=== PATIENT | female | born 1970 | race Caucasian/White ===

== ENCOUNTER 2017-09-10 19:21 | Inpatient (IN) ==
--- NOTE | 2017-09-10 19:41 | Emergency Department Note ---
Disposition Clinical Impression: Pneumonia Qualifiers: Pneumonia type: due to unspecified organism Laterality: bilateral Lung location : unspecified part of lung Qualified Code(s): J18.9 - Pneumonia, unspecified organism Chest pain Qualifiers: Chest pain type: unspecified Qualified Code(s): R07.9 - Chest pain, unspecified Disposition: Admitted As Inpatient Condition: Fair Referrals: Joey Rg DO [Primary Care Provider] - Forms: ED Satisfaction Letter Time of Disposition: 21:54 SOB HPI - General Chief Complaint: ED Shortness of Breath/Dyspnea Stated Complaint: Dyspnea Time Seen by Provider: 09/10/17 19:37 Source: patient, family Limitations: no limitations Nursing Notes Reviewed: Yes Vital Signs Reviewed: Yes - History of Present Illness 46-year-old female who presents much permanent complaining of off congestion. Patient was diagnosed 5 days ago with pneumonia although chest x-ray wasn't done and was placed on Levaquin. Patient has a history of couple months back of the bilateral pneumonia going into arts requiring intubation for 9 days. Pt Subjective Complaint: shortness of breath, cough Onset (ago): Just [employer] Context: recent illness Severity: moderate Consistency/Duration: constant Improves with: nothing Worsens with: exertion Known history of: recurrent pneumonia Associated symptoms: Reports: fever, cough, wheezing Treatment prior to arrival: other (To biotics) Cough present: Yes Cough Frequency: Continuous - Related Data Home Medications Medication Instructions Recorded Confirmed amLODIPine [Norvasc] 5 mg PO DAILY 07/05/17 07/05/17 Previous Rx's Medication Instructions Recorded Albuterol Sulfate [Ventolin Hfa] 2 puff IH Q4-6H PRN #1 hfa.aer.ad 09/06/17 Levofloxacin [Levaquin] 500 mg PO DAILY #10 tablet 09/06/17 Promethazine/Dextromethorphan 5 ml PO Q4-6H PRN #120 ml 09/06/17 [Promethazine-Dm Syrup] predniSONE [PredniSONE] 40 mg PO DAILY #10 tablet 09/06/17 Allergies Allergy/AdvReac Type Severity Reaction Status Date / Time morphine Allergy Itching Verified 09/10/17 19:24 Past Medical History - Past Medical History Medical history: Reports: COPD, hypertension, other Surgical history: Reports: hysterectomy (2005), other (tonsillectomy) Psychiatric history: Reports: PTSD - Social History Smoking Status: Current every day smoker Smokeless Tobacco Status: No Alcohol use: Reports: none Drug use: Reports: none Physical Exam - General Limitations: no limitations General appearance: alert, in no apparent distress - Head Head exam: atraumatic, normocephalic, normal inspection - Eye Eye exam: Present: normal appearance, PERRL, EOMI - ENT ENT exam: normal exam, normal oropharynx, mucous membranes moist - Neck Neck exam: Present: normal inspection, full ROM, trachea midline - Chest Chest inspection: Present: normal inspection, symmetric chest wall rise - Respiratory Respiratory exam: Present: normal lung sounds bilaterally - Cardiovascular Cardiovascular exam: Present: regular rate, normal rhythm, normal heart sounds - Abdominal Exam Abdominal exam: Present: soft, Non-Tender. Absent: tenderness, distention, guarding, rebound, rigidity - Extremities Exam Extremities exam: Present: normal inspection, full ROM. Absent: tenderness, pedal edema - Expanded Lower Extremity Exam Neurovascular/Tendon exam: Absent: motor deficit, sensory deficit, tendon deficit Gait: observed and normal - Back Exam Back exam: Present: normal inspection, full ROM. Absent: tenderness - Neurological Exam Neurological exam: Present: alert, oriented X3 - Psychiatric Psychiatric exam: Present: normal affect, normal mood - Skin Skin exam: Present: warm, dry, intact, normal color Course - Reevaluation(s) Reevaluation #1: 46-year-old has a history of previous pneumonia causing ARDS causing a prolonged intubation. Comes in with cough and congestion. Patient was started on antibiotics but has gotten progressively worse. Workup here a CT scan does show bilateral infiltrates. Patient will be admitted for further evaluation and treatment. Time: 21:55 - Consultations Consultation #1: Discussed with , admit-he requests Zosyn, vancomycin, Zithromax Time: 21:55 Vital Signs Temperature 98.2 F 09/10/17 19:24 Pulse Rate 103 09/10/17 19:24 Respiratory Rate 24 09/10/17 19:24 Blood Pressure 150/100 09/10/17 19:24 O2 Sat by Pulse Oximetry 100 09/10/17 19:24 Temperature 98.2 F 09/10/17 19:24 Pulse Rate 103 09/10/17 19:24 Respiratory Rate 24 09/10/17 19:24 Blood Pressure 150/100 09/10/17 19:24 O2 Sat by Pulse Oximetry 100 09/10/17 19:24 Oxygen Delivery Oxygen Delivery Room Air Shortness of Breath/Dyspnea - Lab Data Lab results reviewed: Yes I reviewed the patient's lab results. Result diagrams: 09/10/17 20:09 09/10/17 20:09 Lab Results 09/10/17 09/10/17 09/10/17 Range/Units 20:09 20:09 20:09 WBC 11.0 (4.3-11.1) K/mcL RBC 4.08 (3.82-4.97) M/mcL Hgb 13.1 (11.5-15.4) g/dL Hct 37.6 (35.3-44.9) % MCV 92.2 (83.0-100.0) fL MCH 32.1 (28.0-33.3) pg MCHC 34.8 (31.6-35.5) g/dL RDW 14.6 H (11.5-14.5) % Plt Count 251 (140-400) K/mcL MPV 10.0 (9.4-12.4) fL Immature Gran % 0.5 (0-4) % Seg Neutrophils % 76.0 % Lymphocytes % 18.6 % Monocytes % 4.2 % Eosinophils % 0.5 % Basophils % 0.2 % Neutrophils # 8.3 (1.6-8.9) K/mcL Lymphocytes # 2.0 (0.6-4.6) K/mcL Monocytes # 0.5 (0.0-1.3) K/mcL Eosinophils # 0.1 (0.0-0.6) K/mcL Basophils # 0.0 (0.0-0.2) K/mcL D-Dimer (0-500) ng/mLFEU Sodium 138 (136-145) mEq/L Potassium 2.9 L (3.5-4.5) mEq/L Chloride 108 (98-109) mEq/L Carbon Dioxide 17 L (19-29) mEq/L BUN 12 (7-20) mg/dL Creatinine 0.78 (0.57-1.11) mg/dL Est GFR ( Amer) > 60 (> 60) Est GFR (Non-Af Amer) > 60 (> 60) BUN/Creatinine Ratio 15 (6-26) Glucose 95 (70-99) mg/dL Calculated Osmolality 286 (280-300) Lactic Acid 2.3 H (0.5-2.2) mmol/L Calcium 9.7 (8.6-10.8) mg/dL Troponin I (0-0.03) ng/mL B-Natriuretic Peptide (0-100) pg/mL 09/10/17 09/10/17 09/10/17 Range/Units 20:09 20:09 20:09 WBC (4.3-11.1) K/mcL RBC (3.82-4.97) M/mcL Hgb (11.5-15.4) g/dL Hct (35.3-44.9) % MCV (83.0-100.0) fL MCH (28.0-33.3) pg MCHC (31.6-35.5) g/dL RDW (11.5-14.5) % Plt Count (140-400) K/mcL MPV (9.4-12.4) fL Immature Gran % (0-4) % Seg Neutrophils % % Lymphocytes % % Monocytes % % Eosinophils % % Basophils % % Neutrophils # (1.6-8.9) K/mcL Lymphocytes # (0.6-4.6) K/mcL Monocytes # (0.0-1.3) K/mcL Eosinophils # (0.0-0.6) K/mcL Basophils # (0.0-0.2) K/mcL D-Dimer 520 H (0-500) ng/mLFEU Sodium (136-145) mEq/L Potassium (3.5-4.5) mEq/L Chloride (98-109) mEq/L Carbon Dioxide (19-29) mEq/L BUN (7-20) mg/dL Creatinine (0.57-1.11) mg/dL Est GFR ( Amer) (> 60) Est GFR (Non-Af Amer) (> 60) BUN/Creatinine Ratio (6-26) Glucose (70-99) mg/dL Calculated Osmolality (280-300) Lactic Acid (0.5-2.2) mmol/L Calcium (8.6-10.8) mg/dL Troponin I 0.01 (0-0.03) ng/mL B-Natriuretic Peptide 14 (0-100) pg/mL - Radiology Data Radiology results reviewed: Yes I reviewed the patient's radiology results. Chest X-Ray 09/10/17 19:38 IMPRESSION: No acute cardiopulmonary disease. D/ / Tj Arambula MD / Tj Arambula MD Interpreting Provider: Tj Arambula MD Chest CTA 09/10/17 20:48 IMPRESSION: No evidence of pulmonary embolism or acute aortic disease. Changes of severe emphysema as well as interstitial pneumonitis with alveolar infiltrates in the upper and lower lobes. No evidence of pleural disease or adenopathy. D/ / 09/10/2017 21:48:58 Skyla Miguel MD / joann Interpreting Provider: Skyla Miguel MD - EKG Data EKG attestation: Yes I reviewed and interpreted this EKG. EKG shows normal: Reports: sinus rhythm Rate: Reports: normal Rhythm: Reports: NSR, PVC's Interpretation: Reports: no acute changes
[2017-09-10 20:20] LABS: Basophils % 0.2 %; Eosinophils # 0.1 K/mcL (0.0-0.6); Eosinophils % 0.5 %; Hematocrit 37.6 % (35.3-44.9); Hemoglobin 13.1 g/dL (11.5-15.4); Immature Granulocytes % 0.5 % (0-4); Lymphocytes % 18.6 %; Mean Corpuscular HGB Conc 34.8 g/dL (31.6-35.5); Mean Corpuscular Hemoglobin 32.1 pg (28.0-33.3); Mean Corpuscular Volume 92.2 fL (83.0-100.0); Monocytes # 0.5 K/mcL (0.0-1.3); Monocytes % 4.2 %; Neutrophils # 8.3 K/mcL (1.6-8.9); Platelet Count 251 K/mcL (140-400); Red Blood Count 4.08 M/mcL (3.82-4.97); Red Cell Distribution Width 14.6 % (11.5-14.5)
[2017-09-10 20:31] LABS: BUN/Creatinine Ratio 15 (6-26); Blood Urea Nitrogen 12 mg/dL (7-20); Calcium 9.7 mg/dL (8.6-10.8); Carbon Dioxide 17 mEq/L (19-29); Chloride 108 mEq/L (98-109); Glucose 95 mg/dL (70-99); Osmolality,Calculated 286 (280-300); Potassium 2.9 mEq/L (3.5-4.5); Sodium 138 mEq/L (136-145); eGFR For African Americans > 60 (> 60); eGFR For Non-African Americans > 60 (> 60)
[2017-09-10] MEDS ORDERED: *HR* HYDROmorphone (PF) 1 MG/ML SYRINGE IVP ONE (21:42)
[2017-09-10] MEDS ORDERED: Ondansetron 4 MG/2 ML VIAL IVP ONE (21:42)
[2017-09-10] MEDS ORDERED: Piperacillin/Tazobactam 3.375 GM in D5% in Water (Mini-Bag+) 100 ML IVPB ONE (21:52)
[2017-09-10] MEDS ORDERED: Azithromycin 500 MG in D5% in Water 250 ML IVPB ONE (21:52)
[2017-09-10] MEDS ORDERED: Vancomycin 1,000 MG in D5% in Water 250 ML IVPB ONE (21:52)
[2017-09-10] MEDS ORDERED: Ondansetron 4 MG/2 ML VIAL IVP PRN (22:00)
[2017-09-10] MEDS ORDERED: Naloxone 0.4 MG/ML INJ IVP PRN (22:00)
[2017-09-10] MEDS ORDERED: Acetaminophen 325 MG TABLET PO PRN (22:00)
[2017-09-10] MEDS ORDERED: Piperacillin/Tazobactam 3.375 GM in Water for inj. (sterile) 20 ML IVPB ONE (22:15)
--- NOTE | 2017-09-10 22:57 | Internal Med History&Physical ---
Date of Encounter: 09/10/17 Time of Encounter: 22:15 Assessment and Plan (1) Acute respiratory distress Current visit: Yes Status: Acute Will admit the pt into Tele Reviewed CTA of chest : No evidence of pulmonary embolism . acute interstitial pneumonitis with alveolar infiltrates in the upper and lower lobes Reviewed CXR by myself - showed acute infiltrates in both lower lobes, [place] bronchial cuffing and thickening noticed Started her on high dose IV steroids Also placed her on frequent Duoneb + O2 With recent VDRF, she is high risk for resp failure and ARDS again, need high level care and close monitoring will start her on empirical abx Cefepime, Levaquin and Vancomycin Lactic acid trended down Will f/u on blood cx sent for sputum cx, Strep PNA, Legionella and Resp viral panel (2) COPD with acute exacerbation Current visit: Yes Status: Acute started her on high dose IV steroids cont Duoneb (3) Pneumonia Current visit: Yes Status: Acute Mostly bacterial on empirical abx Qualifiers: Pneumonia type: due to unspecified organism Laterality: bilateral Lung location: unspecified part of lung Qualified Code(s): J18.9 - Pneumonia, unspecified organism (4) Tobacco dependence Current visit: Yes Status: Acute Counseled to quit placed her on nicotine patch Internal Medicine - H&P: HPI Chief complaint: Shortness of breath Admitted From: Emergency Dept Plans for Post Hospital Care: Home History of present illness: Ms. Bonilla is a 46 year old female with possible COPD, Chronic tobacco dependence who was admitted here in June with respiratory failure due to pneumonia, got intubated too, now she presented to ER with 7 - 10 days h/o progressively worsening SOB and Cough and expectoration. Pt was seen at urgent care center few days ago started her on PO Steroids and Abx Levaquin. However her symptoms has not improved. She denied any CP. She is alert, awake and O x 3 , able to finish full sentence wit out any pause. Her CT of Chest showed interstitial pnuemonitis Past Med Surg Social Fam HX - Past Medical History Medical history: COPD, hypertension, other Psychiatric history: PTSD - Past Surgical History Surgical History: hysterectomy (2006), other (tonsillectomy) - Social History Smoking Status: Current every day smoker Smokeless Tobacco Status: No Alcohol use: none Drug use: none - Additional Family History Additional family history: Family hsitory reviewed and non contribuitory to current problem. Internal Medicine - H&P: Meds amLODIPine [Norvasc] 5 mg PO DAILY 07/05/17 [History] Albuterol Sulfate [Ventolin Hfa] 2 puff IH Q4-6H PRN #1 hfa.aer.ad 09/06/17 [Rx] Levofloxacin [Levaquin] 500 mg PO DAILY #10 tablet 09/06/17 [Rx] Promethazine/Dextromethorphan [Promethazine-Dm Syrup] 5 ml PO Q4-6H PRN #120 ml 09/06/17 [Rx] predniSONE [PredniSONE] 40 mg PO DAILY #10 tablet 09/06/17 [Rx] 3 Allergy/AdvReac Type Severity Reaction Status Date / Time morphine Allergy Itching Verified 09/10/17 19:24 All Systems PM: A 10-system review of systems was performed and is negative for pertinent findings except as documented above in the HPI. Review of systems: All the systems are reviewed everything is benign except the systems and symptoms I mentioned in the history of present illness - Constitutional Vitals: Temp Pulse Resp BP Pulse Ox 98.2 F 83 18 129/89 98 09/10/17 19:24 09/10/17 22:26 09/10/17 22:36 09/10/17 22:36 09/10/17 22:26 General appearance: Present: A&O X 3, no acute distress, answers questions appropriately - Head Head exam: Present: atraumatic, normal inspection - Neck Neck exam general surgery: Present: supple - Respiratory Respiratory exam: Present: decreased breath sounds, respiratory distress (mild) , rhonchi (mild), wheezes (diffuse wheezing). Absent: rales - Cardiovascular Cardiovascular exam: Present: RRR, +S1, +S2. Absent: diastolic murmur, gallop, rubs, systolic murmur - GI/Abdominal GI/Abdominal exam: Present: normal bowel sounds, soft, no peritoneal signs. Absent: distended, tenderness - Extremities Exam Extremities exam: Absent: calf tenderness, pedal edema, tenderness - Back Exam Back exam: Absent: CVA tenderness (L), CVA tenderness (R) - Neurological Exam Neurological exam: Present: alert, oriented X3 - Psychiatric Psychiatric exam: Present: anxious - Skin Skin exam: Absent: rash Internal Med - H&P Results - Labs CBC & Chem 7: 12/17/17 20:09 09/10/17 20:09
[2017-09-10] MEDS ORDERED: Vancomycin 1,250 MG in D5% in Water 250 ML IVPB SCH (23:00)
[2017-09-10] MEDS: Ipratropium/Albuterol Neb 3 ML IH SCH ×2 (23:50→23:51)
[2017-09-11] MEDS: Nicotine 21 MG PATCH.TD24 TD SCH ×2 (00:03→07:37)
[2017-09-11] MEDS: Cefepime HCl 1,000 MG in Water for inj. (sterile) 10 ML IVPB SCH ×3 (00:03→15:12)
[2017-09-11] MEDS: MethylPREDNISolone 40 MG/ML VIAL IVP SCH ×4 (00:04→16:41)
[2017-09-11] MEDS: *HR* HYDROcodone/Acet 5/325 mg TABLET PO PRN ×4 (00:09→20:12)
[2017-09-11] MEDS: *HR* HYDROmorphone (PF) 1 MG/ML SYRINGE IVP PRN ×3 (04:08→16:41)
[2017-09-11] MEDS: Ipratropium/Albuterol Neb 3 ML IH SCH ×6 (04:21→23:03)
[2017-09-11 04:32] LABS: Basophils % 0.1 %; Eosinophils % 0.1 %; Hematocrit 33.4 % (35.3-44.9); Immature Granulocytes % 0.4 % (0-4); Lymphocytes # 0.8 K/mcL (0.6-4.6); Lymphocytes % 10.6 %; Mean Corpuscular HGB Conc 33.5 g/dL (31.6-35.5); Mean Corpuscular Hemoglobin 32.2 pg (28.0-33.3); Mean Platelet Volume 10.3 fL (9.4-12.4); Monocytes # 0.2 K/mcL (0.0-1.3); Neutrophils # 6.4 K/mcL (1.6-8.9); Platelet Count 190 K/mcL (140-400); Red Blood Count 3.48 M/mcL (3.82-4.97); Red Cell Distribution Width 14.8 % (11.5-14.5); Segmented Neutrophils % 86.8 %
[2017-09-11 04:35] LABS: Hemoglobin 11.2 g/dL (11.5-15.4)
[2017-09-11 04:46] LABS: BUN/Creatinine Ratio 14 (6-26); Blood Urea Nitrogen 11 mg/dL (7-20); Calcium 8.7 mg/dL (8.6-10.8); Carbon Dioxide 20 mEq/L (19-29); Chloride 110 mEq/L (98-109); Glucose 116 mg/dL (70-99); Magnesium 1.4 mg/dL (1.6-2.6); Osmolality,Calculated 286 (280-300); Sodium 138 mEq/L (136-145); eGFR For African Americans > 60 (> 60); eGFR For Non-African Americans > 60 (> 60)
[2017-09-11] MEDS: *HR* Enoxaparin 40 MG/0.4 ML SYRINGE SQ SCH (06:22)
[2017-09-11] MEDS: Levofloxacin 500 MG/100 ML 500 MG/100 ML BAG IVPB SCH (07:38)
[2017-09-11] MEDS: Vancomycin 1,250 MG in D5% in Water 250 ML IVPB SCH ×2 (10:54→22:18)
[2017-09-11] MEDS ORDERED: Methocarbamol 750 MG TABLET PO PRN (12:00)
[2017-09-11] MEDS ORDERED: hydrOXYzine pamoate 25 MG CAPSULE PO PRN (12:00)
[2017-09-11] MEDS: amLODIPine 5 MG TABLET PO SCH (12:52)
--- NOTE | 2017-09-11 14:30 | Internal Med Progress Note ---
Date of Encounter: 09/11/17 Time of Encounter: 14:28 - Assessment and plan (1) Pneumonia Current Visit: Yes Status: Acute Assessment and plan: HCAP Organism unknowm Hx of Pneumonia in 06/2017 with ARDS Continue vanco, levaquin, cefepime Check influenza Ag Urine legionella and Strep Ag negative, Sputum prelim no growth Patient has no O2 requirements at this time Continue to monitor Qualifiers: Pneumonia type: due to unspecified organism Laterality: bilateral Lung location: unspecified part of lung Qualified Code(s): J18.9 - Pneumonia, unspecified organism (2) COPD with acute exacerbation Current Visit: Yes Status: Acute Assessment and plan: Continue duonesb, steroids, antibipotics , as above (3) Tobacco dependence Current Visit: Yes Status: Chronic Assessment and plan: NRT - Subjective Interval history: Seen and evaluated with family at bedside 46 F admitted and being managed for COPDE and HCAP She reports she feels miinimal improvement, no new complains - Constitutional Vitals: Temp Pulse Resp BP Pulse Ox 98.5 F 82 22 135/84 99 09/11/17 11:32 09/11/17 11:32 09/11/17 11:32 09/11/17 11:32 09/11/17 11:32 General appearance: Present: A&O X 3, no acute distress, answers questions appropriately - Head Head exam: Present: atraumatic, normocephalic - Eye Eye exam: Present: PERRL, conjuntiva pink, sclera anicteric Pupils: Present: PERRL - Neck Neck exam general surgery: Present: supple, trachea midline. Absent: lymphadenopathy - Respiratory Respiratory exam: Present: decreased breath sounds - Cardiovascular Cardiovascular exam: Present: RRR, +S1, +S2. Absent: diastolic murmur, gallop, rubs, systolic murmur - GI/Abdominal GI/Abdominal exam: Present: normal bowel sounds, soft, no peritoneal signs. Absent: distended, tenderness - Extremities Exam Extremities exam: Present: warm, radial pulses palpable and symmetrical. Absent : calf tenderness, cyanotic, pedal edema - Neurological Exam Neurological exam: Present: alert, CN II-XII intact, oriented X3, no focal deficits. Absent: pronater drift, facial droop, speech deficit - Skin Skin exam: Present: dry, intact Internal Medicine: Result - Labs CBC & Chem 7: 12/18/17 04:08 09/11/17 04:08 Labs: Short CBC 09/11/17 Range/Units 04:08 WBC 7.4 (4.3-11.1) K/mcL Hgb 11.2 L D (11.5-15.4) g/dL Hct 33.4 L (35.3-44.9) % Plt Count 190 (140-400) K/mcL Neutrophils # 6.4 (1.6-8.9) K/mcL BMP 09/11/17 04:08 Sodium 138 Potassium 4.0 D Chloride 110 H Carbon Dioxide 20 BUN 11 Creatinine 0.78 Glucose 116 H Calcium 8.7 Cardiac Enzymes 09/11/17 09/11/17 Range/Units 04:08 09:20 Troponin I 0.01 0.00 (0-0.03) ng/mL - ABG Interpretation ABG results: PT/INR, D-dimer D-Dimer 520 ng/mLFEU (0-500) H 09/10/17 20:09 Consult Discharge Plan - Plan Referrals: Joey Rg DO [Primary Care Provider] - 09/12/17 2:00 pm
[2017-09-11] MEDS: Gabapentin 400 MG CAPSULE PO SCH ×2 (15:11→22:17)
[2017-09-11] MEDS ORDERED: traZODone 50 MG TABLET PO SCH (21:00)
[2017-09-12] MEDS: Cefepime HCl 1,000 MG in Water for inj. (sterile) 10 ML IVPB SCH ×2 (00:09→08:38)
[2017-09-12] MEDS: *HR* HYDROmorphone (PF) 1 MG/ML SYRINGE IVP PRN ×3 (00:10→11:51)
[2017-09-12] MEDS: MethylPREDNISolone 40 MG/ML VIAL IVP SCH ×3 (00:10→12:28)
[2017-09-12] MEDS: Ipratropium/Albuterol Neb 3 ML IH SCH ×3 (03:26→11:45)
[2017-09-12] MEDS: *HR* HYDROcodone/Acet 5/325 mg TABLET PO PRN ×2 (04:06→10:17)
[2017-09-12 04:38] LABS: Hematocrit 32.6 % (35.3-44.9); Immature Granulocytes % 0.8 % (0-4); Lymphocytes # 0.8 K/mcL (0.6-4.6); Lymphocytes % 7.6 %; Mean Corpuscular HGB Conc 33.7 g/dL (31.6-35.5); Mean Corpuscular Hemoglobin 31.7 pg (28.0-33.3); Mean Corpuscular Volume 93.9 fL (83.0-100.0); Mean Platelet Volume 10.3 fL (9.4-12.4); Monocytes # 0.2 K/mcL (0.0-1.3); Monocytes % 2.2 %; Neutrophils # 9.6 K/mcL (1.6-8.9); Platelet Count 224 K/mcL (140-400); Red Blood Count 3.47 M/mcL (3.82-4.97); Red Cell Distribution Width 14.9 % (11.5-14.5); Segmented Neutrophils % 89.4 %
[2017-09-12 04:51] LABS: Blood Urea Nitrogen 13 mg/dL (7-20); Calcium 9.5 mg/dL (8.6-10.8); Carbon Dioxide 18 mEq/L (19-29); Chloride 111 mEq/L (98-109); Glucose 155 mg/dL (70-99); Osmolality,Calculated 289 (280-300); Potassium 3.9 mEq/L (3.5-4.5); Sodium 138 mEq/L (136-145)
[2017-09-12 05:15] LABS: BUN/Creatinine Ratio 20 (6-26); eGFR For African Americans > 60 (> 60); eGFR For Non-African Americans > 60 (> 60)
[2017-09-12] MEDS: *HR* Enoxaparin 40 MG/0.4 ML SYRINGE SQ SCH (06:00)
[2017-09-12] MEDS: Nicotine 21 MG PATCH.TD24 TD SCH (08:35)
[2017-09-12] MEDS: amLODIPine 5 MG TABLET PO SCH (08:37)
[2017-09-12] MEDS: Gabapentin 400 MG CAPSULE PO SCH (08:37)
[2017-09-12] MEDS: Levofloxacin 500 MG/100 ML 500 MG/100 ML BAG IVPB SCH (10:22)
[2017-09-12 10:53] LABS: Adenovirus Not Detected (Not Detect); Bordetella Pertussis Not Detected (Not Detect); Chlamydophila pneumoniae Not Detected (Not Detect); Coronavirus 229E Not Detected (Not Detect); Coronavirus HKU1 Not Detected (Not Detect); Coronavirus NL63 Not Detected (Not Detect); Coronavirus OC43 Not Detected (Not Detect); Human Metapneumovirus Not Detected (Not Detect); Human Rhinovirus/Enterovirus Not Detected (Not Detect); Influenza A Subtype 2009 H1 Not Detected (Not Detect); Influenza A Untypeable Not Detected (Not Detect); Influenza B Not Detected (Not Detect); Mycoplasma pneumoniae Not Detected (Not Detect); Parainfluenza Virus 1 Not Detected (Not Detect); Parainfluenza Virus 2 Not Detected (Not Detect); Parainfluenza Virus 3 Not Detected (Not Detect); Parainfluenza Virus 4 Not Detected (Not Detect); Respiratory Syncytial Virus Not Detected (Not Detect)
[2017-09-12] MEDS ORDERED: Vancomycin 1,750 MG in D5% in Water 500 ML IVPB SCH (11:00)
[2017-09-12 11:01] VITALS: BP 133/78
--- NOTE | 2017-09-12 11:12 | Electrocardiograph Report ---
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
[2017-09-12] MEDS: Vancomycin 1,250 MG in D5% in Water 250 ML IVPB SCH (12:31)
--- NOTE | 2017-09-12 13:43 | Discharge Summary ---
Date of Encounter: 09/12/17 Time of Encounter: 09:40 - Discharge Diagnosis (1) Community acquired pneumonia Priority: Primary Status: Acute Comments: Patient being treated for healthcare acquired pneumonia. Prior history of pneumonia in June,. Patient was intubated and was sent to another facility in [place] for care. Patient has long-standing history of COPD with ARDS. Patient was treated with Levaquin outpatient, she did not improve and was admitted. Flu swab was negative, sputum culture was negative, strep pneumo and legionella negative, blood cultures negative 2. Patient's labs are stable, as are her vital signs. She has been treated with vancomycin, Levaquin, and cefepime for this admission. She is not requiring supplemental oxygen. She states that she has returned to her baseline and feels much better. She denies productive cough, states that she has an infrequent dry cough that is normal for her. She has been seen by pulmonology today, is suggested that perhaps she is viral in etiology. He has suggested doxycycline 100 mg by mouth twice a day for 10 days, as well as a lengthy steroid taper and office follow-up. Chest X-Ray 09/10/17 19:38 IMPRESSION: No acute cardiopulmonary disease. D/ / Tj Arambula MD / jT Arambula MD Interpreting Provider: Tj Arambula MD Chest CTA 09/10/17 20:48 IMPRESSION: No evidence of pulmonary embolism or acute aortic disease. Changes of severe emphysema as well as interstitial pneumonitis with alveolar infiltrates in the upper and lower lobes. No evidence of pleural disease or adenopathy. D/ / 09/10/2017 21:48:58 Skyla Miguel MD / joann Interpreting Provider: Skyla Miguel MD Qualifiers: Laterality: unspecified laterality Qualified Code(s): J18.9 - Pneumonia, unspecified organism (2) COPD with acute exacerbation Priority: Secondary Status: Acute Comments: Acute exacerbation. Plan as above. (3) Tobacco dependence Priority: Secondary Status: Chronic Comments: Patient states that she continues to smoke. She is currently using a nicotine patch here. Will send patient with prescription for patches after discharge. Both pulmonology and I have counseled patient on smoking cessation and increased risks due to her history. Patient is agreeable. - Discharge Medications Prescriptions: Doxycycline 100 mg PO BID #20 capsule GuaiFENesin ER [Mucinex] 600 mg PO BID PRN #30 tbbp.12hr PRN Reason: Cough Nicotine Patch [Nicoderm] 21 mg TD DAILY #30 patch.td24 predniSONE [PredniSONE] 10 mg PO DAILY #35 tablet Home Medications: amLODIPine [Norvasc] 5 mg PO DAILY 07/05/17 [History] Albuterol Sulfate [Ventolin Hfa] 2 puff IH Q4-6H PRN #1 hfa.aer.ad 09/06/17 [Rx] Levofloxacin [Levaquin] 500 mg PO DAILY #10 tablet 09/06/17 [Rx] Buspirone HCl [Buspar] 10 mg PO TID PRN 09/11/17 [History] Gabapentin [Neurontin] 800 mg PO TID 09/11/17 [History] Methocarbamol [Robaxin-750] 750 mg PO Q8H PRN 09/11/17 [History] Paroxetine [Paxil] 20 mg PO DAILY 09/11/17 [History] Trazodone HCl 100 mg PO HS 09/11/17 [History] hydrOXYzine HCl [Hydroxyzine HCl] 25 mg PO BID PRN 09/11/17 [History] Doxycycline 100 mg PO BID #20 capsule 09/12/17 [Rx] GuaiFENesin ER [Mucinex] 600 mg PO BID PRN #30 tbbp.12hr 09/12/17 [Rx] Nicotine Patch [Nicoderm] 21 mg TD DAILY #30 patch.td24 09/12/17 [Rx] predniSONE [PredniSONE] 10 mg PO DAILY #35 tablet 09/12/17 [Rx] Allergies/Adverse Reactions: 3 Allergy/AdvReac Type Severity Reaction Status Date / Time morphine Allergy Itching Verified 09/10/17 19:24 Date of admission: 09/10/17 23:40 Primary care physician: Joey Rg DO Consults: 09/12/17 13:07 Consult to Pulmonology [CONS] Routine Consulting Provider: [facility] Stephanie Reason for Consult: Recurrent pna, failed outpt treatment with fluoroquinolone. Time Notified: 13:07 Call Completed: Yes Discharging clinician: Tona Matthew Anticipated date of discharge: 09/12/17 - Patient Status Disposition: Home, Self-Care Condition: Good Functional capacity at discharge: independent ambulation Overall status at discharge: patient is back to baseline - Discharge Instructions Follow Up With: Joey Rg DO [Primary Care Provider] - 09/12/17 2:00 pm Additional Instructions: Please follow up with your primary care provider in the next 7-10 days. Please follow up with pulmonology as scheduled. Return to normal activities as tolerated. You may return to work when you are cleared by your primary care provider. Please get your prescriptions filled and take them as directed. Make sure that you take all of your antibiotics until they are gone. It is important that you stay on schedule and take them as instructed. Return to normal diet as tolerated. Continue your other home medications as tolerated. Stop smoking!!! - Diet and Activity Activity: increase activity as tolerated Diet: advance to your usual diet Hospital course: Ms. Bonilla is a 46 year old female with past medical history of ARDS, COPD, tobacco dependence. She is currently being treated for HCAP. Patient failed outpatient Levaquin and was admitted for continuing treatment. She has been seen by pulmonology and will follow-up with him in the office. She is going home with prescriptions for nicotine patches, with the prednisone taper, doxycycline 100 mg by mouth twice a day, and Mucinex as needed. She will follow up with pulmonology office. She did not require supplemental oxygen. She had no leukocytosis or tachycardia. Mildly elevated d-dimer on admission. CTA negative for PE. Her vital signs as been stable and within normal limits. Patient was discharged in stable condition. - Time Spent with Patient Total time spent providing and/or coordinating discharge services: Less than 30 minutes - Constitutional Vitals: Temp Pulse Resp BP Pulse Ox 98 F 80 16 133/78 98 09/12/17 10:58 09/12/17 10:58 09/12/17 11:47 09/12/17 10:58 09/12/17 11:47 General appearance: Present: A&O X 3, no acute distress, answers questions appropriately - Head Head exam: Present: atraumatic, normal inspection, normocephalic - Eye Eye exam: Present: normal appearance, conjuntiva pink, sclera anicteric - Neck Neck exam general surgery: Present: supple, trachea midline. Absent: lymphadenopathy, tenderness - Respiratory Respiratory exam: Present: CTAB. Absent: accessory muscle use, rales, rhonchi, wheezes - Cardiovascular Cardiovascular exam: Present: RRR, +S1, +S2. Absent: diastolic murmur, gallop, rubs, systolic murmur - GI/Abdominal GI/Abdominal exam: Present: normal bowel sounds, soft, no peritoneal signs. Absent: distended, hepatomegaly, tenderness - Extremities Exam Extremities exam: Present: normal capillary refill, normal inspection, warm, radial pulses palpable and symmetrical. Absent: calf tenderness, cyanotic, pedal edema, tenderness - Neurological Exam Neurological exam: Present: alert, oriented X3, no focal deficits. Absent: facial droop, speech deficit - Skin Skin exam: Present: dry, intact, rash, warm
--- NOTE | 2017-09-12 14:21 | Pulmonology Consult Note ---
Date of Encounter: 09/12/17 Time of Encounter: 14:30 Assessment and Plan (1) COPD exacerbation Current Visit: Yes Status: Acute Patient presentation looks like unresolved COPD exacerbation , reviewing the CT scan showed centrilobular emphysematous changes has some bilateral ground - glass opacities looks like these can be chronic interstitial changes after ARDS as takes 3-4 months to get better or it can be due to atypical pneumonia/viral pneumonia , can be inflammatory pneumonia like RB ILD / Desquamative interstitial pneumonitis due to her chronic smoking. I doubt with as she is back to baseline highly doubt this is Acute Interstitial pneumonitis, will send her home om prolong steroid taper 40 mg x 3 day , 30 mg x4 days , 20 mg x 4days , 10 mg x 4days the stop . To send her home on symbicort and albuterol prn . Home antibiotics Doxycycline 100 mg BID. (2) Atypical pneumonia Current Visit: Yes Status: Acute Patient ground glass opacities can due to recovering chronic interstitial changes post ARDS changes vs Atypical pneumonia or Viral pneumonia the latter is more likely as last week has flu like symptoms all her flu work up and atypical work up was negative , there is possibility this can be inflammatory pneumonia like RB-ILD , Desquamative interstitial pneumonitis will do follow up as imaging in 6-8 weeks counseled to stop smoking that will reverse her ground glass opacities will see her in 6-8 weeks as an outpatient. History of Present Illness Consult date: 09/12/17 Requesting physician: Tona Matthew Reason for consult: COPD, abnormal CXR/CT Chief complaint: Shortness of breadth History of present illness: 46 year old female with past medical history significant for ,Chronic smoker, COPD had a severe episode of pneumonia ARDS picture needed lot of ventilatory support was in [facility] ICU for few days then she was transferred to [facility] ICU she did well recovered from then went home , 5 days ago she got flu like symptoms had outpatient therapy of levaquin and 5 days course of prednisone didnt get better came to [facility] ED got admitted treated as pneumonia failed outpatient therapy . CTA showed emphysematous changes and ground glass opacities , no PE , pulmonary was consulted for ? interstitial pneumonitis. Patient denies any chest pain , has cough not much sputum production , denies any constitutional symptoms , denies any GI or Neuro symptoms says her symptoms lot better and she is back to baseline. Past Med Surg Social Fam HX - Past Medical History Medical history: COPD, hypertension, other Psychiatric history: PTSD - Past Surgical History Surgical History: cholecystectomy, hysterectomy, other - Social History Smoking Status: Current every day smoker Packs per day: 0.5 Smokeless Tobacco Status: No Alcohol use: none Drug use: none - Family History Mother Living Status: Still Living Hx Family Cardiac Disorders: Yes (cabg, chf, htn) Hx Family Respiratory Disorders: Yes (emphysema) Hx Family Endocrine Disorder: Yes (dm) Father Living Status: Still Living Hx Family Cardiac Disorders: Yes (heart disease) Medications and Allergies amLODIPine [Norvasc] 5 mg PO DAILY 07/05/17 [History] Albuterol Sulfate [Ventolin Hfa] 2 puff IH Q4-6H PRN #1 hfa.aer.ad 09/06/17 [Rx] Levofloxacin [Levaquin] 500 mg PO DAILY #10 tablet 09/06/17 [Rx] Buspirone HCl [Buspar] 10 mg PO TID PRN 09/11/17 [History] Gabapentin [Neurontin] 800 mg PO TID 09/11/17 [History] Methocarbamol [Robaxin-750] 750 mg PO Q8H PRN 09/11/17 [History] Paroxetine [Paxil] 20 mg PO DAILY 09/11/17 [History] Trazodone HCl 100 mg PO HS 09/11/17 [History] hydrOXYzine HCl [Hydroxyzine HCl] 25 mg PO BID PRN 09/11/17 [History] Doxycycline 100 mg PO BID #20 capsule 09/12/17 [Rx] GuaiFENesin ER [Mucinex] 600 mg PO BID PRN #30 tbbp.12hr 09/12/17 [Rx] Nicotine Patch [Nicoderm] 21 mg TD DAILY #30 patch.td24 09/12/17 [Rx] predniSONE [PredniSONE] 10 mg PO DAILY #35 tablet 09/12/17 [Rx] 3 Allergy/AdvReac Type Severity Reaction Status Date / Time morphine Allergy Itching Verified 09/10/17 19:24 All Systems: A 10-system review of systems was performed and is negative for pertinent findings except as documented above in the HPI. Physical Examination Vital Signs: Vital Signs, Last 4 Hours Temp Pulse Resp BP Pulse Ox 09/12/17 11:47 16 98 09/12/17 10:58 98 F 80 16 133/78 99 Auscultation: bilateral: clear Results - Laboratory Findings CBC and BMP: 09/12/17 04:09 09/12/17 04:09 PT/INR, D-dimer D-Dimer 520 ng/mLFEU (0-500) H 09/10/17 20:09 Abnormal lab findings: Abnormal lab results RBC 3.47 M/mcL (3.82-4.97) L 09/12/17 04:09 Hgb 11.0 g/dL (11.5-15.4) L 09/12/17 04:09 Hct 32.6 % (35.3-44.9) L 09/12/17 04:09 RDW 14.9 % (11.5-14.5) H 09/12/17 04:09 Neutrophils # 9.6 K/mcL (1.6-8.9) H 09/12/17 04:09 D-Dimer 520 ng/mLFEU (0-500) H 09/10/17 20:09 Chloride 111 mEq/L (98-109) H 09/12/17 04:09 Carbon Dioxide 18 mEq/L (19-29) L 09/12/17 04:09 Glucose 155 mg/dL (70-99) H 09/12/17 04:09 Magnesium 1.4 mg/dL (1.6-2.6) L 09/11/17 04:08 - Microbiology Findings Microbiology Findings: Microbiology, Last 48 Hours 09/11/17 15:17 Influenza Types A,B Antigen ([facility]) - Final Nasopharyngeal 09/11/17 08:55 Sputum Culture - Final Sputum 09/11/17 07:33 Legionella Antigen - Final Urine,Clean Catch Streptococcus pneumoniae Antigen (M - Final - Clinical Findings Intake & Output: Intake & Output 09/11/17 09/12/17 09/12/17 23:59 07:59 15:59 Intake Total 550 / 550 260 / 260 240 / 240 Output Total 900 / 900 200 / 200 500 / 500 Balance -350 / -350 60 / 60 -260 / -260 Weight 81.238 kg Consult Discharge Plan - Plan Additional Instructions: Please follow up with your primary care provider in the next 7-10 days. Please follow up with pulmonology as scheduled. Return to normal activities as tolerated. You may return to work when you are cleared by your primary care provider. Please get your prescriptions filled and take them as directed. Make sure that you take all of your antibiotics until they are gone. It is important that you stay on schedule and take them as instructed. Return to normal diet as tolerated. Continue your other home medications as tolerated. Stop smoking!!! Referrals: Joey Rg DO [Primary Care Provider] - 09/12/17 2:00 pm Prescriptions: Doxycycline 100 mg PO BID #20 capsule GuaiFENesin ER [Mucinex] 600 mg PO BID PRN #30 tbbp.12hr PRN Reason: Cough Nicotine Patch [Nicoderm] 21 mg TD DAILY #30 patch.td24 predniSONE [PredniSONE] 10 mg PO DAILY #35 tablet
[2017-09-12] MEDS ORDERED: Aminoglycoside Consult 1 EACH MC ONE (15:25)
== END 2017-09-12 15:26 | disposition home or self-care (01) | DRG 140 ==
LOC: 3BNU 19:21 → EMEROO 19:21 → 3BNU 22:40 → SUATTDRO 23:40
PROVIDERS: ADMIT Internal Medicine Hematology & Oncology; ATTEND Internal Medicine

== ENCOUNTER 2017-10-14 19:58 | Inpatient (IN) ==
[2017-10-14] MEDS ORDERED: 0.9 % Sodium Chloride 1,000 ML IVC ONE ×2 (20:02→23:08)
[2017-10-14] MEDS ORDERED: methylPREDNISolone 125 MG/2 ML VIAL IVP ONE (20:02)
[2017-10-14] MEDS ORDERED: Ipratropium/Albuterol Neb 3 ML IH ONE (20:02)
[2017-10-14] MEDS ORDERED: *HR* FentaNYL (PF) 100 MCG/2 ML VIAL IVP ONE (20:24)
[2017-10-14] MEDS: Nitroglycerin 0.4 MG TAB.SUBL SL PRN ×2 (20:34→20:42)
[2017-10-14 20:44] LABS: Basophils % 0.1 %; Hematocrit 35.3 % (35.3-44.9); Hemoglobin 11.7 g/dL (11.5-15.4); Immature Granulocytes % 1.3 % (0-4); Immature Platelets 1.9 % (1.1-6.1); Lymphocytes # 1.3 K/mcL (0.6-4.6); Lymphocytes % 6.1 %; Mean Corpuscular HGB Conc 33.1 g/dL (31.6-35.5); Mean Corpuscular Hemoglobin 32.4 pg (28.0-33.3); Mean Corpuscular Volume 97.8 fL (83.0-100.0); Mean Platelet Volume 9.3 fL (9.4-12.4); Monocytes # 0.9 K/mcL (0.0-1.3); Monocytes % 4.1 %; Neutrophils # 19.1 K/mcL (1.6-8.9); Platelet Count 399 K/mcL (140-400); Red Blood Count 3.61 M/mcL (3.82-4.97); Red Cell Distribution Width 16.2 % (11.5-14.5); Segmented Neutrophils % 88.4 %
[2017-10-14 20:55] LABS: BUN/Creatinine Ratio 13 (6-26); Blood Urea Nitrogen 11 mg/dL (6-20); Calcium 9.2 mg/dL (8.6-10.3); Carbon Dioxide 15 mEq/L (23-29); Chloride 116 mEq/L (98-107); Glucose 123 mg/dL (70-105); Osmolality,Calculated 295 (280-300); Sodium 142 mEq/L (136-145); eGFR For African Americans > 60 (> 60); eGFR For Non-African Americans > 60 (> 60)
[2017-10-14] MEDS ORDERED: Aspirin 81 MG TAB.CHEW PO STA (21:04)
[2017-10-14 21:39] LABS: ABG Base Excess -9 mEq/L (-2 to 3); ABG HCO3 15 mEq/L (21-27); ABG Oxygen Saturation 97 % (95-98); ABG PCO2 28 mmHg (35-45); ABG PH 7.34 pH Units (7.32-7.45); ABG PO2 96 mmHg (85-104); ABG TCO2 16 mEq/L (20-26)
[2017-10-14] MEDS ORDERED: *HR* Heparin 5,000 UNIT/ML VIAL IVP PRN (21:39)
[2017-10-14] MEDS ORDERED: *HR* Heparin 5,000 UNIT/ML VIAL IVP ONE (21:39)
[2017-10-14] MEDS ORDERED: Piperacillin/Tazobactam 3.375 GM in D5% in Water (Mini-Bag+) 100 ML IVPB ONE (21:40)
[2017-10-14] MEDS ORDERED: Levofloxacin 750 MG/150 ML 750 MG/150 ML BAG IVPB ONE (21:40)
[2017-10-14] MEDS ORDERED: Vancomycin 1,000 MG in D5% in Water 250 ML IVPB ONE (21:40)
[2017-10-14 21:50] LABS: INR 1.1; Prothrombin Time 11.6 Seconds (9.4-12.1)
[2017-10-14 21:53] LABS: Activated Partial Thrombo Time 26.2 Seconds (26.0-36.0)
[2017-10-14] MEDS: Heparin 25,000 UNIT/500 ML D5W 25,000 UNIT/500 ML BAG IVC SCH (22:01)
[2017-10-14] MEDS: Nitroglycerin 25 MG/250 ML INFUS..BTL IVC SCH (22:03)
[2017-10-14] MEDS ORDERED: *HR* LORazepam 2 MG/ML VIAL IVP ONE (22:26)
--- NOTE | 2017-10-14 23:01 | Emergency Department Note ---
Disposition Clinical Impression: NSTEMI (non-ST elevated myocardial infarction), Hypokalemia, Elevated brain natriuretic peptide (BNP) level, Elevated lactic acid level Pneumonia Qualifiers: Pneumonia type: due to unspecified organism Laterality: unspecified laterality Lung location: unspecified part of lung Qualified Code(s): J18.9 - Pneumonia, unspecified organism Disposition: Admitted As Inpatient Condition: Fair General Adult HPI - General Chief complaint: ED Shortness of Breath/Dyspnea Stated complaint: SOB Time Seen by Provider: 10/14/17 20:02 Source: patient, EMS Limitations: no limitations Nursing Notes Reviewed: Yes Vital Signs Reviewed: Yes - History of Present Illness HPI Narrative: Patient presents for evaluation of shortness of breath and chest pain. Patient states that she has a history of COPD. Patient was placed on a ventilator secondary to arts in June. Patient states that she is had a cough that began on Monday. Treated by primary care physician with azithromycin and steroids. Patient did not have any significant improvement. Patient was told to come to the ER for admission. Patient did not initially come. Patient then developed chest pain today. Patient chest pain described is in the center of her chest. Patient's chest pain resolved partially with nitroglycerin. Patient shortness of breath has improved somewhat with DuoNeb's. Patient is requiring 2 L of oxygen to keep her at 97%. No previous oxygen requirement. The patient's does not describe previous fevers or other typical infectious symptoms. Will investigate further with EKG and blood work. Pain Scale: 9 - Related Data Home Medications Medication Instructions Recorded Confirmed amLODIPine [Norvasc] 5 mg PO DAILY 07/05/17 10/15/17 Trazodone HCl 100 mg PO HS 09/11/17 10/15/17 hydrOXYzine HCl [Hydroxyzine HCl] 25 mg PO BID PRN 09/11/17 10/15/17 Buspirone HCl [Buspar] 10 mg PO TID 10/15/17 10/15/17 Duloxetine HCl [Cymbalta] 60 mg PO DAILY 10/15/17 10/15/17 Gabapentin [Neurontin] 600 mg PO TID 10/15/17 10/15/17 Melatonin/Pyridoxine HCl (B6) 3 mg PO HS 10/15/17 10/15/17 [Melatonin 3 mg Tablet] Omeprazole [PriLOSEC] 40 mg PO DAILY 10/15/17 10/15/17 Oxycodone HCl/Acetaminophen 1 tab PO TID PRN 10/15/17 10/15/17 [Percocet 10-325 mg Tablet] Tizanidine HCl [Zanaflex] 4 mg PO TID 10/15/17 10/15/17 Previous Rx's Medication Instructions Recorded Albuterol Sulfate [Ventolin Hfa] 2 puff IH Q4-6H PRN #1 hfa.aer.ad 09/06/17 Allergies Allergy/AdvReac Type Severity Reaction Status Date / Time morphine Allergy Itching Verified 10/14/17 20:00 Review of Systems: CONSTITUTIONAL: Fatigue No weight loss, fever, chills, weakness HEENT: Eyes: No visual changes. Ears, Nose, Throat: No hearing loss, difficulty talking or unable to swallow. SKIN: No rash or itching. CARDIOVASCULAR: Chest pain RESPIRATORY: No shortness of breath GASTROINTESTINAL: No anorexia, nausea, vomiting or diarrhea. No abdominal pain or blood. GENITOURINARY: No burning on urination or hematuria. NEUROLOGICAL: No headache, dizziness, syncope, paralysis, ataxia, numbness or tingling in the extremities. No change in bowel or bladder control. MUSCULOSKELETAL: No muscle pain, back pain, joint pain or stiffness. Past Medical History - Past Medical History Attestation: Yes The following information was validated with the patient. Medical history: Reports: COPD, hypertension, other Surgical history: Reports: cholecystectomy, hysterectomy, other Psychiatric history: Reports: anxiety, depression, PTSD - Social History Smoking Status: Current some day smoker Smokeless Tobacco Status: No Alcohol use: Reports: none Drug use: Reports: none Physical Exam General appearance: Respiratory distress Eyes: anicteric sclerae, moist conjunctivae; PERRL HENT: Atraumatic; oropharynx clear with moist mucous membranes and no mucosal ulcerations Neck: Normal inspection; Trachea midline; FROM, supple Lungs: Wheezing and rhonchi CV: Regular rhythm Abdomen: Soft, non-tender; no rebound or gaurding Extremities: No peripheral edema or extremity lymphadenopathy Skin: Normal temperature; no rash, ulcers or lesions Psych: Appropriate mood and affect Neuro: alert and oriented to person, place and time - General Limitations: no limitations General appearance: alert Course Course Narrative: Patient does not have any significant factors for DVT. D-dimer performed and negative. Patient has elevated troponin as well as BNP. Patient's chest x-ray has concern for pneumonia. Cultures are been obtained. Broad-spectrum antibiotics given. The patient has been placed on nitro drip to control her pain as well as heparin for concern for ACS. Case will be discussed with the hospitalist as well as cardiology. - Consultations Consultation #1: Discussed with director vaccine, Drs. Clements. Patient should be placed on heparin and continued to be managed chest pain-free. They will evaluate as a consult. Consultation #2: Discussed with hospitalist, Dr. Vo. Patient accepted for admission. Vital Signs Temperature 97.3 F L 10/14/17 20:01 Pulse Rate 104 10/14/17 20:01 Respiratory Rate 30 10/14/17 20:01 Blood Pressure 133/109 10/14/17 20:01 O2 Sat by Pulse Oximetry 100 10/14/17 20:01 Temperature 98.7 F 10/15/17 08:15 Pulse Rate 101 10/15/17 10:54 Respiratory Rate 19 10/15/17 10:30 Blood Pressure 114/73 10/15/17 10:30 O2 Sat by Pulse Oximetry 100 10/15/17 10:30 Oxygen Delivery Oxygen Delivery Nasal Cannula Medical Decision Making - Lab Data Result diagrams: 10/15/17 02:26 10/15/17 02:26 Lab Results 10/14/17 10/14/17 10/14/17 Range/Units 20:31 20:31 20:31 WBC 21.6 H (4.3-11.1) K/mcL RBC 3.61 L (3.82-4.97) M/mcL Hgb 11.7 (11.5-15.4) g/dL Hct 35.3 (35.3-44.9) % MCV 97.8 (83.0-100.0) fL MCH 32.4 (28.0-33.3) pg MCHC 33.1 (31.6-35.5) g/dL RDW 16.2 H (11.5-14.5) % Plt Count 399 (140-400) K/mcL MPV 9.3 L (9.4-12.4) fL Immature Gran % 1.3 (0-4) % Seg Neutrophils % 88.4 % Lymphocytes % 6.1 % Monocytes % 4.1 % Eosinophils % 0.0 % Basophils % 0.1 % Neutrophils # 19.1 H (1.6-8.9) K/mcL Lymphocytes # 1.3 (0.6-4.6) K/mcL Monocytes # 0.9 (0.0-1.3) K/mcL Eosinophils # 0.0 (0.0-0.6) K/mcL Basophils # 0.0 (0.0-0.2) K/mcL Immature Plt Fraction 1.9 (1.1-6.1) % PT 11.6 (9.4-12.1) Seconds INR 1.1 APTT 26.2 (26.0-36.0) Seconds D-Dimer 270 (0-500) ng/mLFEU Sample Site ABG pH (7.32-7.45) pH Units ABG pCO2 (35-45) mmHg ABG pO2 (85-104) mmHg ABG HCO3 (21-27) mEq/L ABG Total CO2 (20-26) mEq/L ABG O2 Saturation (95-98) % ABG Base Excess (-2 to 3) mEq/L Gerber Test O2 Delivery Device Inspired O2 (1-15=lpm [id number]=%) Sodium 142 (136-145) mEq/L Potassium 3.0 L (3.5-5.1) mEq/L Chloride 116 H (98-107) mEq/L Carbon Dioxide 15 L (23-29) mEq/L BUN 11 (6-20) mg/dL Creatinine 0.84 (0.60-1.20) mg/dL Est GFR ( Amer) > 60 (> 60) Est GFR (Non-Af Amer) > 60 (> 60) BUN/Creatinine Ratio 13 (6-26) Glucose 123 H (70-105) mg/dL Calculated Osmolality 295 (280-300) Lactic Acid (0.5-2.2) mmol/L Calcium 9.2 (8.6-10.3) mg/dL Troponin I (< 0.04) ng/mL B-Natriuretic Peptide (Less than 100) pg/mL 10/14/17 10/14/17 10/14/17 Range/Units 20:31 20:31 20:31 WBC (4.3-11.1) K/mcL RBC (3.82-4.97) M/mcL Hgb (11.5-15.4) g/dL Hct (35.3-44.9) % MCV (83.0-100.0) fL MCH (28.0-33.3) pg MCHC (31.6-35.5) g/dL RDW (11.5-14.5) % Plt Count (140-400) K/mcL MPV (9.4-12.4) fL Immature Gran % (0-4) % Seg Neutrophils % % Lymphocytes % % Monocytes % % Eosinophils % % Basophils % % Neutrophils # (1.6-8.9) K/mcL Lymphocytes # (0.6-4.6) K/mcL Monocytes # (0.0-1.3) K/mcL Eosinophils # (0.0-0.6) K/mcL Basophils # (0.0-0.2) K/mcL Immature Plt Fraction (1.1-6.1) % PT (9.4-12.1) Seconds INR APTT (26.0-36.0) Seconds D-Dimer (0-500) ng/mLFEU Sample Site ABG pH (7.32-7.45) pH Units ABG pCO2 (35-45) mmHg ABG pO2 (85-104) mmHg ABG HCO3 (21-27) mEq/L ABG Total CO2 (20-26) mEq/L ABG O2 Saturation (95-98) % ABG Base Excess (-2 to 3) mEq/L Gerber Test O2 Delivery Device Inspired O2 (1-15=lpm [id number]=%) Sodium (136-145) mEq/L Potassium (3.5-5.1) mEq/L Chloride (98-107) mEq/L Carbon Dioxide (23-29) mEq/L BUN (6-20) mg/dL Creatinine (0.60-1.20) mg/dL Est GFR ( Amer) (> 60) Est GFR (Non-Af Amer) (> 60) BUN/Creatinine Ratio (6-26) Glucose (70-105) mg/dL Calculated Osmolality (280-300) Lactic Acid 3.2 H (0.5-2.2) mmol/L Calcium (8.6-10.3) mg/dL Troponin I 0.93 H* (< 0.04) ng/mL B-Natriuretic Peptide 1125 H (Less than 100) pg/mL 10/14/17 10/14/17 Range/Units 21:34 22:38 WBC (4.3-11.1) K/mcL RBC (3.82-4.97) M/mcL Hgb (11.5-15.4) g/dL Hct (35.3-44.9) % MCV (83.0-100.0) fL MCH (28.0-33.3) pg MCHC (31.6-35.5) g/dL RDW (11.5-14.5) % Plt Count (140-400) K/mcL MPV (9.4-12.4) fL Immature Gran % (0-4) % Seg Neutrophils % % Lymphocytes % % Monocytes % % Eosinophils % % Basophils % % Neutrophils # (1.6-8.9) K/mcL Lymphocytes # (0.6-4.6) K/mcL Monocytes # (0.0-1.3) K/mcL Eosinophils # (0.0-0.6) K/mcL Basophils # (0.0-0.2) K/mcL Immature Plt Fraction (1.1-6.1) % PT (9.4-12.1) Seconds INR APTT (26.0-36.0) Seconds D-Dimer (0-500) ng/mLFEU Sample Site L Radial ABG pH 7.34 (7.32-7.45) pH Units ABG pCO2 28 L (35-45) mmHg ABG pO2 96 (85-104) mmHg ABG HCO3 15 L (21-27) mEq/L ABG Total CO2 16 L (20-26) mEq/L ABG O2 Saturation 97 (95-98) % ABG Base Excess -9 L (-2 to 3) mEq/L Gerber Test Positive O2 Delivery Device Cannula Inspired O2 28.0 (1-15=lpm [id number]=%) Sodium (136-145) mEq/L Potassium (3.5-5.1) mEq/L Chloride (98-107) mEq/L Carbon Dioxide (23-29) mEq/L BUN (6-20) mg/dL Creatinine (0.60-1.20) mg/dL Est GFR ( Amer) (> 60) Est GFR (Non-Af Amer) (> 60) BUN/Creatinine Ratio (6-26) Glucose (70-105) mg/dL Calculated Osmolality (280-300) Lactic Acid 3.7 H (0.5-2.2) mmol/L Calcium (8.6-10.3) mg/dL Troponin I (< 0.04) ng/mL B-Natriuretic Peptide (Less than 100) pg/mL - EKG Data EKG #1 EKG attestation: Yes I reviewed and interpreted this EKG. EKG shows normal: sinus rhythm, axis Rate: normal T wave inversions noted in: v4, v5, v6 Interpretation: subendocardial ischemia EKG #2 EKG attestation: Yes I reviewed and interpreted this EKG. EKG shows normal: sinus rhythm Rate: normal Rhythm: NSR [place]/QRS: normal T wave inversions noted in: v3, v4, v5, v6 When compared to previous EKG there are: changes noted Interpretation: subendocardial ischemia - Core Measures AMI Core Measures Followed: Yes Attestation Statement - Attestation Attestation: I examined this patient and my medical decision-making was reviewed with the Resident Physician. I agree with the documented findings, disposition and treatment plan as described except to the extent set forth below. 47-year-old female presents to the ED by EMS because of chest pain. She has had chest pain today but became much more severe in the past 2 hours. Pain is radiating to her left arm. She also complains of dyspnea and frequent cough. No measured fevers. She was admitted to the hospital several months ago because of ARDS. She was also diagnosed with pneumonia 2 weeks ago and is currently on a course of Omnicef and Zithromax. She continues smoking her last heroin was 2 hours prior to arrival. Patient is very anxious and tachypneic. Oropharynx is clear mucous membranes are dry. Neck is supple. Chest is clear diminished bilaterally with no focal consolidation appreciated by auscultation. Scattered expiratory wheezes. Cardiac exam regular. Chest wall is tender on the left side. Abdomen soft, nondistended and nontender. Extremities warm and dry without asymmetric edema. EKG suggest new T-wave inversions on the lateral leads concerning for ischemia. Chest x-ray shows infiltrate in the left lower lung. She has significant leukocytosis with white count 21,000 but only recently on steroids as well. She was found have elevated lactate as well She was started on aggressive fluid resuscitation but was also noted to have an elevated BNP of greater than 1100 Troponin was elevated at 0.9. She had received aspirin per EMS. Given her EKG changes, elevated troponin and her symptoms she was started on IV heparin and IV Condition with some improvement. She was started on broad-spectrum antibiotics and treated for sepsis but with caution regarding the fluid resuscitation because of her overall clinical scenario. She will be admitted for further treatment and intervention. The high probability of a clinically significant, sudden or life threatening deterioration of the [cardiopulmonary] system(s) required my full and direct attention, intervention and personal management. The aggregate critical care time was [40] minutes. This time is in addition to time spent performing reported procedures but includes the following: [x] Data Review and interpretation [x] Patient assessment and monitoring of vital signs [x] Documentation [x] Medication orders and management
[2017-10-14] MEDS ORDERED: Ondansetron 4 MG/2 ML VIAL IVP ONE (23:37)
[2017-10-14] MEDS ORDERED: *HR* HYDROmorphone (PF) 1 MG/ML SYRINGE IVP ONE (23:37)
[2017-10-14] MEDS ORDERED: PIPERACILLIN IVPB ONE (23:45)
[2017-10-14] MEDS ORDERED: WATER FOR INJ IVPB ONE (23:45)
[2017-10-14] MEDS ORDERED: TAZOBACTAM IVPB ONE (23:45)
[2017-10-15] MEDS: Nicotine 14 MG PATCH.TD24 TD SCH ×2 (01:13→10:24)
[2017-10-15] MEDS ORDERED: Piperacillin/Tazobactam 3.375 GM/200 ML BAG IVPB ONE (01:30)
[2017-10-15] MEDS ORDERED: *HR* LORazepam 1 MG TABLET PO ONE (01:51)
--- NOTE | 2017-10-15 01:59 | Internal Med History&Physical ---
<Alex Massey - Last Filed: 10/15/17 01:55> Date of Encounter: 10/15/17 Time of Encounter: 01:56 Assessment and Plan (1) NSTEMI (non-ST elevated myocardial infarction) Current visit: Yes Status: Acute Patient was noted to have an elevated troponin. The patient was been experiencing chest pain. She did have some relief with nitroglycerin the emergency department. She was started on nitroglycerin drip currently at 70 g. The patient is still very anxious but states that her chest pain is beginning to improve. The patient does have some noted nonspecific ST changes as well as flipped T waves that are new from EKG performed on 09/10/2017. Cardiology was consulted and physician from the emergency Department spoke to cardiology yeast fermentation attendant who recommended heparin drip as well as admission. The patient will have an echocardiogram scheduled. Cardiology has been consulted. The patient remains on a nitroglycerin drip. The patient was administered aspirin. The patient's d-dimer is negative. EKG was repeated upon arrival to inpatient floor. No acute changes noted from EKG performed at 2200. (2) Sepsis Current visit: Yes Status: Acute Patient's chest x-ray demonstrates bilateral infrahilar opacities consistent with possible pneumonia. Given the patient's tachycardia and elevated lactic acid, the patient was started on broad-spectrum antibiotics which we will continue. The patient is currently on vancomycin and Zosyn. Lactic acid will be repeated at 4 hours after last draw. Influenza is negative. Qualifiers: Sepsis type: sepsis due to unspecified organism Qualified Code(s): A41.9 - Sepsis, unspecified organism (3) Acute respiratory distress Current visit: No Status: Acute Patient arrives in acute respiratory distress. She was placed on nasal cannula , 2 L, which has improved her symptoms. The patient still remains anxious and expressing chest discomfort but she states that her breathing has improved ever since she has been on oxygen. (4) Pneumonia Current visit: Yes Status: Acute Qualifiers: Pneumonia type: due to unspecified organism Laterality: unspecified laterality Lung location: unspecified part of lung Qualified Code(s): J18.9 - Pneumonia, unspecified organism (5) Chest pain Current visit: No Status: Acute Qualifiers: Chest pain type: unspecified Qualified Code(s): R07.9 - Chest pain, unspecified (6) COPD with acute exacerbation Current visit: No Status: Acute Given the patient's past history of COPD combined with the new infrahilar opacities, the patient is experiencing some associated COPD exacerbation. There is no obvious wheezing on auscultation in the room. We will hold steroids at this time. This appears to be more associated with opacities and infectious etiology combined with what appears to be a concern for suspected acute heart failure. (7) Elevated brain natriuretic peptide (BNP) level Current visit: Yes Status: Acute Patient has no previous history of HI. The patient has an elevated BMP here at [facility] emergency department. An echocardiogram scheduled for further evaluation. (8) Elevated lactic acid level Current visit: Yes Status: Acute (9) Elevated troponin Current visit: Yes Status: Acute (10) HTN (hypertension) Current visit: No Status: Chronic Qualifiers: Hypertension type: essential hypertension Qualified Code(s): I10 - Essential (primary) hypertension Internal Medicine - H&P: HPI Chief complaint: Dyspnea, chest pain Admitted From: Emergency Dept Plans for Post Hospital Care: Home History of present illness: Ms. Bonilla is a 47 year old female with history of COPD and previous pneumonias with admission for previous ARDS with associated pneumonia roughly 3 months ago , arrives to the emergency department complaining of a cough that began 4 days ago. The patient was seen by PCP and treated with azithromycin and steroids. Patient continued to take her medication but did not have any improvement. The patient was instructed to come to the emergency department by her PCP after the patient did not see improvement. In addition the patient states that she began experiencing left-sided chest pain that radiated into the left side of her back that began earlier today. The patient states the pain began in the retrosternal region. The patient did have relief with nitroglycerin. The patient arrived to the emergency department and was noted to be hypoxic and placed on 2 L of oxygen nasal cannula which kept her O2 saturation 97%. The patient has no previous history of O2 use but states that over the course the past few days she has been utilizing her fiance's oxygen at home. The patient denies any fevers, chills but does admit to dyspnea and cough. Within the emergency Department the patient was noted to have some nonspecific ST changes and flipped T waves from previous EKG of 09/10/2017. The patient was started on a nitroglycerin drip after receiving sublingual nitroglycerin without relief of pain completely. Cardiology was also consulted and noted that the patient should be started on heparin as well as managed to make the patient chest pain- free. Upon arrival to inpatient unit the patient's chest pain is 7 out of 10 down from a 10 out of 10 after being started on nitroglycerin. The patient is currently at 50 mics. The patient's chest x-ray does demonstrate bilateral perihilar concern for pneumonia. Blood cultures were obtained in the emergency department in the patient was started on broad-spectrum antibiotic to include Zosyn and vancomycin. The patient also had a d-dimer that was obtained which was negative. Past Med Surg Social Fam HX - Past Medical History Attestation: Yes The following information was validated with the patient. Source: patient, old records reviewed Medical history: COPD, hypertension, other Psychiatric history: anxiety, depression, PTSD - Past Surgical History Surgical History: cholecystectomy, hysterectomy, other - Social History Smoking Status: Current some day smoker Smokeless Tobacco Status: No Alcohol use: none Drug use: none Current living situation: Home, With Family Activity Level: Independent ambulation - Family History Mother Living Status: Still Living Hx Family Cardiac Disorders: Yes (cabg, chf, htn) Hx Family Respiratory Disorders: Yes (emphysema) Hx Family Endocrine Disorder: Yes (dm) Father Living Status: Still Living Hx Family Cardiac Disorders: Yes (heart disease) Internal Medicine - H&P: Meds amLODIPine [Norvasc] 5 mg PO DAILY 07/05/17 [History] Albuterol Sulfate [Ventolin Hfa] 2 puff IH Q4-6H PRN #1 hfa.aer.[id number] 09/06/17 [Rx] Gabapentin [Neurontin] 800 mg PO TID 09/11/17 [History] Trazodone HCl 100 mg PO HS 09/11/17 [History] hydrOXYzine HCl [Hydroxyzine HCl] 25 mg PO BID PRN 09/11/17 [History] GuaiFENesin ER [Mucinex] 600 mg PO BID PRN #30 tbbp.12hr 09/12/17 [Rx] Nicotine Patch [Nicoderm] 21 mg TD DAILY #30 patch.td24 09/12/17 [Rx] predniSONE [PredniSONE] 10 mg PO DAILY #35 tablet 09/12/17 [Rx] Tizanidine HCl [Zanaflex] 4 mg PO TID 10/15/17 [History] 3 Allergy/AdvReac Type Severity Reaction Status Date / Time morphine Allergy Itching Verified 10/14/17 20:00 All Systems PM: A 10-system review of systems was performed and is negative for pertinent findings except as documented above in the HPI. - Constitutional Constitutional: fatigue, malaise, weakness, no chills, no fever(s) - EENT Eyes: no change in vision, no discharge, no pain, no photophobia - Cardiovascular Cardiovascular ROS IM: chest pain, dyspnea, no edema, no irregular heart rhythm , no palpitations, no syncope - Respiratory Respiratory: cough, dyspnea - Gastrointestinal Gastrointestinal: no abdominal pain, no diarrhea, no hematemesis, no hematochezia, no melena, no nausea, no vomiting - Genitourinary Genitourinary: no change in urinary stream, no dysuria, no flank pain, no hematuria - Musculoskeletal Musculoskeletal ROS IM: no numbness, no tingling - Integumentary Integumentary IM: no rash, no unusual bruising - Neurological Neurological ROS: no confusion, no convulsions, no focal weakness, no numbness, no tingling, no tremor(s) - Psychiatric Psychiatric: anxiety - Constitutional Vitals: Temp Pulse Resp BP Pulse Ox 97.3 F L 106 22 141/100 99 10/14/17 20:01 10/15/17 00:37 10/15/17 00:11 10/15/17 00:37 10/15/17 00:37 General appearance: Present: mild distress, A&O X 3, pleasant, obese - Head Head exam: Present: atraumatic, normocephalic - Eye Eye exam: Present: PERRL, conjuntiva pink, sclera anicteric Pupils: Present: PERRL - Neck Neck exam general surgery: Present: supple, trachea midline. Absent: lymphadenopathy - Respiratory Respiratory exam: Present: rales (Mild lower lobe), tachypnea. Absent: accessory muscle use, rhonchi, wheezes - Cardiovascular Cardiovascular exam: Present: +S1, +S2, tachycardia. Absent: diastolic murmur, gallop, rubs, systolic murmur - GI/Abdominal GI/Abdominal exam: Present: normal bowel sounds, soft, no peritoneal signs. Absent: distended, tenderness - Extremities Exam Extremities exam: Present: warm, radial pulses palpable and symmetrical. Absent : calf tenderness, cyanotic, pedal edema - Neurological Exam Neurological exam: Present: CN II-XII intact, oriented X3, no focal deficits. Absent: pronater drift, facial droop, speech deficit - Psychiatric Psychiatric exam: Present: anxious - Skin Skin exam: Present: dry, intact Internal Med - H&P Results - Labs CBC & Chem 7: 10/14/17 20:31 10/14/17 20:31 - Attending Attestation I examined this patient and my medical decision-making was reviewed with the Resident Physician. I agree with the documented findings, disposition and treatment plan as described except to the extent set forth below. <Maciel Batres - Last Filed: 10/15/17 05:50> Date of Encounter: 10/15/17 Time of Encounter: 05:39 - Constitutional Constitutional: fatigue - EENT Eyes: no blurry vision, no change in vision Nose, mouth and throat: no nasal congestion, no sinus pressure, no sore throat - Cardiovascular Cardiovascular ROS IM: chest pain, dyspnea - Respiratory Respiratory: cough, dyspnea, chest congestion, excessive phlegm production - Gastrointestinal Gastrointestinal: no diarrhea, no vomiting - Genitourinary Genitourinary: no dysuria, no flank pain - Musculoskeletal Musculoskeletal ROS IM: no arthralgias, no myalgias - Integumentary Integumentary IM: no rash - Neurological Neurological ROS: no focal weakness, no headache(s) - Psychiatric Psychiatric: anxiety, no depression - Endocrine Endocrine IM: no polydipsia, no polyuria - Allergic/Immunologic Allergic/Immunologic: wheezing - Constitutional Vitals: Temp Pulse Resp BP Pulse Ox 98.1 F 110 21 110/68 98 10/15/17 04:15 10/15/17 04:15 10/15/17 04:26 10/15/17 04:15 10/15/17 04:26 General appearance: Present: mild distress, A&O X 3, pleasant Exam: patient slightly anxious but chest pain free now - Head Head exam: Present: normal inspection - Eye Eye exam: Present: PERRL. Absent: scleral icterus - ENT ENT exam: Present: mucous membranes dry, normal exam - Neck Neck exam general surgery: Present: full ROM, supple. Absent: tenderness, nuchal rigidity - Respiratory Respiratory exam: Present: rales, rhonchi. Absent: accessory muscle use, chest wall tenderness, wheezes - Cardiovascular Cardiovascular exam: Present: +S1, +S2, tachycardia. Absent: diastolic murmur, systolic murmur - GI/Abdominal GI/Abdominal exam: Present: soft. Absent: tenderness - Extremities Exam Extremities exam: Present: warm, radial pulses palpable and symmetrical. Absent : calf tenderness, tenderness - Back Exam Back exam: Absent: CVA tenderness (L), CVA tenderness (R) - Neurological Exam Neurological exam: Present: alert, CN II-XII intact, oriented X3, no focal deficits - Psychiatric Psychiatric exam: Present: anxious - Skin Skin exam: Present: dry, warm. Absent: rash Internal Med - H&P Results - Labs CBC & Chem 7: 10/15/17 02:26 10/15/17 02:26 Labs: Short CBC 10/15/17 Range/Units 02:26 WBC 20.5 H (4.3-11.1) K/mcL Hgb 10.5 L (11.5-15.4) g/dL Hct 30.8 L (35.3-44.9) % Plt Count 318 (140-400) K/mcL Neutrophils # 18.8 H (1.6-8.9) K/mcL BMP 10/15/17 02:26 Sodium 141 Potassium 3.8 D Chloride 114 H Carbon Dioxide 16 L BUN 10 Creatinine 0.72 Glucose 149 H Calcium 8.6 Cardiac Enzymes 10/15/17 Range/Units 02:26 Troponin I 0.78 H* (< 0.04) ng/mL - EKG Data -: EKG Interpreted by Myself - EKG Data EKG comments: 10/15/17 05:[address]-T changes concerning for ischemia - Diagnostic Studies Chest x-ray Status: image reviewed by me (suspect early RML process) - Attending Attestation I discussed the patient [place], PMH, ROS, lab data, and exam findings with Dr. Massey. I then saw and examined patient independently as well. Patient is now chest pain free compared to her earlier presentation. She admits to cough, congestion, and shortness of breath for about 4 -5 days prior to admission. She has had questionable subjective fevers. She denies any ill contacts. She is still smoking and trying to quit. I agree with treatment for pneumonia as well as NSTEMI. Although her symptoms are not typical, I will still order Flu test on her. Other than my comments above and noted exam findings, I agree with Dr. Massey's assessment and plan.
[2017-10-15] MEDS ORDERED: *HR* HYDROmorphone (PF) 1 MG/ML SYRINGE IVP ONE ×3 (02:05→11:33)
[2017-10-15] MEDS ORDERED: Albuterol 2.5 MG/3 ML NEBULIZER IH PRN (02:18)
[2017-10-15] MEDS: traZODone 50 MG TABLET PO SCH ×2 (02:30→20:55)
[2017-10-15 02:34] LABS: Hematocrit 30.8 % (35.3-44.9); Hemoglobin 10.5 g/dL (11.5-15.4); Immature Granulocytes % 1.4 % (0-4); Lymphocytes % 4.7 %; Mean Corpuscular HGB Conc 34.1 g/dL (31.6-35.5); Mean Corpuscular Hemoglobin 33.4 pg (28.0-33.3); Mean Corpuscular Volume 98.1 fL (83.0-100.0); Mean Platelet Volume 9.3 fL (9.4-12.4); Monocytes # 0.4 K/mcL (0.0-1.3); Monocytes % 1.9 %; Neutrophils # 18.8 K/mcL (1.6-8.9); Platelet Count 318 K/mcL (140-400); Red Blood Count 3.14 M/mcL (3.82-4.97); Red Cell Distribution Width 16.5 % (11.5-14.5)
[2017-10-15 02:53] LABS: BUN/Creatinine Ratio 14 (6-26); Blood Urea Nitrogen 10 mg/dL (6-20); Calcium 8.6 mg/dL (8.6-10.3); Carbon Dioxide 16 mEq/L (23-29); Chloride 114 mEq/L (98-107); Glucose 149 mg/dL (70-105); Osmolality,Calculated 294 (280-300); Potassium 3.8 mEq/L (3.5-5.1); Sodium 141 mEq/L (136-145); eGFR For African Americans > 60 (> 60); eGFR For Non-African Americans > 60 (> 60)
[2017-10-15] MEDS: Ipratropium/Albuterol Neb 3 ML IH SCH ×6 (04:25→23:58)
[2017-10-15] MEDS: Nitroglycerin 25 MG/250 ML INFUS..BTL IVC SCH ×3 (04:41→18:16)
[2017-10-15] MEDS ORDERED: Vancomycin (wt based) 1,000 MG VIAL IV SCH (09:00)
[2017-10-15] MEDS: Gabapentin 400 MG CAPSULE PO SCH ×3 (10:28→20:55)
[2017-10-15] MEDS: Piperacillin/Tazobactam 3.375 GM/200 ML BAG IVPB SCH ×2 (10:28→18:17)
[2017-10-15] MEDS: Vancomycin 1,500 MG in D5% in Water 250 ML IVPB SCH ×2 (10:31→22:25)
[2017-10-15 10:53] LABS: ABG Base Excess -5 mEq/L (-2 to 3); ABG HCO3 19 mEq/L (21-27); ABG Oxygen Saturation 95 % (95-98); ABG PCO2 29 mmHg (35-45); ABG PH 7.41 pH Units (7.32-7.45); ABG PO2 73 mmHg (85-104); ABG TCO2 20 mEq/L (20-26)
--- NOTE | 2017-10-15 10:56 | Pulmonology Consult Note ---
<Roosevelt Renee - Last Filed: 10/15/17 12:45> Date of Encounter: 10/15/17 Time of Encounter: 10:45 Assessment and Plan (1) Acute respiratory failure with hypoxia Current Visit: Yes Status: Acute Paitnet presented with cough and SOB X4d; Required 4L O2 via NC on arrival; subsequently improved. CXR demonstrates findings suggestive of PNA Physical exam reveals moderate respiratory distress; shortened inspiratory phase. Plan: -ABG has been ordered -Continue respiratory support and O2 via NC (2L); wean O2 and keep O2 sat at 94% -Influenzae PCR has been ordered -Duonebs scheduled Q4h -Urine tox screen and CTA of chest ordered (2) NSTEMI (non-ST elevated myocardial infarction) Current Visit: Yes Status: Acute Presented with CP; relieved by nitro Troponins have been as follows: 0.93, 0.78 EKG: nonspecific ST changes as well as flipped T waves that are new from EKG performed on 09/10/2017. Repeat EKG demonstrates similar findings Was administered aspirin, 324 mg PO Plan: -ECHO pending -Cardiology has been consulted. -Currently on heparin drip -Nitro drip 5/min -Cardiac Diet (3) Pneumonia Current Visit: Yes Status: Acute CXR demonstrated b/l infrahilar opacities consistent with PNA Blood CX and influenza PCR are pending. Plan: -Zosyn 3.375 gm IV Q8 -Vancomycin 1500 IV Q12 Qualifiers: Pneumonia type: due to unspecified organism Laterality: unspecified laterality Lung location: unspecified part of lung Qualified Code(s): J18.9 - Pneumonia, unspecified organism (4) Sepsis Current Visit: Yes Status: Acute CXR demonstrated b/l infrahilar opacities consistent with PNA Given the patient's tachycardia and elevated lactic acid, the patient was started on BSA Lactic acid 3.7 2.2 Plan: -Zosyn 3.375 gm IV Q8 -Vancomycin 1500 IV Q12 Qualifiers: Sepsis type: sepsis due to unspecified organism Qualified Code(s): A41.9 - Sepsis, unspecified organism (5) Elevated brain natriuretic peptide (BNP) level Current Visit: Yes Status: Acute BNP was elevated at 1125. Possibly a result of ischemia. No prior hx of NE Plan: -ECHO pending. (6) COPD (chronic obstructive pulmonary disease) Current Visit: Yes Status: Acute Known hx of COPD. Initially presented SOB; sx improved with 2L O2 via NC Steroids have been held. Influenza PCR pending. Plan: -Proventil 2.5 mg IH Q2 -Duoneb 3mL IH Q4 Qualifiers: Qualified Code(s): J44.9 - Chronic obstructive pulmonary disease, unspecified History of Present Illness Consult date: 10/15/17 Reason for consult: abnormal CXR/CT Chief complaint: Chest pain History of present illness: Ms. Bonilla is a 47 year old female with PMH of COPD and previous pneumonias w/ admission for previous ARDS with associated PNA 3 months ago, presented to ED with the chief complaint of cough x 4 days. Was seen by PCP and treated with azithromycin and steroids. Patient took medication w/o improvement. The patient was instructed to come to the emergency department by her PCP after the patient did not see improvement. In addition the patient states that she began experiencing L-sided chest pain that radiated into the L side of her back that began earlier today. The patient states the pain began in the retrosternal region. The patient did have relief with nitroglycerin. The patient arrived to the ED and was noted to be hypoxic; was placed on 2 L O2 via NC which kept her O2 saturation 97%. No previous hx of O2 use, but states that over the course the past few days she has been utilizing her fiance's oxygen at home. The patient denies any fevers, chills but does admit to dyspnea and cough. Patient was tachycardic on admission at 104 bpm, RR 30. All other vital signs were within normal limits. EKG demonstrated nonspecific ST changes and flipped T waves from previous EKG of 09/10/2017. The patient was started on a nitroglycerin drip after receiving sublingual nitroglycerin without relief of pain completely. Cardiology was also consulted and noted that the patient should be started on heparin as well as managed to make the patient chest pain- free. Upon arrival to inpatient unit the patient's chest pain is 7/10 down from a 10/10 after being started on nitroglycerin. CXR demonstrated bilateral perihilar concern for pneumonia. Blood CX were obtained in the ED in the patient was started on broad-spectrum antibiotic to include Zosyn and vancomycin. Patient seen and examined at bedside this morning. Patient is in considerable distress. She complains of substernal chest pain, and is visibly tachypneic and short of breath. Past Med Surg Social Fam HX - Past Medical History Medical history: COPD, hypertension, other Psychiatric history: anxiety, depression, PTSD - Past Surgical History Surgical History: cholecystectomy, hysterectomy, other - Social History Smoking Status: Current some day smoker Smokeless Tobacco Status: No Alcohol use: none Drug use: none - Family History Mother Living Status: Still Living Hx Family Cardiac Disorders: Yes (cabg, chf, htn) Hx Family Respiratory Disorders: Yes (emphysema) Hx Family Endocrine Disorder: Yes (dm) Father Living Status: Still Living Hx Family Cardiac Disorders: Yes (heart disease) Medications and Allergies amLODIPine [Norvasc] 5 mg PO DAILY 07/05/17 [History] Albuterol Sulfate [Ventolin Hfa] 2 puff IH Q4-6H PRN #1 [email or web address] 09/06/17 [Rx] Trazodone HCl 100 mg PO HS 09/11/17 [History] hydrOXYzine HCl [Hydroxyzine HCl] 25 mg PO BID PRN 09/11/17 [History] Buspirone HCl [Buspar] 10 mg PO TID 10/15/17 [History] Duloxetine HCl [Cymbalta] 60 mg PO DAILY 10/15/17 [History] Gabapentin [Neurontin] 600 mg PO TID 10/15/17 [History] Melatonin/Pyridoxine HCl (B6) [Melatonin 3 mg Tablet] 3 mg PO HS 10/15/17 [ History] Omeprazole [PriLOSEC] 40 mg PO DAILY 10/15/17 [History] Oxycodone HCl/Acetaminophen [Percocet 10-325 mg Tablet] 1 tab PO TID PRN [History] Tizanidine HCl [Zanaflex] 4 mg PO TID 10/15/17 [History] 3 Allergy/AdvReac Type Severity Reaction Status Date / Time morphine Allergy Itching Verified 10/14/17 20:00 All Systems: A 10-system review of systems was performed and is negative for pertinent findings except as documented above in the HPI. - Cardiovascular Cardiovascular: chest pain, chest pain at rest, chest pain with activity, dyspnea, no diaphoresis, no syncope - Respiratory Respiratory: cough, dyspnea - Gastrointestinal Gastrointestinal: no heartburn Physical Examination Vital Signs: Vital Signs, Last 4 Hours Temp Pulse Resp BP Pulse Ox 10/15/17 10:30 101 19 114/73 100 10/15/17 09:55 134 120/53 10/15/17 08:30 112 110/74 98 10/15/17 08:15 98.7 F General appearance: appears uncomfortable Eyes: nonicteric ENT: oropharynx moist Neck: supple, no lymphadenopathy Effort: mildly labored Auscultation: bilateral: diminished breath sounds, other (shortened inspiratory phase) Cardiovascular: other (tachycardic) Integumentary: normal Extremities: no cyanosis Musculoskeletal: no deformities Results - Laboratory Findings CBC and BMP: 10/15/17 02:26 10/15/17 02:26 ABG ABG pH 7.34 pH Units (7.32-7.45) 10/14/17 21:34 ABG pCO2 28 mmHg (35-45) L 10/14/17 21:34 ABG pO2 96 mmHg (85-104) 10/14/17 21:34 ABG O2 Saturation 97 % (95-98) 10/14/17 21:34 PT/INR, D-dimer PT 11.6 Seconds (9.4-12.1) 10/14/17 20:31 D-Dimer 270 ng/mLFEU (0-500) 10/14/17 20:31 Abnormal lab findings: Abnormal lab results WBC 20.5 K/mcL (4.3-11.1) H 10/15/17 02:26 RBC 3.14 M/mcL (3.82-4.97) L 10/15/17 02:26 Hgb 10.5 g/dL (11.5-15.4) L 10/15/17 02:26 Hct 30.8 % (35.3-44.9) L 10/15/17 02:26 MCH 33.4 pg (28.0-33.3) H 10/15/17 02:26 RDW 16.5 % (11.5-14.5) H 10/15/17 02:26 MPV 9.3 fL (9.4-12.4) L 10/15/17 02:26 Neutrophils # 18.8 K/mcL (1.6-8.9) H 10/15/17 02:26 APTT 39.4 Seconds (26.0-36.0) H D 10/15/17 04:05 ABG pCO2 28 mmHg (35-45) L 10/14/17 21:34 ABG HCO3 15 mEq/L (21-27) L 10/14/17 21:34 ABG Total CO2 16 mEq/L (20-26) L 10/14/17 21:34 ABG Base Excess -9 mEq/L (-2 to 3) L 10/14/17 21:34 Chloride 114 mEq/L (98-107) H 10/15/17 02:26 Carbon Dioxide 16 mEq/L (23-29) L 10/15/17 02:26 Glucose 149 mg/dL (70-105) H 10/15/17 02:26 POC Glucose 150 (58-89) H 10/15/17 01:10 Troponin I 0.78 ng/mL (< 0.04) H* 10/15/17 02:26 B-Natriuretic Peptide 1125 pg/mL (Less than 100) H 10/14/17 20:31 - Clinical Findings Intake & Output: Intake & Output 10/14/17 10/15/17 10/15/17 23:59 07:59 15:59 Intake Total 750 / 1750 Output Total 2200 / 2200 Balance -1450 / -450 Weight 84 kg Consult Discharge Plan - Plan Referrals: Joey Rg DO [Primary Care Provider] - <Mike Martin - Last Filed: 10/15/17 16:49> Date of Encounter: 10/15/17 All Systems: A 10-system review of systems was performed and is negative for pertinent findings except as documented above in the HPI. Physical Examination Vital Signs: Vital Signs, Last 4 Hours Temp Pulse BP Pulse Ox 10/15/17 16:13 99.8 F H 10/15/17 15:37 106 123/93 96 10/15/17 14:30 105 107/70 10/15/17 13:28 110 121/76 10/15/17 12:40 97.9 F 10/15/17 12:15 104 114/92 96 Results - Laboratory Findings CBC and BMP: 10/15/17 02:26 10/15/17 02:26 ABG ABG pH 7.41 pH Units (7.32-7.45) 10/15/17 10:48 ABG pCO2 29 mmHg (35-45) L 10/15/17 10:48 ABG pO2 73 mmHg (85-104) L 10/15/17 10:48 ABG O2 Saturation 95 % (95-98) 10/15/17 10:48 PT/INR, D-dimer PT 11.6 Seconds (9.4-12.1) 10/14/17 20:31 D-Dimer 270 ng/mLFEU (0-500) 10/14/17 20:31 Abnormal lab findings: Abnormal lab results WBC 20.5 K/mcL (4.3-11.1) H 10/15/17 02:26 RBC 3.14 M/mcL (3.82-4.97) L 10/15/17 02:26 Hgb 10.5 g/dL (11.5-15.4) L 10/15/17 02:26 Hct 30.8 % (35.3-44.9) L 10/15/17 02:26 MCH 33.4 pg (28.0-33.3) H 10/15/17 02:26 RDW 16.5 % (11.5-14.5) H 10/15/17 02:26 MPV 9.3 fL (9.4-12.4) L 10/15/17 02:26 Neutrophils # 18.8 K/mcL (1.6-8.9) H 10/15/17 02:26 APTT 63.7 Seconds (26.0-36.0) H D 10/15/17 10:52 ABG pCO2 29 mmHg (35-45) L 10/15/17 10:48 ABG pO2 73 mmHg (85-104) L 10/15/17 10:48 ABG HCO3 19 mEq/L (21-27) L 10/15/17 10:48 ABG Base Excess -5 mEq/L (-2 to 3) L 10/15/17 10:48 Chloride 114 mEq/L (98-107) H 10/15/17 02:26 Carbon Dioxide 16 mEq/L (23-29) L 10/15/17 02:26 Glucose 149 mg/dL (70-105) H 10/15/17 02:26 POC Glucose 150 (58-89) H 10/15/17 01:10 Troponin I 0.78 ng/mL (< 0.04) H* 10/15/17 02:26 B-Natriuretic Peptide 1125 pg/mL (Less than 100) H 10/14/17 20:31 - Clinical Findings Intake & Output: Intake & Output 10/15/17 10/15/17 10/15/17 07:59 15:59 23:59 Intake Total 750 / 1750 1050 / 1050 Output Total 2200 / 2200 2800 / 2800 Balance -1450 / -450 -1750 / -1750 Weight 84 kg - Attending Attestation I saw the Patient with Resident agree with the History and Physical and his Assessment and Plan with few additional commands . Patient recovered from Severe ARDS 3 months ago from that time onwards she had increased shortness of breadth , patient has COPD with Emphysema now coming with shortness of breadth and chest pain . DATA MODELER : Patient is conscious oriented x 4 no current acute issues Neck : No JVD appreciated . CVS : NSTEMI to continue Heparin IV infusion for possible LHC will wean off Nitroglycerin drip as tolerated , patient BNP is elevated suspected diastolic / systolic dysfunction pending ECHO with CTA shows worsening ground glass opacities more pointing towards pulmonary edema , CTA negative for Pulmonary embolism RS : Acute hypoxic respiratory failure Pulmonary edema vs Viral vs atypical pneumonia vs Interstitial pneumonitis .PE negative will cowith ntinue Broad spectrum antibiotics waiting Flu viral PCR . To wean FIO2 to SPO2 around 92% will hold off diuresis as patient is on nitroglycerin . The worsening ground glass opacities in the setting of increased BNP , with myocardial ischemia more point towards heart failure , Atypical and Viral pneumonia can cause these findings as also interstitial pneumonitis will wait for ECHO results GI : Cardiac diet as tolerated NPO after midnight Renal : Labs reviewed ID : [id number] . Lactate trended down secondary to pneumonia will cover with broad spectrum antibiotics pending viral PCR . Code status : DNR DNI need to be Full code for procedures Family: Did not meet today .
--- NOTE | 2017-10-15 13:18 | Cardiology Consult Note ---
<Jb Smith - Last Filed: 10/15/17 14:06> Date of Encounter: 10/15/17 Time of Encounter: 13:15 Assessment and Plan (1) Acute respiratory failure with hypoxia Current Visit: Yes Status: Acute Per Cardiology: History of nicotine abuse and treated recently for pneumonia and ARDS. Pulmonology following. CT to rule out PE pending-- continues to experience significant respiratory distress and is tachycardic. Management per primary service. She denies any history of DVT or PE. (2) Elevated brain natriuretic peptide (BNP) level Current Visit: Yes Status: Acute Per Cardiology: BNP noted to be 1125. Echo pending. CXR: Chest X-Ray 10/14/17 20:02 IMPRESSION: Bilateral infrahilar opacity suspicious for pneumonia, improved compared the prior study. Euvolemic on exam. (3) Elevated troponin Current Visit: Yes Status: Acute Per Cardiology: Atypical chest pain. Occurring at rest and with palpation and deep inspiration. Trops noted to be 0.78 and 0.93. History of nicotine abuse and hypertension. She is DNR/DNI/Comfort Care arrest. Will add aspirin, statin, beta lopez. Echo pending. CT to rule out PE pending. Further ischemic evaluation based on pending test results. No cardiac rehabilitation consult for now, we'll reevaluate during hospital course. Suspect demand ischemia in the setting of acute on chronic respiratory failure versus non-STEMI-- no urgent LHC warranted. On heparin drip. Currently on IV nitro drip, however chest pain currently atypical. Will attempt to wean. I had lengthy discussion with patient and family regarding potential catheterization, agreeable to proceed if warranted. Again, will await CT results, echo results, and evaluate for any clinical changes and if able tolerate possibel LHC tomorrow if deemed clinically appropriate. Would need DNR status placed on hold for 24 hrs. Discussion w patient/family: The assessment and plan as outlined above was discussed with the patient and/or family members who expressed understanding and agreement. All questions were answered. Thank you for involving us in the care of your patient. Please call with any questions. History of Present Illness Consult date: 10/15/17 Requesting physician: Alex Massey Consult reason: Elevated Trop Chief complaint: CP, SOB History of present illness: Previous records reviewed: "Ms. Bonilla is a 47 year old female with PMH of COPD and previous pneumonias w/ admission for previous ARDS with associated PNA 3 months ago, presented to ED with the chief complaint of cough x 4 days. Was seen by PCP and treated with azithromycin and steroids. Patient took medication w/o improvement. The patient was instructed to come to the emergency department by her PCP after the patient did not see improvement. In addition the patient states that she began experiencing L-sided chest pain that radiated into the L side of her back that began earlier today. The patient states the pain began in the retrosternal region. The patient did have relief with nitroglycerin. The patient arrived to the ED and was noted to be hypoxic; was placed on 2 L O2 via NC which kept her O2 saturation 97%. No previous hx of O2 use, but states that over the course the past few days she has been utilizing her fiance's oxygen at home. The patient denies any fevers, chills but does admit to dyspnea and cough". Cardiology C/s for CP, SOB, troponins. Patient is DNR/DNI/CCA. Has history of hypertension, COPD, nicotine abuse. Patient seen with family at bedside. She reports has experienced chronic shortness of breath at home since above-mentioned hospital stay in June 2017. She reports she was on the ventilator for 11 days during that time. Now utilizes oxygen at home as needed. She reports over the past few days recent nausea, vomiting and diarrhea and increased shortness of breath at rest and with exertion. Unfortunately, she continues to smoke about a half a pack per day , has smoked about a half a pack to one pack for about 20 years. She reports yesterday evening at rest developed midsternal to left-sided chest pain with arm numbness to her left arm. Complaint of chest pain today reproducible with palpation and deep inspiration. Patient reports her sugars of breath has slightly improved during hospital stay. She denies any known history of CAD. She reports family history of mother with CABG 3 in her 60s and father with MIs and stents in his 50s. He denies any history of hyperlipidemia or diabetes mellitus. Past Med Surg Social Fam HX - Past Medical History Attestation: Yes The following information was validated with the patient. Source: patient, old records reviewed, obtained from family Medical history: COPD, hypertension, other Psychiatric history: anxiety, depression, PTSD - Past Surgical History Surgical History: cholecystectomy, hysterectomy, other - Social History Smoking Status: Current some day smoker Smokeless Tobacco Status: No Alcohol use: none Drug use: none - Family History Mother Living Status: Still Living Hx Family Cardiac Disorders: Yes (cabg, chf, htn) Hx Family Respiratory Disorders: Yes (emphysema) Hx Family Endocrine Disorder: Yes (dm) Father Living Status: Still Living Hx Family Cardiac Disorders: Yes (heart disease) Medications and Allergies amLODIPine [Norvasc] 5 mg PO DAILY 07/05/17 [History] Albuterol Sulfate [Ventolin Hfa] 2 puff IH Q4-6H PRN #1 [email or web address] 09/06/17 [Rx] Trazodone HCl 100 mg PO HS 09/11/17 [History] hydrOXYzine HCl [Hydroxyzine HCl] 25 mg PO BID PRN 09/11/17 [History] Buspirone HCl [Buspar] 10 mg PO TID 10/15/17 [History] Duloxetine HCl [Cymbalta] 60 mg PO DAILY 10/15/17 [History] Gabapentin [Neurontin] 600 mg PO TID 10/15/17 [History] Melatonin/Pyridoxine HCl (B6) [Melatonin 3 mg Tablet] 3 mg PO HS 10/15/17 [ History] Omeprazole [PriLOSEC] 40 mg PO DAILY 10/15/17 [History] Oxycodone HCl/Acetaminophen [Percocet 10-325 mg Tablet] 1 tab PO TID PRN [History] Tizanidine HCl [Zanaflex] 4 mg PO TID 10/15/17 [History] 3 Allergy/AdvReac Type Severity Reaction Status Date / Time morphine Allergy Itching Verified 10/14/17 20:00 All Systems Review: A 10-system review of systems was performed and is negative for pertinent findings except as documented above in the HPI. - Constitutional Constitutional: fatigue, weakness - Cardiovascular Cardiovascular: as per HPI, chest pain at rest, dyspnea at rest, dyspnea on exertion, orthopnea Physical Examination Vital Signs, Last 4 Hours Temp Pulse Resp BP Pulse Ox 10/15/17 12:40 97.9 F 10/15/17 10:54 101 10/15/17 10:30 101 19 114/73 100 10/15/17 09:55 134 120/53 General: Conversant HEENT: Atraumatic, Normocephaly, Mucus Membranes Moist Neck: No JVD, Normal carotid pulses Cardiac: Reg Rate and Rhythm, Normal S1 and S2, No Murmur Lungs: Other (Respirations moderately labored at rest on nasal oxygen, diminished breath sounds throughout, conversational dyspnea noted, again patient reports slight improvement in respiratory status) Neuro: Alert and responsive, No focal deficits noted Abdomen: Soft, Non-Tender Skin: No rashes noted on visualized skin Musculoskeletal: No Chest Wall Tenderness, Other (Midsternal chest pain produced today with palpation and deep inspiration) Extremities: No Clubbing, No Cyanosis, No Edema, Normal Pulses Results 10/15/17 02:26 10/15/17 02:26 Lab Results Laboratory Tests 10/14/17 10/14/17 10/14/17 20:31 20:31 20:31 WBC 21.6 H Hgb Hct INR 1.1 D-Dimer 270 Troponin I 0.93 H* B-Natriuretic Peptide 10/14/17 10/15/17 10/15/17 20:31 02:26 02:26 WBC 20.5 H Hgb 10.5 L Hct 30.8 L INR D-Dimer Troponin I 0.78 H* B-Natriuretic Peptide 1125 H ITS Impressions Chest X-Ray 10/14/17 20:02 IMPRESSION: Bilateral infrahilar opacity suspicious for pneumonia, improved compared the prior study. D/ / Jie Noe MD / Jie Noe MD Interpreting Provider: Jie Noe MD Chest X-Ray 10/15/17 07:00 IMPRESSION: Unchanged right infrahilar and left perihilar opacities most likely representing pneumonia. Some underlying scarring or atelectasis could be present on the left. D/ / Cain Edge MD / Cain Edge MD Interpreting Provider: Cain Edge MD Active Medications Albuterol Sulfate (Proventil Neb) 2.5 mg IH Q2H PRN; Protocol PRN Reason: Shortness Of Breath/Wheezing Stop: 04/16/18 02:19 Albuterol/Ipratropium (Duoneb) 3 ml IH [id number] PEDRO Stop: 04/16/18 04:01 Last Admin: 10/15/17 11:05 Dose: 3 ml Gabapentin (Neurontin) 800 mg PO TID PEDRO Stop: 04/16/18 09:01 Last Admin: 10/15/17 10:28 Dose: 800 mg Heparin Sodium (Porcine) (Heparin) 4,000 unit IVP Q6HR PRN PRN Reason: SEE COMMENTS Stop: 04/15/18 21:40 Last Admin: 10/15/17 04:42 Dose: 4,000 unit Heparin Sodium (Porcine) (Heparin) 2,000 unit IVP Q6H PRN PRN Reason: SEE COMMENTS Stop: 04/15/18 21:40 Heparin Sodium/Dextrose (Heparin 25,000 Unit/500 Ml D5w) 25,000 unit in 500 mls @ 19.051 mls/hr IVC .Q24H PEDRO; 12 UNIT/KG/HR PRN Reason: Protocol Stop: 04/15/18 21:46 Last Titration: 10/15/17 11:56 Dose: 16.37 unit/kg/hr, 26 mls/hr Nitroglycerin (Nitroglycerin Premix 25 Mg/250 Ml) 25 mg in 250 mls @ 3 mls/hr IVC .Q24H PEDRO; 5 MCG/MIN PRN Reason: Protocol Stop: 04/15/18 21:46 Last Admin: 10/15/17 12:48 Dose: 100 mcg/min, 60 mls/hr Piperacillin Sod/Tazobactam Sod (Zosyn Premix 3.375 Gm/200 Ml) 3.375 gm in 200 mls @ 50 mls/hr IVPB Q8H PEDRO Stop: 04/16/18 10:01 Last Admin: 10/15/17 10:28 Dose: 50 mls/hr Vancomycin HCl 1,500 mg/ (Dextrose) 250 mls @ 166.67 mls/hr IVPB Q12H PEDRO Stop: 04/16/18 11:01 Last Admin: 10/15/17 10:31 Dose: 166.67 mls/hr Levofloxacin/Dextrose (Levaquin Premix 750mg/150 Ml) 750 mg in 150 mls @ 100 mls/hr IVPB Q24H PEDRO PRN Reason: Protocol Stop: 04/16/18 21:01 Nicotine (Nicoderm) 14 mg TD DAILY PEDRO PRN Reason: Protocol Stop: 04/15/18 20:46 Last Admin: 10/15/17 10:24 Dose: 14 mg Nitroglycerin (Nitroglycerin) 0.4 mg SL Q5MIN PRN PRN Reason: Chest Pain Stop: 04/15/18 20:25 Last Admin: 10/14/17 20:42 Dose: 0.4 mg Trazodone HCl (Trazodone) 100 mg PO HS PEDRO Stop: 04/16/18 02:16 Last Admin: 10/15/17 02:30 Dose: 100 mg - Imaging and Cardiology Echo: pending - EKG Interpretation EKG results cardiology: personally reviewed (Comparable to baseline), other ( Currently sinus tachycardia in the 120s) Consult Discharge Plan - Plan Referrals: Joey Rg DO [Primary Care Provider] - <Rama Kirkland - Last Filed: 10/15/17 17:19> Date of Encounter: 10/15/17 - Attending Attestation I examined this patient and my medical decision-making was reviewed with the GRADES 7 8 TUTOR. I agree with the documented findings, disposition and treatment plan as described. Impression: Worsening cough and SOB. History of ARDS, possible pneumonia recently. Treated as an outpatient with no improvement. Objective Data: VS reviewed - low grade temperature, tachycardic, on 2L NC Labs reviewed - elevated troponin 0.93, normal renal function, anemic, leukocytosis CT negative for PE - concern for pneumonitis, ARDS. Echo images personally reviewed Plan: 1. Elevated troponin - reviewed echo images demonstrating overall normal function but with regional variations. Recommend keeping patient nothing by mouth after midnight for potential heart catheterization. She is anticoagulated with heparin. Not sure if patient will be able to lay flat for procedure. We will reevaluate tomorrow. 2. SOB - appears to be multifactorial and largely related to her overall pulmonary status. Assessment and Plan Discussion w patient/family: The assessment and plan as outlined above was discussed with the patient and/or family members who expressed understanding and agreement. All questions were answered. Thank you for involving us in the care of your patient. Please call with any questions. History of Present Illness History of present illness: Ms. Bonilla is a 47 year old female All Systems Review: A 10-system review of systems was performed and is negative for pertinent findings except as documented above in the HPI. Physical Examination Vital Signs, Last 4 Hours Temp Pulse BP Pulse Ox 10/15/17 16:47 89 116/88 100 10/15/17 16:13 99.8 F H 10/15/17 15:37 106 123/93 96 10/15/17 14:30 105 107/70 10/15/17 13:28 110 121/76 Results 10/15/17 02:26 10/15/17 02:26 Lab Results 10/15/17 10/15/17 10/15/17 02:26 02:26 02:26 WBC 20.5 H Hgb 10.5 L Hct 30.8 L Plt Count 318 APTT Sodium 141 Potassium 3.8 D Chloride 114 H Carbon Dioxide 16 L BUN 10 Creatinine 0.72 Glucose 149 H Calcium 8.6 Troponin I 0.78 H* 10/15/17 10/15/17 04:05 10:52 WBC Hgb Hct Plt Count APTT 39.4 H D 63.7 H D Sodium Potassium Chloride Carbon Dioxide BUN Creatinine Glucose Calcium Troponin I
[2017-10-15 15:26] LABS: Amphetamine Screen,Urine Negative ng/mL (Cutoff=1000); Barbiturate Screen,Urine Negative ng/mL (Cutoff=200); Benzodiazepines Screen,Urine Negative ng/mL (Cutoff=200); Cannabinoid Screen,Urine Negative ng/mL (Cutoff = 50); Cocaine Screen,Urine Negative ng/mL (Cutoff= 300); Opiate Screen,Urine Negative ng/mL (Cutoff=300); Phencyclidine Screen,Urine Negative ng/mL (Cutoff=25)
[2017-10-15] MEDS: *HR* OxyCODONE/APAP 10/325 TABLET PO PRN (16:42)
--- NOTE | 2017-10-15 17:39 | Event Note ---
Date of Encounter: 10/15/17 Time of Encounter: 11:00 47-year-old female with hypoxic respiratory failure and sepsis secondary to bilateral infrahilar opacities consistent with pneumonia on chest x-ray; pulmonology following with recommendations for IV Zosyn/vancomycin Cardiology consulted for elevated troponins and suspects demand ischemia in the setting of acute on chronic respiratory failure versus non-STEMI; continue heparin drip
[2017-10-15 18:00] LABS: Bilirubin,Urine Negative (Negative); Blood,Urine Negative (Negative); Clarity,Urine Clear (Clear); Color,Urine Yellow (Yellow); Glucose,Urine (UA) Normal (Normal); Ketones,Urine Negative (Negative); Leukocyte Esterase,Urine Negative (Negative); Nitrite,Urine Negative (Negative); PH,Urine 6.5 pH Units (5.0-8.0); Protein,Urine Negative (Neg-Trace); Specific Gravity,Urine 1.013 (1.010-1.025); Urobilinogen,Urine Normal (Normal)
[2017-10-15] MEDS: Heparin 25,000 UNIT/500 ML D5W 25,000 UNIT/500 ML BAG IVC SCH (18:00)
[2017-10-15] MEDS: *HR* Heparin 5,000 UNIT/ML VIAL IVP PRN (18:26)
[2017-10-15 19:39] LABS: Adenovirus Not Detected (Not Detect); Bordetella Pertussis Not Detected (Not Detect); Chlamydophila pneumoniae Not Detected (Not Detect); Coronavirus 229E Not Detected (Not Detect); Coronavirus HKU1 Not Detected (Not Detect); Coronavirus NL63 Not Detected (Not Detect); Coronavirus OC43 Not Detected (Not Detect); Human Metapneumovirus Not Detected (Not Detect); Human Rhinovirus/Enterovirus Not Detected (Not Detect); Influenza A Subtype 2009 H1 Not Detected (Not Detect); Influenza A Untypeable Not Detected (Not Detect); Influenza B Not Detected (Not Detect); Mycoplasma pneumoniae Not Detected (Not Detect); Parainfluenza Virus 1 Not Detected (Not Detect); Parainfluenza Virus 2 Not Detected (Not Detect); Parainfluenza Virus 3 Not Detected (Not Detect); Parainfluenza Virus 4 Not Detected (Not Detect); Respiratory Syncytial Virus Not Detected (Not Detect)
[2017-10-15] MEDS ORDERED: Levofloxacin 750 MG/150 ML 750 MG/150 ML BAG IVPB SCH (21:00)
[2017-10-16] MEDS: *HR* OxyCODONE/APAP 10/325 TABLET PO PRN ×3 (00:18→17:55)
[2017-10-16] MEDS: Piperacillin/Tazobactam 3.375 GM/200 ML BAG IVPB SCH ×3 (02:27→17:56)
[2017-10-16] MEDS: Ipratropium/Albuterol Neb 3 ML IH SCH ×5 (04:07→20:09)
--- NOTE | 2017-10-16 07:07 | Pulmonology Progress Note ---
<CamiloFuad W - Last Filed: 10/16/17 10:30> Date of Encounter: 10/16/17 Objective PUL Vital signs: Last Vital Signs Temp 99.1 F 10/16/17 09:22 Pulse 84 10/16/17 07:45 Resp 16 10/16/17 08:09 BP 107/69 10/16/17 07:45 Pulse Ox 98 10/16/17 08:09 Results - Laboratory Findings CBC and BMP: 10/16/17 07:32 10/16/17 07:32 ABG ABG pH 7.41 pH Units (7.32-7.45) 10/15/17 10:48 ABG pCO2 29 mmHg (35-45) L 10/15/17 10:48 ABG pO2 73 mmHg (85-104) L 10/15/17 10:48 ABG O2 Saturation 95 % (95-98) 10/15/17 10:48 PT/INR, D-dimer PT 11.6 Seconds (9.4-12.1) 10/14/17 20:31 D-Dimer 270 ng/mLFEU (0-500) 10/14/17 20:31 Abnormal lab findings: Abnormal lab results RBC 2.94 M/mcL (3.82-4.97) L 10/16/17 07:32 Hgb 9.4 g/dL (11.5-15.4) L 10/16/17 07:32 Hct 29.3 % (35.3-44.9) L 10/16/17 07:32 RDW 17.1 % (11.5-14.5) H 10/16/17 07:32 Nucleated RBCs/100 WBC 0.2 /100 WBC (0) H 10/16/17 07:32 APTT 57.1 Seconds (26.0-36.0) H 10/16/17 06:32 ABG pCO2 29 mmHg (35-45) L 10/15/17 10:48 ABG pO2 73 mmHg (85-104) L 10/15/17 10:48 ABG HCO3 19 mEq/L (21-27) L 10/15/17 10:48 ABG Base Excess -5 mEq/L (-2 to 3) L 10/15/17 10:48 Potassium 3.4 mEq/L (3.5-5.1) L 10/16/17 07:32 Chloride 110 mEq/L (98-107) H 10/16/17 07:32 Carbon Dioxide 22 mEq/L (23-29) L 10/16/17 07:32 POC Glucose 150 (58-89) H 10/15/17 01:10 Troponin I 0.78 ng/mL (< 0.04) H* 10/15/17 02:26 B-Natriuretic Peptide 1125 pg/mL (Less than 100) H 10/14/17 20:31 Triglycerides 234 mg/dL (< 150) H 10/16/17 07:32 VLDL Cholesterol, Calc 47 mg/dL (< 31) H 10/16/17 07:32 HDL Cholesterol 31 mg/dL (40-59) L 10/16/17 07:32 - Microbiology Findings Microbiology Findings: Microbiology, Last 48 Hours 10/15/17 15:10 Legionella Antigen - Final Urine,Clean Catch - Clinical Findings Intake & Output: Intake & Output 10/15/17 10/16/17 10/16/17 23:59 07:59 15:59 Intake Total 1385 / 1385 734 / 734 Output Total 1800 / 1800 700 / 700 700 / 700 Balance -415 / -415 34 / 34 -700 / -700 Weight 88.3 kg Consult Discharge Plan - Plan Referrals: Joey Rg DO [Primary Care Provider] - - Attending Attestation I examined this patient and my medical decision-making was reviewed with the Resident Physician. I agree with the documented findings, disposition and treatment plan as described except to the extent set forth below. We independently had [id number] contact with the patient Patient seen and examined at bedside Labs, radiology, chart personally reviewed. Management was reviewed during multidisciplinary critical care rounds. SENIOR MARKETING MANAGER:Cont Narcotic for Chest pain. No focal deficits. Pulm: Acute hypoxic respiratory failure s/t likely cardiogenic pulmonary edema. Stable Oxygenation on Room now now. No aecopd stop steroids Cards: NSTEMI with Decomepsnated CHF. Cardiology following. Cont ACS protocol cont Nitro per Cardiology FEN-GI: NPO for now pending possibility of procedure Renal:NO Vazquez cont to monitor UOP ID: Possible PNA on ABx plan to stop tomorrow. Heme/Onc: H/H stable. cont to monitor while on heparin infusion. Endo: Glucose Monitored Integ/MSK: Skin Care per routine ICU Nursing Protocol to prevent ulcers. Lines: All lines examined without evidence of infection : Dispo: Stable for Step down unless nitro can be weaned off then to Med/Tele. CODE: Full. <Checo Dao - Last Filed: 10/16/17 11:50> Date of Encounter: 10/16/17 Time of Encounter: 07:07 Assessment and Plan (1) Acute respiratory failure with hypoxia Current Visit: No Status: Acute Patient was admitted for acute respiratory failure with hypoxia secondary to pneumonia with sepsis CTA ruled out pulmonary embolism but did show diffuse groundglass attenuation of the lung sparing the upper lung zones Patient was recently admitted 3 months ago for pneumonia and ARDS Patient is in no respiratory distress is tolerating nasal cannula 2 L this morning ABG yesterday demonstrates: PH 7.41, PCO2 29, PO2 73, HCO3 19 Plan: Continue respiratory support and O2 via NC (2L); wean O2 Duonebs scheduled Q4h Proventil every 2h when necessary We will continue IV antibiotics with vancomycin, Zosyn for one more day and then d/c pending clinical improvement Plan for step down pending cardiology disposition and discontinuation of nitro drip (2) NSTEMI (non-ST elevated myocardial infarction) Current Visit: Yes Status: Acute Presented with CP that was relieved by nitro and ASA given Troponins have been as follows: 0.93, 0.78 EKG: nonspecific ST changes as well as flipped T waves that are new from EKG performed on 09/10/2017. Echo performed on 10/15/17 demonstrates normal LV systolic function with mild LV diastolic dysfunction. No significant valvular dysfunction or pulmonary hypertension. The apex, apical inferior, apical septal, apical lateral and mid anterior septal childers were hypokinetic. Plan: Cardiology plenty for left heart cath today Continue heparin drip Continue nitro drip Nothing by mouth Ordered Lipid panel, LUKASZ, ANCA, RF and complement for any underlying hypercholesterolemia, inflammatory or vasculitis etiology given her age (3) Pneumonia Current Visit: Yes Status: Acute CXR demonstrated b/l infrahilar opacities consistent with PNA CTA ruled out pulmonary embolism but did show diffuse groundglass attenuation of the lung sparing the upper lung zones - Differential would include infectious etiology vs inflammatory vs ARDS vs cardiogenic - In the setting of elevated trop and BNP ad chest pain, cardiogenic is most likely Blood cultures preliminary negative 2 Influenza swab negative Legionella antigen negative Respiratory panel negative Sputum culture pending WBC trending down 20.5 to 8.1 Plan: IV Vanco and Zosyn; de-escalate tomorrow pending improvement D/c Levaquin Duonebs q4 Proventil q2 Incentive spirometer q10 times per hour awake Qualifiers: Pneumonia type: due to unspecified organism Laterality: unspecified laterality Lung location: lower lobe of lung Qualified Code(s): J18.1 - Lobar pneumonia, unspecified organism (4) Sepsis Current Visit: Yes Status: Acute CXR demonstrated b/l infrahilar opacities consistent with PNA On admission, patient had tachycardia and elevated lactic acid, leukocytosis Lactic acid trended down from 3.7-2.2 WBC trending down 20.5 to 8.1 Plan: Continue broad-spectrum antibiotics -Zosyn 3.375 gm IV Q8 -Vancomycin 1500 IV Q12 Qualifiers: Sepsis type: sepsis due to unspecified organism Qualified Code(s): A41.9 - Sepsis, unspecified organism (5) COPD (chronic obstructive pulmonary disease) Current Visit: Yes Status: Acute Known hx of COPD. Initially presented SOB; sx improved with 2L O2 via NC No wheezing heard on exam. Steroids have been held. Influenza PCR negative Plan: -Proventil 2.5 mg IH Q2 -Duoneb 3mL IH Q4 Qualifiers: COPD type: unspecified COPD Qualified Code(s): J44.9 - Chronic obstructive pulmonary disease, unspecified (6) DVT prophylaxis Current Visit: No Status: Acute Heparin drip Subjective Interval history: Patient is admitted for an STEMI with acute respiratory failure secondary to pneumonia with sepsis Cardiology plan left heart cath today Patient is resting comfortable this morning on nasal cannula 2L No concerns overnight She reports that her chest pain and shortness of breath and improved since yesterday Patient is down to 10 mics of nitroglycerin Objective PUL Vital signs: Last Vital Signs Temp 98.3 F 10/16/17 00:00 Pulse 80 10/16/17 06:00 Resp 16 10/16/17 06:00 BP 88/51 10/16/17 06:00 Pulse Ox 98 10/16/17 06:00 General appearance: no acute distress Eyes: nonicteric ENT: oropharynx moist Neck: supple Effort: normal Auscultation: bilateral: clear Cardiovascular: regular rate and rhythm Gastrointestinal: normoactive bowel sounds, non-distended Integumentary: normal Extremities: no cyanosis, no edema, no clubbing Musculoskeletal: no deformities normal mental status, non-focal exam, motor strength normal and symmetric mood appropriate, affect normal Results - Laboratory Findings CBC and BMP: 10/16/17 07:32 10/16/17 07:32 ABG ABG pH 7.41 pH Units (7.32-7.45) 10/15/17 10:48 ABG pCO2 29 mmHg (35-45) L 10/15/17 10:48 ABG pO2 73 mmHg (85-104) L 10/15/17 10:48 ABG O2 Saturation 95 % (95-98) 10/15/17 10:48 PT/INR, D-dimer PT 11.6 Seconds (9.4-12.1) 10/14/17 20:31 D-Dimer 270 ng/mLFEU (0-500) 10/14/17 20:31 Abnormal lab findings: Abnormal lab results WBC 20.5 K/mcL (4.3-11.1) H 10/15/17 02:26 RBC 3.14 M/mcL (3.82-4.97) L 10/15/17 02:26 Hgb 10.5 g/dL (11.5-15.4) L 10/15/17 02:26 Hct 30.8 % (35.3-44.9) L 10/15/17 02:26 MCH 33.4 pg (28.0-33.3) H 10/15/17 02:26 RDW 16.5 % (11.5-14.5) H 10/15/17 02:26 MPV 9.3 fL (9.4-12.4) L 10/15/17 02:26 Neutrophils # 18.8 K/mcL (1.6-8.9) H 10/15/17 02:26 APTT 61.8 Seconds (26.0-36.0) H 10/16/17 00:04 ABG pCO2 29 mmHg (35-45) L 10/15/17 10:48 ABG pO2 73 mmHg (85-104) L 10/15/17 10:48 ABG HCO3 19 mEq/L (21-27) L 10/15/17 10:48 ABG Base Excess -5 mEq/L (-2 to 3) L 10/15/17 10:48 Chloride 114 mEq/L (98-107) H 10/15/17 02:26 Carbon Dioxide 16 mEq/L (23-29) L 10/15/17 02:26 Glucose 149 mg/dL (70-105) H 10/15/17 02:26 POC Glucose 150 (58-89) H 10/15/17 01:10 Troponin I 0.78 ng/mL (< 0.04) H* 10/15/17 02:26 B-Natriuretic Peptide 1125 pg/mL (Less than 100) H 10/14/17 20:31 - Microbiology Findings Microbiology Findings: Microbiology, Last 48 Hours 10/15/17 15:10 Legionella Antigen - Final Urine,Clean Catch - Clinical Findings Intake & Output: Intake & Output 10/15/17 10/15/17 10/16/17 15:59 23:59 07:59 Intake Total 1050 / 1050 1385 / 1385 314 / 314 Output Total 2800 / 2800 1800 / 1800 700 / 700 Balance -1750 / -1750 -415 / -415 -386 / -386 Weight 88.3 kg - VTE Reasons for not Prescribing Prophylaxis: Not indicated-Anticoagulated or INR therapeutic
[2017-10-16] MEDS: Gabapentin 400 MG CAPSULE PO SCH (07:55)
[2017-10-16] MEDS: Aspirin 81 MG TAB.CHEW PO SCH (07:55)
[2017-10-16] MEDS: Nicotine 14 MG PATCH.TD24 TD SCH (08:05)
[2017-10-16] MEDS: *HR* Heparin 5,000 UNIT/ML VIAL IVP PRN (08:06)
[2017-10-16 08:12] LABS: BUN/Creatinine Ratio 10 (6-26); Blood Urea Nitrogen 9 mg/dL (6-20); Calcium 8.7 mg/dL (8.6-10.3); Carbon Dioxide 22 mEq/L (23-29); Chloride 110 mEq/L (98-107); Glucose 93 mg/dL (70-105); Osmolality,Calculated 288 (280-300); Potassium 3.4 mEq/L (3.5-5.1); Sodium 140 mEq/L (136-145); eGFR For African Americans > 60 (> 60); eGFR For Non-African Americans > 60 (> 60)
[2017-10-16 08:33] LABS: Basophils % 0.4 %; Eosinophils % 0.2 %; Hematocrit 29.3 % (35.3-44.9); Hemoglobin 9.4 g/dL (11.5-15.4); Immature Granulocytes % 1.4 % (0-4); Lymphocytes # 2.7 K/mcL (0.6-4.6); Lymphocytes % 32.8 %; Mean Corpuscular HGB Conc 32.1 g/dL (31.6-35.5); Mean Corpuscular Volume 99.7 fL (83.0-100.0); Monocytes # 0.6 K/mcL (0.0-1.3); Monocytes % 6.8 %; Neutrophils # 4.7 K/mcL (1.6-8.9); Nucleated Red Blood Cells 0.2 /100 WBC (0); Platelet Count 239 K/mcL (140-400); Red Blood Count 2.94 M/mcL (3.82-4.97); Red Cell Distribution Width 17.1 % (11.5-14.5); Segmented Neutrophils % 58.4 %
[2017-10-16 09:02] LABS: Chol/HDL Ratio 3.7 (0-4.9); Cholesterol 115 mg/dL (< 200); HDL Cholesterol 31 mg/dL (40-59); LDL Cholesterol,Calculated 37 mg/dL (0-99); Triglycerides 234 mg/dL (< 150)
[2017-10-16] MEDS ORDERED: *HR* Heparin 5,000 UNIT/ML VIAL IVP PRN ×2 (11:07)
[2017-10-16] MEDS ORDERED: Heparin 25,000 UNIT/500 ML D5W 25,000 UNIT/500 ML BAG IVC SCH (11:15)
[2017-10-16] MEDS: Vancomycin 1,000 MG in D5% in Water 250 ML IVPB SCH ×2 (11:24→22:32)
--- NOTE | 2017-10-16 12:25 | Event Note ---
Date of Encounter: 10/16/17 Time of Encounter: 12:30 - Cardiology Event Note Patient seen this morning with improvement in her shortness of breath and able to tolerate laying flat. She reports improvement with chest pain, however still requiring nitroglycerin drip. Discussed and reviewed with Dr. Ya and Dr. Cardenas. Chest x-ray completed per Dr. Cardenas's request. Results: FINDINGS: Slightly improved pulmonary expansion with decreased basilar atelectasis. Persistent left greater than right perihilar and basilar or patchy opacities. No pneumothorax or large effusion. Stable cardiomediastinal contours. Cervical fusion hardware noted. XR/XR chest 1V portable IMPRESSION: Persistence bilateral airspace disease with decreased atelectasis. Discussed with patient and family, agreeable to proceed with catheterization. All questions answered. Further recs after catheterization. Discussed with primary service.
[2017-10-16] MEDS ORDERED: Aminoglycoside Consult 1 EACH MC ONE (13:28)
--- NOTE | 2017-10-16 14:09 | Pre-Sedation Evaluation ---
Pre-sedation evaluation - Pre-sedation checklist Date of procedure: 10/16/17 Procedure: LHC Recent Vitals: Last Vital Signs Temp 99.1 F 10/16/17 09:22 Pulse 80 10/16/17 11:42 Resp 16 10/16/17 13:24 BP 106/66 10/16/17 11:42 Pulse Ox 99 10/16/17 13:24 ASA Classification *see protocol: CLASS II-Mild systemic disease Plan of Care: Pt appropriate candidate for procedure/moderate/conscious sedation
[2017-10-16] MEDS: Gabapentin 300 MG CAPSULE PO SCH ×2 (15:19→20:23)
[2017-10-16] MEDS ORDERED: Nitroglycerin 1,000 MCG/10 ML VIAL IV ONE (16:02)
[2017-10-16] MEDS ORDERED: Heparin 1,000 UNITS/500 mL 500 ML ONE (16:02)
[2017-10-16] MEDS ORDERED: 0.9 % Sodium Chloride 1,000 ML ONE ×2 (16:02→16:14)
[2017-10-16] MEDS ORDERED: *HR* Heparin 10,000 UNIT/10 ML VIAL ONE (16:02)
[2017-10-16] MEDS ORDERED: *HR* Midazolam HCl 2 MG/2 ML VIAL ONE (16:42)
[2017-10-16] MEDS ORDERED: Tirofiban 12.5 MG/250ML 12.5 MG/250 ML BAG ONE (17:08)
[2017-10-16] MEDS ORDERED: Tirofiban 12.5 MG/250ML 12.5 MG/250 ML BAG IVC SCH (17:30)
[2017-10-16] MEDS ORDERED: *HR* Ticagrelor 90 MG TABLET ONE (17:32)
[2017-10-16] MEDS ORDERED: Aspirin 81 MG TAB.CHEW ONE (17:32)
--- NOTE | 2017-10-16 17:36 | Invasive Diagnostic Lab Proc ---
Name: Judy Bonilla Date of Study: 10/16/2017 Date: 1970 Ht: 66.0in Medical Record#: [id number] Age: 47 Wt: 194.45lb Gender: Female BSA: 1.98 Order #: [id number] BMI: 31.4 Physicians Procedure Physician: Jennifer Cardenas MD Referring MD: Referring MD: Staff Name Position Time In Ingrid Horton RT Monitor 04:44 PM Tammy Norwood RT (R) Scrub 04:44 PM Adrienne Kennedy RN Damage Adjuster 04:44 PM Indications Indication Non-Stemi Procedures Performed Procedure L HRT ARTERY/VENTRICLE ANGIO PRQ CARD ARIANA STENT W/ANGIO 1 VSL Pre-Procedure Checklist Informed consent is complete signed and on chart. H&P is on chart. ID band is on and ID verified with patient. Patient NPO for procedure The procedure was described for the patient and questions were answered. Blood Pressure: 106/66 ECG is on chart. Rhythm: NSR Plan of Care Patient will tolerate the procedure without complications. Adequate level of comfort will be maintained. Hemodynamics will remain stable Patient will recover from procedure without complications. Respiratory function will be maintained. Cardiac rhythm will remain stable. Patient temperature will be maintained. Patient and/or family have verbalized understanding of the procedure. Patient Education Chief Complaint/Reason for Test: Cardiac Cath Developmental Category: Adult (18-64 years) Developmentally Appropriate for Age: Yes Learning Barriers: None Education Needs: Procedure Education Method: Verbal Information Taught: Cardiac Cath Educational Evaluation: Able to repeat information Intravenous Access Time IV Size Location DC'd Fluid/Drip Rate Units RN 20g 1 1/4" Patent On Arrival Lt Arm 0.9NaCl Adrienne Kennedy RN 20g 1 1/4" Patent On Arrival Rt Arm Allergies morphine Vital Signs Time BP (mmHg) HR (bpm) O2 Sat. RR (bpm) LOC 04:34 PM 106 / 66 74 99 % 16 5 = Fully awake and oriented or at pre-proc level 04:47 PM / % 5 = Fully awake and oriented or at pre-proc level 04:47 PM / % 4 = Oriented but drowsy 05:02 PM / % 4 = Oriented but drowsy 04:44 PM 134 / 92 125 90 % 19 04:49 PM 119 / 81 83 99 % 21 04:54 PM 130 / 90 83 100 % 13 04:59 PM 124 / 83 82 100 % 16 05:04 PM 138 / 96 89 98 % 16 05:09 PM 125 / 80 81 98 % 17 05:14 PM 134 / 96 90 98 % 14 05:19 PM 129 / 84 81 99 % 28 05:24 PM 120 / 76 86 99 % 11 Procedural Medications Time Medication Dose Units Method Given By 04:46 PM Oxygen 2 L/min nasal cannula Adrienne Kennedy RN 04:46 PM Versed 1 mg Intravenous Adrienne Kennedy RN 04:50 PM Versed 0.5 mg Intravenous Adrienne Kennedy RN 04:51 PM Lidocaine 2% 20 ml Subcutaneous Jennifer Cardenas MD 04:55 PM Versed 0.5 mg Intravenous Adrienne Kennedy RN 05:06 PM Heparin 4000 units Intravenous Nigel Diaz RN 05:12 PM Aggrastat Bolus: 46 ml Intravenous Nigel Diaz RN 05:12 PM Aggrastat 12.5mg/250ml 16.5 ml Intravenous Nigel Diaz RN 05:19 PM Nitroglycerin 100 mcg Intravenous Fernanda Cardenas MD 05:19 PM Nitroglycerin 100 mcg Intracoronary Fernanda Cardenas MD 05:24 PM Aspirin (325mg) 325 mg Orally Nigel Diaz RN 05:25 PM Brilinta 180 mg Orally Nigel Diaz RN ASA Classification: CLASS II- Mild systemic disease (i.e. well-controlled diabetes, hypertension, asthma, cigarette smoking) Caesar Score Preprocedure Postprocedure Activity 2- Moves 4 extremities sustained head lift Activity 2- Moves 4 extremities sustained head lift Circulation 2- SBP +/= 20 points of pre-anesthetic level Circulation 2- SBP +/= 20 points of pre-anesthetic level Consciousness 2- Awake and alert oriented x 3 Consciousness 2- Awake and alert oriented x 3 O2 Saturation 2- Able to maintain O2 satruation of 92% on room air O2 Saturation 2- Able to maintain O2 satruation of 92% on room air Respiratory 2- Able to deep breathe and cough well Respiratory 2- Able to deep breathe and cough well Total Score 10 Total Score 10 Contrast Agent: Isovue Diagnostic Contrast: 164 ml Total Contrast: 164 ml Fluoro Dose: 467 mGy Activated Clotting Time Time Seconds to Clot 05:06 PM 193 Procedure Log Time Note Enter By 04:43 PM CathStat 04:43 PM Vitals capture started with the following parameters, Patient=Adult, Interval=5 min, Initial Bykfquod=013 mmHg, Deflation Rate=5 mmHg, Cuff placed on Left Arm 04:44 PM CU=788 bpm, XYCE=334/92 mmhg, SpO2=90 %, Resp=19 B/min 04:44 PM Pt arrived to labor economics teacher 1 at 16:44 dspell 04:44 PM Ingrid Horton RT Position: Monitor Time in: 16:44 dspell 04:44 PM Tammy Norwood RT (R) Position: Scrub Time in: 16:44 dspell 04:44 PM Adrienne Kennedy RN Position: bend up Time in: 16:44 ell 04:45 PM Patient charges- Angio tray pack, Navilyst 3mm J, Pulse Oximetry and ACIST tubing and transducer dspell 04:45 PM Case Delayed No dspell 04:45 PM Hair removed from procedure site in procedure lab using clippers. Bilateral groin prepped with Chloraprep by Adrienne Kennedy RN, safety strap applied then patient was draped. Skin intact. ell 04:45 PM Physician arrived 16:45 dspell 04:45 PM ASA Class CLASS II- Mild systemic disease (i.e. well-controlled diabetes, hypertension, asthma, cigarette smoking) dspell 04:45 PM Meet and greet completed 04:45 PM Sign in performed according to hospital policy. :46 PM Time: 16:46 Oxygen on at 2 L/min per nasal cannula by Adrienne Kennedy RN :46 PM Time: 16:46 Versed 1 mg Intravenous Given by Adrienne Kennedy RN :46 PM Procedure start 16:46 ell:47 PM Time: 16:47 Patient comfortable and pain free: Yes :47 PM Time: 16:47LOC: 5 = Fully awake and oriented or at pre-proc level ell:47 PM Clinical Presentation: Unstable angina dspell 04:49 PM HR=83 bpm, JJPA=822/81 mmhg, SpO2=99 %, Resp=21 B/min 04:50 PM Time: 16:50 Versed .5 mg Intravenous Given by Adrienne Kennedy RN 04:51 PM Time: 16:51 20 ml Lidocaine 2% to right groin Subcutaneous Given by Jennifer Cardenas MD dspell 04:54 PM HR=83 bpm, VONP=291/90 mmhg, LrO2=525 %, Resp=13 B/min 04:54 PM Access obtained by percutaneous puncture. 5Fr 10cm Terumo [place] sheath placed in right Femoral artery. [id number] dspellman 04:54 PM Bolus angiogram of right Femoral complete: 3 ml contrast dspellman 04:54 PM Access obtained by percutaneous puncture. 6Fr 10cm Terumo [place] sheath placed in right Femoral artery. [id number] dspellman 04:54 PM 5Fr FR 4 catheter inserted over the wire DN dspell 04:55 PM Time: 16:55 Versed .5 mg Intravenous Given by Adrienne Kennedy RN [email or web address] 04:56 PM wire removed dspellman 04:56 PM Reference ECG taken 04:56 PM Reference ECG taken 04:56 PM Pressure channel 3 zeroed. 04:57 PM RCA angiography performed in multiple views. dspellman 04:57 PM Pressure channel 1 zeroed. 04:57 PM Catheter removed dspellman 04:57 PM 5Fr FL 4 catheter inserted over the wire DN dspellman 04:57 PM wire removed dspellman 04:58 PM LCA angiography performed in multiple views. dspellman 04:59 PM HR=82 bpm, YLQM=602/83 mmhg, RgT1=626.0 %, Resp=16 B/min 04:59 PM Recorded Pressure: Ao, HR=81, Condition=Condition 1 (Aorta) Ao 104/79/90 05:01 PM Catheter removed dspell 05:01 PM 5Fr Pigtail catheter inserted over the wire DNC dspellman 05:01 PM wire removed dspellman 05:01 PM Catheter selectively placed in left ventricle dspellman 05:01 PM Recorded Pressure: LV, HR=82, Condition=Condition 1 (Left Ventricle) LV 126/12/19 05:02 PM Recorded Pressure: LV, Ao, HR=79, Condition=Condition 1 (Left Ventricle) LV 121/10/18, (Aorta) Ao 123/77/97 05:02 PM Time: 16:47LOC: 4 = Oriented but drowsy dspellman 05:02 PM Time: 16:47 Patient comfortable and pain free: Yes dspell 05:02 PM Catheter removed dspell 05:03 PM Coronary Dominance: right dspellman 05:03 PM Lesion found in Mid LAD. Pre Stenosis: 75 Pre LAKHWINDER Flow: dspell 05:04 PM HR=89 bpm, XRHH=726/96 mmhg, SpO2=98.0 %, Resp=16 B/min 05:04 PM Left Main Coronary Artery with 0% stenosis dspellman 05:04 PM Proximal Left Anterior Descending Coronary Artery with 0% stenosis. If graft is supplying this territory, 0 % stenosis. dspellman 05:04 PM Mid/Distal Left Anterior Descending Coronary Artery and diagonal branches with 75% stenosis. If graft is supplying this area, 0 % stenosis dspellman 05:04 PM Circumflex, Obtuse Marginal, Left Posterior Descending, and Left Posterolateral Coronary Arteries with 0 % stenosis. If graft is supplying this area, 0 % stenosis dspellman 05:04 PM Right Coronary, Right Posterior Descending Arteries with Right Posterolateral and Acute Marginal branches with 0 % stenosis. If graft is supplying this area, 0 % stenosis dspellman 05:04 PM Ramus with 0% stenosis. If graft is supplying this area, 0 % stenosis dspellman 05:05 PM 6Fr XB LAD 3.5 [place] Bright-Tip guide catheter was used to cannulate the PCI vessel successfully. reused? No dspell 05:05 PM .014 [employer] [place] 190cm guide wire across target lesion- successful. reused? No dspell 05:05 PM Inflation device was opened. 05:06 PM At 17:06 the ACT was 130 seconds. :06 PM Time: 17:06 Heparin 4000 units Intravenous Given by Nigel Diaz RN [facility] 05:09 PM HR=81 bpm, JSMR=605/80 mmhg, SpO2=98.0 %, Resp=17 B/min 05:10 PM 2.0 mm x 8 mm Emerge Monorail balloon across target lesion- successful. reused? No :11 PM Balloon inflated @ 8 abby for 18 seconds 05:12 PM Time: 17:12 Aggrastat Bolus: 46 ml Intravenous Given by Nigel Diaz RN [facility]:12 PM Time: 17:12 Aggrastat 12.5mg/250ml 16.5 ml Intravenous Given by Nigel Diaz RN [employer] pump dsp 05:13 PM Balloon catheter removed intact. 05:14 PM HR=90 bpm, CDYE=850/96 mmhg, SpO2=98.0 %, Resp=14 B/min 05:14 PM 2.5mm x 16mm Synergy drug-eluting stent across target lesion- successful Lot #[id number] dspell 05:16 PM Stent deployed @ 9 abby for 10 seconds dspell 05:16 PM Stent balloon reinflated @ 11 abby for 6 seconds dspell 05:16 PM Stent balloon reinflated @ 16 abby for 9 seconds dsp 05:17 PM Time: 17:02LOC: 4 = Oriented but drowsy dsp 05:18 PM Stent balloon reinflated @ 9 abby for 9 seconds Diag dsp 05:18 PM Stent delivery system removed intact. 05:18 PM wire removed 05:19 PM HR=81 bpm, QIVW=849/84 mmhg, SpO2=99.0 %, Resp=28 B/min 05:19 PM Time: 17:19 Nitroglycerin 100 mcg Intracoronary Given by Jennifer Cardenas MD 05:20 PM Time: 17:19 Nitroglycerin 100 mcg Intracoronary Given by Jennifer Cardenas MD 05:20 PM wire and catheter removed 05:21 PM Procedure completed at 17:21 05:21 PM Did you address LAKHWINDER flow and Dominance? Yes 05:22 PM Sign out completed: Radiation Dose 466.98 mGy Fluoro Time: 6.6 Isovue 370 - 200ml contrast 164 ml given by Jennifer Cardenas MD. Complications: NoneCardiac Rehab Consult needed: YesConfirmed administered medications: Yes 05:22 PM Isovue 370 - 200ml,1 Bottle(s) used. 05:22 PM Arterial sheath pulled, Angio-seal closure device used and was Successful [id number] S/N. 05:22 PM Estimated Blood Loss: minimal dsp 05:23 PM Post ECG NSR dsp 05:23 PM Post Blood Pressure 129/84 dspell 05:23 PM 17:23 Post Pulses Bilateral DP & PT 2+ dsp 05:23 PM Information taught Cardiac Cath, Angioseal, and PCI 05:23 PM Education needs Procedure, Plan of Care, and Responsibilities of Patient in Care :23 PM Learning barriers :None 05:23 PM Education Methods Verbal 05:24 PM Education evaluation Able to repeat information 05:24 PM HR=86 bpm, DCTY=087/76 mmhg, SpO2=99.0 %, Resp=11 B/min 05:24 PM Site status No bleeding/hematoma - Rt Groin as reported by Tammy Norwood RT (R) at 17:24 05:24 PM Opsite applied 05:25 PM Time: 17:24 Aspirin (325mg) 325 mg Orally Given by Nigel Diaz RN 05:25 PM Time: 17:25 Brilinta 180 mg Orally Given by Nigel Diaz RN 05:25 PM Plavix, Effient or Brilinta given Yes 05:25 PM Delay to floor No 05:26 PM Patient out of room: 17:25 05:26 PM no family at this time 05:26 PM Complications: None 05:26 PM Fluoro Time: 6.6 :26 PM Isovue 370 - 200ml contrast 164 ml given by Jennifer Cardenas MD. 05:26 PM Radiation Dose 466.98 mGy 05:27 PM Report given to Sera SAHNI Pt taken to ICU Room #11. 17:27 [facility] Complications Complication None None Hemodynamics Pressures Site Systolic/A Wave Diastolic/V Wave Mean AO 104 79 90 LV 126 12 19 LV 121 10 18 AO 123 77 97 Post Procedure Information Blood Pressure: 129/84 mmHg Rhythm: NSR Post procedural instructions were given Closure Device Time Device Success/Fail 10/16/2017 5:27:00 PM Angio-Seal VIP Successful Site Checks Time Location Status Staff Sheath In? Note 05:24 PM Rt Groin No bleeding/hematoma Tammy Norwood RT (R) Pulses Time Site Pre-Procedure Post-Procedure Note 10/16/2017 4:33:00 PM Bilateral DP & PT 2+ 5:23:00 PM Bilateral DP & PT 2+ Updated by Tammy Norwood RT (R) on 10/16/2017 5:30:59 PM RT Herson electronically signed on 10/16/2017 5:31:41 PM with status of Final
[2017-10-16] MEDS: *HR* Ticagrelor 90 MG TABLET PO SCH (20:22)
[2017-10-16] MEDS: traZODone 50 MG TABLET PO SCH (20:23)
[2017-10-16] MEDS ORDERED: *HR* HYDROmorphone (PF) 1 MG/ML SYRINGE IVP PRN (21:13)
[2017-10-16] MEDS ORDERED: D5% in Water 250 ML ONE (22:39)
[2017-10-17] MEDS: Ipratropium/Albuterol Neb 3 ML IH SCH ×7 (00:23→23:15)
[2017-10-17] MEDS: Piperacillin/Tazobactam 3.375 GM/200 ML BAG IVPB SCH (02:34)
[2017-10-17] MEDS: *HR* OxyCODONE/APAP 10/325 TABLET PO PRN ×3 (04:48→20:19)
[2017-10-17 05:24] LABS: Hematocrit 29.9 % (35.3-44.9); Hemoglobin 9.6 g/dL (11.5-15.4)
[2017-10-17 05:42] LABS: BUN/Creatinine Ratio 12 (6-26); Blood Urea Nitrogen 11 mg/dL (6-20); eGFR For African Americans > 60 (> 60); eGFR For Non-African Americans > 60 (> 60)
--- NOTE | 2017-10-17 07:43 | Pulmonology Progress Note ---
<CamiloFuad W - Last Filed: 10/17/17 09:30> Date of Encounter: 10/17/17 Objective PUL Vital signs: Last Vital Signs Temp 99.1 F 10/17/17 08:22 Pulse 97 10/17/17 08:00 Resp 22 10/17/17 08:21 BP 99/79 10/17/17 08:00 Pulse Ox 97 10/17/17 08:21 Results - Laboratory Findings CBC and BMP: 10/17/17 07:56 10/17/17 07:56 ABG ABG pH 7.41 pH Units (7.32-7.45) 10/15/17 10:48 ABG pCO2 29 mmHg (35-45) L 10/15/17 10:48 ABG pO2 73 mmHg (85-104) L 10/15/17 10:48 ABG O2 Saturation 95 % (95-98) 10/15/17 10:48 PT/INR, D-dimer PT 11.6 Seconds (9.4-12.1) 10/14/17 20:31 D-Dimer 270 ng/mLFEU (0-500) 10/14/17 20:31 Abnormal lab findings: Abnormal lab results RBC 3.19 M/mcL (3.82-4.97) L 10/17/17 07:56 Hgb 10.3 g/dL (11.5-15.4) L 10/17/17 07:56 Hct 32.2 % (35.3-44.9) L 10/17/17 07:56 MCV 100.9 fL (83.0-100.0) H 10/17/17 07:56 RDW 16.9 % (11.5-14.5) H 10/17/17 07:56 Nucleated RBCs/100 WBC 0.2 /100 WBC (0) H 10/17/17 07:56 APTT 89.5 Seconds (26.0-36.0) H D 10/16/17 14:34 ABG pCO2 29 mmHg (35-45) L 10/15/17 10:48 ABG pO2 73 mmHg (85-104) L 10/15/17 10:48 ABG HCO3 19 mEq/L (21-27) L 10/15/17 10:48 ABG Base Excess -5 mEq/L (-2 to 3) L 10/15/17 10:48 Chloride 112 mEq/L (98-107) H 10/17/17 07:56 Carbon Dioxide 22 mEq/L (23-29) L 10/17/17 07:56 POC Glucose 150 (58-89) H 10/15/17 01:10 Calcium 8.2 mg/dL (8.6-10.3) L 10/17/17 07:56 Magnesium 1.4 mg/dL (1.6-2.6) L 10/17/17 07:56 Troponin I 0.28 ng/mL (< 0.04) H* 10/17/17 04:56 B-Natriuretic Peptide 1125 pg/mL (Less than 100) H 10/14/17 20:31 Triglycerides 234 mg/dL (< 150) H 10/16/17 07:32 VLDL Cholesterol, Calc 47 mg/dL (< 31) H 10/16/17 07:32 HDL Cholesterol 31 mg/dL (40-59) L 10/16/17 07:32 - Microbiology Findings Microbiology Findings: Microbiology, Last 48 Hours 10/15/17 15:10 Legionella Antigen - Final Urine,Clean Catch - Clinical Findings Intake & Output: Intake & Output 10/16/17 10/17/17 10/17/17 23:59 07:59 15:59 Intake Total 514 / 514 200 / 200 250 / 250 Output Total 1000 / 1000 400 / 400 Balance -486 / -486 -200 / -200 250 / 250 Consult Discharge Plan - Plan Referrals: Joey Rg DO [Primary Care Provider] - - Attending Attestation I examined this patient and my medical decision-making was reviewed with the Resident Physician. I agree with the documented findings, disposition and treatment plan as described except to the extent set forth below. We independently had [id number] contact with the patient Patient seen and examined at bedside Labs, radiology, chart personally reviewed. Management was reviewed during multidisciplinary critical care rounds. UROLOGIST PHYSICIAN: Awake and alert cont to monitor Pulm: Acute Hypoxic Respiratory failure s/t Cardiogenic pulmonary edema improving. Weaned off of O2. COPD and pulmonary infiltrates will need Pulmonary F/u in 2-4 weeks at discharge. Cont GIOVANNI for now. Cards: NSTEMI with LAD lesion s/p PCI now on DAPT BB and Statin. Cardiology following FEN-GI: ADAT Renal: No DRU cont to monitor UOP ID: Stop ABx Heme/Onc: DVT prophylaxis per routine Endo: Glucose Monitored Integ/MSK: Skin Care per routine ICU Nursing Protocol to prevent ulcers. Lines: All lines examined without evidence of infection : Dispo: Stable for med/tele for ongoing care CODE: Full. <Checo Dao - Last Filed: 10/17/17 10:46> Date of Encounter: 10/17/17 Time of Encounter: 07:41 Assessment and Plan (1) Acute respiratory failure with hypoxia Current Visit: No Status: Acute Patient was admitted for acute respiratory failure with hypoxia secondary to possible infectious etiology versus cardiogenic edema CTA ruled out pulmonary embolism but did show diffuse groundglass attenuation of the lung sparing the upper lung zones Patient was recently admitted 3 months ago for pneumonia and ARDS Significantly improving. In the setting of an NSTEMI with stent placed yesterday, hypoxia and CT findings are more consistent with cardiogenic edema. Patient is in no respiratory distress is tolerating nasal cannula 2 L this morning Plan: Continue respiratory support and O2 via NC (2L); wean O2 Duonebs scheduled Q4h Proventil every 2h when necessary D/c IV antibiotics Transfer order to telemetry placed today. Patient will require a repeat CT exam in 4-6 weeks to determine resolution. (2) NSTEMI (non-ST elevated myocardial infarction) Current Visit: Yes Status: Acute Presented with CP that was relieved by nitro and ASA given Troponins have been as follows: 0.93, 0.78, 0.28 EKG: nonspecific ST changes as well as flipped T waves that are new from EKG performed on 09/10/2017. ECHO: performed on 10/15/17 demonstrates normal LV systolic function with mild LV diastolic dysfunction. No significant valvular dysfunction or pulmonary hypertension. The apex, apical inferior, apical septal, apical lateral and mid anterior septal childers were hypokinetic. Ordered Lipid panel, LUKASZ, ANCA, RF and complement for any underlying hypercholesterolemia, inflammatory or vasculitis etiology given her age LHC yesterday with ARIANA to mid LAD Plan: Cardiac diet ASA & Brillinta for 12 months SL Nitro Statin BB Encourage cessation of tobacco abuse Will need cardiac rehab and follow up per cardiology team (3) Pneumonia Current Visit: Yes Status: Suspected CXR demonstrated b/l infrahilar opacities suspicious for PNA CTA ruled out pulmonary embolism but did show diffuse groundglass attenuation of the lung sparing the upper lung zones Blood cultures preliminary negative 2 Influenza swab negative Legionella antigen negative Respiratory panel negative Sputum culture pending WBC trended down 20.5 to 8.1 Plan: Discontinuing antibiotics; In the setting of an hypoxia and NSTEMI with ARIANA yesterday, the CT findings are more consistent with cardiogenic edema. Duonebs q4 Proventil q2 Incentive spirometer q10 times per hour awake Qualifiers: Pneumonia type: due to unspecified organism Laterality: unspecified laterality Lung location: lower lobe of lung Qualified Code(s): J18.1 - Lobar pneumonia, unspecified organism (4) Sepsis Current Visit: Yes Status: Acute On admission, patient had tachycardia and elevated lactic acid, leukocytosis Lactic acid trended down from 3.7-2.2 WBC trending down 20.5 to 8.1 Resolving and d/c antibiotic regimen Qualifiers: Sepsis type: sepsis due to unspecified organism Qualified Code(s): A41.9 - Sepsis, unspecified organism (5) COPD (chronic obstructive pulmonary disease) Current Visit: Yes Status: Acute Known hx of COPD. Initially presented SOB; sx improved with 2L O2 via NC No wheezing heard on exam. Steroids have been held. Influenza PCR negative Continue bronchodilators at this time. From a pulmonary perspective, patient will require additional medication such as LAMA or LAMA/LABA combo in 3-4 weeks due to recent cardiac events. Encouraged smoking cessation and patient agrees to plan. We will continue to monitor patient closely but very likely that she will not require further nebulizer treatments on discharge. Qualifiers: COPD type: unspecified COPD Qualified Code(s): J44.9 - Chronic obstructive pulmonary disease, unspecified (6) DVT prophylaxis Current Visit: No Status: Acute EPCDs Subjective Interval history: Patient is admitted for an NSTEMI with acute respiratory failure with sepsis POD#1 s/p LHC with ARIANA to mid LAD Patient is resting comfortable this morning on nasal cannula 2L No concerns overnight She reports that her chest pain and shortness of breath are diminished Objective PUL Vital signs: Last Vital Signs Temp 99.8 F H 10/17/17 04:00 Pulse 93 10/17/17 06:00 Resp 20 10/17/17 06:00 BP 112/73 10/17/17 06:00 Pulse Ox 98 10/17/17 06:00 General appearance: no acute distress Eyes: nonicteric ENT: oropharynx moist Neck: supple Effort: normal Auscultation: left: other (left lower crackles) Cardiovascular: regular rate and rhythm Gastrointestinal: normoactive bowel sounds, non-distended Integumentary: normal Extremities: no cyanosis, no edema, no clubbing Musculoskeletal: no deformities, ROM normal normal mental status, non-focal exam mood appropriate, affect normal Results - Laboratory Findings CBC and BMP: 10/17/17 07:56 10/17/17 07:56 ABG ABG pH 7.41 pH Units (7.32-7.45) 10/15/17 10:48 ABG pCO2 29 mmHg (35-45) L 10/15/17 10:48 ABG pO2 73 mmHg (85-104) L 10/15/17 10:48 ABG O2 Saturation 95 % (95-98) 10/15/17 10:48 PT/INR, D-dimer PT 11.6 Seconds (9.4-12.1) 10/14/17 20:31 D-Dimer 270 ng/mLFEU (0-500) 10/14/17 20:31 Abnormal lab findings: Abnormal lab results RBC 2.94 M/mcL (3.82-4.97) L 10/16/17 07:32 Hgb 9.6 g/dL (11.5-15.4) L 10/17/17 04:56 Hct 29.9 % (35.3-44.9) L 10/17/17 04:56 RDW 17.1 % (11.5-14.5) H 10/16/17 07:32 Nucleated RBCs/100 WBC 0.2 /100 WBC (0) H 10/16/17 07:32 APTT 89.5 Seconds (26.0-36.0) H D 10/16/17 14:34 ABG pCO2 29 mmHg (35-45) L 10/15/17 10:48 ABG pO2 73 mmHg (85-104) L 10/15/17 10:48 ABG HCO3 19 mEq/L (21-27) L 10/15/17 10:48 ABG Base Excess -5 mEq/L (-2 to 3) L 10/15/17 10:48 Potassium 3.4 mEq/L (3.5-5.1) L 10/16/17 07:32 Chloride 110 mEq/L (98-107) H 10/16/17 07:32 Carbon Dioxide 22 mEq/L (23-29) L 10/16/17 07:32 POC Glucose 150 (58-89) H 10/15/17 01:10 Troponin I 0.28 ng/mL (< 0.04) H* 10/17/17 04:56 B-Natriuretic Peptide 1125 pg/mL (Less than 100) H 10/14/17 20:31 Triglycerides 234 mg/dL (< 150) H 10/16/17 07:32 VLDL Cholesterol, Calc 47 mg/dL (< 31) H 10/16/17 07:32 HDL Cholesterol 31 mg/dL (40-59) L 10/16/17 07:32 - Microbiology Findings Microbiology Findings: Microbiology, Last 48 Hours 10/15/17 15:10 Legionella Antigen - Final Urine,Clean Catch - Clinical Findings Intake & Output: Intake & Output 10/16/17 10/16/17 10/17/17 15:59 23:59 07:59 Intake Total 521 / 521 514 / 514 0 / 0 Output Total 1300 / 1300 1000 / 1000 400 / 400 Balance -779 / -779 -486 / -486 -400 / -400 - VTE Reasons for not Prescribing Prophylaxis: Not indicated-Anticoagulated or INR therapeutic
[2017-10-17] MEDS: Gabapentin 300 MG CAPSULE PO SCH ×3 (08:09→20:20)
[2017-10-17] MEDS: Aspirin 81 MG TAB.CHEW PO SCH (08:09)
[2017-10-17] MEDS: Nicotine 14 MG PATCH.TD24 TD SCH (08:10)
[2017-10-17] MEDS: *HR* Ticagrelor 90 MG TABLET PO SCH ×2 (08:10→20:20)
[2017-10-17 08:12] LABS: Basophils % 0.2 %; Eosinophils # 0.1 K/mcL (0.0-0.6); Hematocrit 32.2 % (35.3-44.9); Hemoglobin 10.3 g/dL (11.5-15.4); Immature Granulocytes % 0.9 % (0-4); Lymphocytes # 1.3 K/mcL (0.6-4.6); Lymphocytes % 13.9 %; Mean Corpuscular Hemoglobin 32.3 pg (28.0-33.3); Mean Corpuscular Volume 100.9 fL (83.0-100.0); Mean Platelet Volume 9.9 fL (9.4-12.4); Monocytes # 0.4 K/mcL (0.0-1.3); Monocytes % 4.6 %; Neutrophils # 7.4 K/mcL (1.6-8.9); Nucleated Red Blood Cells 0.2 /100 WBC (0); Platelet Count 259 K/mcL (140-400); Red Blood Count 3.19 M/mcL (3.82-4.97); Red Cell Distribution Width 16.9 % (11.5-14.5); Segmented Neutrophils % 79.4 %
[2017-10-17 08:25] LABS: BUN/Creatinine Ratio 13 (6-26); Blood Urea Nitrogen 11 mg/dL (6-20); Calcium 8.2 mg/dL (8.6-10.3); Carbon Dioxide 22 mEq/L (23-29); Chloride 112 mEq/L (98-107); Glucose 96 mg/dL (70-105); Magnesium 1.4 mg/dL (1.6-2.6); Osmolality,Calculated 291 (280-300); Potassium 3.7 mEq/L (3.5-5.1); Sodium 141 mEq/L (136-145); eGFR For African Americans > 60 (> 60); eGFR For Non-African Americans > 60 (> 60)
--- NOTE | 2017-10-17 09:15 | Cardiology Progress Note ---
Date of Encounter: 10/17/17 Time of Encounter: 09:20 Assessment and Plan (1) Acute respiratory failure with hypoxia Current Visit: Yes Status: Acute Per Cardiology: History of nicotine abuse and treated recently for pneumonia and ARDS. Pulmonology following. CT negative PE. Appears improved. (2) Elevated brain natriuretic peptide (BNP) level Current Visit: Yes Status: Acute Per Cardiology: Euvolemic on exam. (3) Elevated troponin Current Visit: Yes Status: Acute Per Cardiology: NSTEMI with peak trop. 0.93. S/p LHC: Underwent PTCA with drug-eluting stent to mid LAD 75% lesion, otherwise angiographically normal. On aspirin, Brilinta, statin, beta lopez. Has SL NTG. Has CR C/S. Continues to have atypical midsternal chest pain worse with palpation and deep inspiration, her other left sided chest pain with arm pain has resolved. Patient educated on postprocedure care and post OR activities at home. Patient encouraged to not discontinue aspirin and Brilinta for at least one year unless directed by cardiology, assistance card provided. All questions answered, cardiology signing off, reconsult as needed, follow-up scheduled. Patient verbalized understanding and agreed with plan. Discussion w patient/family: The assessment and plan as outlined above was discussed with the patient who expressed understanding and agreement. All questions were answered. Thank you for involving us in the care of your patient. Please call with any questions. Subjective Principal diagnosis: NSTEMI Interval history: Patient reports left-sided chest pain now resolved. Continues to have midsternal chest pain with palpation and coughing. Denies any concerns from her right groin site. Now off oxygen. Objective Vital Signs, Last 4 Hours Temp Pulse Resp BP Pulse Ox 10/17/17 08:22 99.1 F 10/17/17 08:21 22 97 10/17/17 08:00 97 20 99/79 98 10/17/17 07:00 97 10/17/17 06:00 93 20 112/73 98 General: Conversant, No Apparent Distress HEENT: Atraumatic, Normocephaly, Mucus Membranes Moist Neck: No JVD, Normal carotid pulses Cardiac: Reg Rate and Rhythm, Normal S1 and S2, No Murmur Lungs: No Wheeze, Rales, Rhonchi, Other (Diminished breath sounds throughout) Neuro: Alert and responsive, No focal deficits noted Abdomen: Soft, Non-Tender Skin: No rashes noted on visualized skin, Other (Right groin site dry and intact , mild ecchymosis, no bleeding, no hematoma, right DP and PT pulses 2+ palpable) Musculoskeletal: No Chest Wall Tenderness Extremities: No Clubbing, No Cyanosis, No Edema, Normal Pulses Results 10/17/17 07:56 10/17/17 07:56 Lab Results 10/16/17 10/17/17 10/17/17 14:34 04:56 04:56 WBC Hgb 9.6 L Hct 29.9 L Plt Count 257 APTT 89.5 H D Sodium Potassium Chloride Carbon Dioxide BUN 11 Creatinine 0.95 Glucose Calcium Magnesium Troponin I 10/17/17 10/17/17 10/17/17 04:56 07:56 07:56 WBC 9.3 Hgb 10.3 L Hct 32.2 L Plt Count 259 APTT Sodium 141 Potassium 3.7 Chloride 112 H Carbon Dioxide 22 L BUN 11 Creatinine 0.86 Glucose 96 Calcium 8.2 L Magnesium 1.4 L Troponin I 0.28 H* - Imaging and Cardiology Cardiac cath: report reviewed - EKG Interpretation EKG results cardiology: other (Sinus rhythm on telemetry) - VTE Reasons for not Prescribing Prophylaxis: Not indicated-Anticoagulated or INR therapeutic Consult Discharge Plan - Plan Referrals: Joey Rg DO [Primary Care Provider] -
[2017-10-17] MEDS ORDERED: *HR* OxyCODONE/APAP 10/325 TABLET PO PRN (11:37)
[2017-10-17] MEDS ORDERED: Nitroglycerin 0.4 MG TAB.SUBL SL PRN (13:56)
[2017-10-17] MEDS ORDERED: Albuterol 2.5 MG/3 ML NEBULIZER IH PRN (13:56)
[2017-10-17 15:10] LABS: ANA IgG by ELISA NONE DETECTED (None Detected); Complement Component 4 26 mg/dL (10-40)
[2017-10-17] MEDS: tiZANidine 4 MG TABLET PO PRN (16:21)
[2017-10-17] MEDS ORDERED: traZODone 50 MG TABLET PO SCH (21:00)
[2017-10-17] MEDS: Nystatin SUSP 5 ML UD.LIQ PO SCH (21:11)
[2017-10-18] MEDS: tiZANidine 4 MG TABLET PO PRN ×2 (03:19→10:15)
[2017-10-18] MEDS: Ipratropium/Albuterol Neb 3 ML IH SCH ×3 (04:16→10:47)
[2017-10-18] MEDS: Benzonatate 100 MG CAPSULE PO PRN ×2 (04:25→12:15)
[2017-10-18] MEDS: *HR* OxyCODONE/APAP 10/325 TABLET PO PRN ×2 (04:25→12:10)
--- NOTE | 2017-10-18 07:52 | Electrocardiograph Report ---
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
--- NOTE | 2017-10-18 07:52 | Electrocardiograph Report ---
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
--- NOTE | 2017-10-18 07:53 | Electrocardiograph Report ---
[address] [place], [place] [address] Test Date: 2017-10-14 Pat Name: Judy Bonilla Department: 104 Room: 2A Gender: F Shuttle Driver: AVI : 1970 Requested By: Alejandro Mayes Order Number: [id number] Reading MD: French Leiva MD Measurements Intervals [place] Rate: 105 P: 82 [place]: 166 QRS: 19 QRSD: 92 T: 249 QT: 362 QTc: 423 Interpretive Statements SINUS TACHYCARDIA ANTEROLATERAL ISCHEMIA BASELINE ARTIFACT COMPLICATES ACCURATE INTERPRETATION Electronically Signed On 10-18-2017 6:00:40 EST by French Leiva MD
--- NOTE | 2017-10-18 07:53 | Electrocardiograph Report ---
[address] [place], [place] [address] Test Date: 2017-10-15 Pat Name: Judy Bonilla Department: 109 Room: 2A Gender: F Director Financial Services: TIFFANIE : 1970 Requested By: Jignesh Jim Order Number: [id number] Reading MD: French Leiva MD Measurements Intervals [place] Rate: 103 P: 7 [place]: 112 QRS: 11 QRSD: 88 T: 176 QT: 391 QTc: 451 Interpretive Statements SINUS TACHYCARDIA WITH SHORT MI INTERVAL LEFT ATRIAL ENLARGEMENT ANTEROLATERAL ISCHEMIA Electronically Signed On 10-18-2017 6:06:46 EST by French Leiva MD
--- NOTE | 2017-10-18 07:57 | Electrocardiograph Report ---
[place] [address] Test Date: 2017-10-16 Pat Name: Judy Bonilla Department: 109 Room: 2A Gender: F Hull Drafter: : 1970 Requested By: Jennifer Cardenas Order Number: [id number] Reading MD: French Leiva MD Measurements Intervals [place] Rate: 93 P: 51 [place]: 141 QRS: 26 QRSD: 89 T: 0 QT: 352 QTc: 403 Interpretive Statements SINUS RHYTHM Electronically Signed On 10-18-2017 7:22:38 EST by French Leiva MD
[2017-10-18 08:01] LABS: Myeloperoxidase Ab 1 AU/mL (0-19); Serine Protease-3 Antibody 0 AU/mL (0-19)
[2017-10-18] MEDS ORDERED: Nicotine 14 MG PATCH.TD24 TD SCH (09:00)
[2017-10-18] MEDS ORDERED: Aspirin 81 MG TAB.CHEW PO SCH (09:00)
--- NOTE | 2017-10-18 09:20 | Electrocardiograph Report ---
[address] [place] [address] Test Date: 2017-10-16 Pat Name: Judy Bonilla Department: 109 Room: 2A Gender: F Clinical Athletic Instructor: Raymon : 1970 Requested By: Jennifer Cardenas Order Number: [id number] Reading MD: French Leiva MD Measurements Intervals [place] Rate: 100 P: 47 [place]: 142 QRS: 35 QRSD: 85 T: 222 QT: 351 QTc: 408 Interpretive Statements SINUS TACHYCARDIA LATERAL ISCHEMIA Electronically Signed On 10-18-2017 9:18:46 EST by French Leiva MD
[2017-10-18] MEDS: Gabapentin 300 MG CAPSULE PO SCH (10:08)
[2017-10-18] MEDS: *HR* Ticagrelor 90 MG TABLET PO SCH (10:08)
[2017-10-18] MEDS: Nystatin SUSP 5 ML UD.LIQ PO SCH ×2 (10:09→12:10)
[2017-10-18 10:54] VITALS: BP 117/62
--- NOTE | 2017-10-18 13:44 | Discharge Summary ---
Date of Encounter: 10/18/17 Time of Encounter: 13:41 - Discharge Diagnosis (1) Community acquired pneumonia Priority: Primary Status: Ruled-out Qualifiers: Laterality: unspecified laterality Qualified Code(s): J18.9 - Pneumonia, unspecified organism (2) Acute respiratory failure with hypoxia Priority: Primary Status: Acute (3) HTN (hypertension) Priority: Secondary Status: Chronic Qualifiers: Hypertension type: essential hypertension Qualified Code(s): I10 - Essential (primary) hypertension (4) COPD with acute exacerbation Priority: Primary Status: Acute (5) Tobacco dependence Priority: Secondary Status: Chronic (6) NSTEMI (non-ST elevated myocardial infarction) Priority: Primary Status: Acute (7) CHF (congestive heart failure) Priority: Primary Status: Acute Qualifiers: Congestive heart failure type: combined Congestive heart failure chronicity : acute Qualified Code(s): I50.41 - Acute combined systolic (congestive) and diastolic (congestive) heart failure - Discharge Medications Prescriptions: Nitroglycerin 0.4 mg SL Q5MIN PRN #30 tab.subl PRN Reason: Chest Pain Aspirin 81 mg PO DAILY #30 tab.chew Atorvastatin [Lipitor] 20 mg PO HS #60 tablet Metoprolol [Lopressor] 12.5 mg PO BID #30 tablet Ticagrelor [Brilinta] 90 mg PO BID #60 tablet Home Medications: Albuterol Sulfate [Ventolin Hfa] 2 puff IH Q4-6H PRN #1 hfa.aer.ad 09/06/17 [Rx] Trazodone HCl 100 mg PO HS 09/11/17 [History] hydrOXYzine HCl [Hydroxyzine HCl] 25 mg PO BID PRN 09/11/17 [History] Buspirone HCl [Buspar] 10 mg PO TID 10/15/17 [History] Duloxetine HCl [Cymbalta] 60 mg PO DAILY 10/15/17 [History] Gabapentin [Neurontin] 600 mg PO TID 10/15/17 [History] Melatonin/Pyridoxine HCl (B6) [Melatonin 3 mg Tablet] 3 mg PO HS 10/15/17 [ History] Omeprazole [PriLOSEC] 40 mg PO DAILY 10/15/17 [History] Oxycodone HCl/Acetaminophen [Percocet 10-325 mg Tablet] 1 tab PO TID PRN [History] Tizanidine HCl [Zanaflex] 4 mg PO TID 10/15/17 [History] Aspirin 81 mg PO DAILY #30 tab.chew 10/18/17 [Rx] Atorvastatin [Lipitor] 20 mg PO HS #60 tablet 10/18/17 [Rx] Metoprolol [Lopressor] 12.5 mg PO BID #30 tablet 10/18/17 [Rx] Nitroglycerin 0.4 mg SL Q5MIN PRN #30 tab.subl 10/18/17 [Rx] Ticagrelor [Brilinta] 90 mg PO BID #60 tablet 10/18/17 [Rx] Allergies/Adverse Reactions: 3 Allergy/AdvReac Type Severity Reaction Status Date / Time morphine Allergy Itching Verified 10/14/17 20:00 Procedures/tests Complete & Pending: Procedures Performed prior 72 hours Category Date Time Status CL Cardiac Catheterization [CL] Routine Cooker Sulfite 10/16/17 12:25 Completed ECG 12 lead ECG [ECG] AM 0600 Y 10/17/17 06:00 Completed ECG 12 lead ECG [ECG] Stat Y 10/16/17 17:30 Completed Date of admission: 10/15/17 00:40 Primary care physician: Joey Rg DO Consults: 10/15/17 02:09 Consult to Cardiology [CONS] Routine Comment: Consulting Provider: Cardiology Stephanie Reason for Consult: NSTEMI, Acute HF Call Completed: Yes 10/15/17 18:29 Consult to Rfid Manager [CONS] Routine Reason for SW Consult: patient wishes to discuss appointing a POA 10/16/17 17:30 Consult to Cardiac Rehabilitation-Phase1 [CONS] Routine Comment: Reason for Consult: post op PCI Call Completed: Yes Discharging clinician: Glenys Rosa Anticipated date of discharge: 10/18/17 - Patient Status Disposition: Home, Self-Care Condition: Good Functional capacity at discharge: independent ambulation Overall status at discharge: patient is progressing back to baseline - Discharge Instructions Instructions: Myocardial Infarction (DC), Chronic Obstructive Pulmonary Disease (DC) Follow Up With: Joey Rg DO [Primary Care Provider] - 10/24/17 10:00 am (Please follow up as schedule....please note the clinic is located at [facility]...) Yanci Fuller MD [Partnered Physician] - 11/07/17 11:15 am (Please follow up as schedule) Additional Instructions: F/up with [facility]iology in 3-4 weeks - Diet and Activity Activity: resume usual activities as tolerated Diet: low fat, low cholesterol, low salt diet Hospital course: Ms. Bonilla is a 47 year old female with history of hypertension and tobacco abuse, was initially admitted to ICU with significant chest pain and shortness of breath. Patient was noted to have new ST-T wave changes on EKG along with elevated troponin. She was started on IV nitroglycerin drip and cardiology was consulted. Patient was also initially started on IV heparin drip. Echocardiogram was completed which showed overall normal left ventricular systolic function, mild diastolic dysfunction. She underwent left heart catheterization after medical stabilization, and received 1 drug-eluting stent to mid LAD. she was started on dual antiplatelet therapy. CT angiogram showed no evidence of acute pulmonary embolism but diffuse groundglass attenuation of the lungs, relatively sparing the upper lung zones, could be pulmonary edema versus pneumonia. She was initially started on broad- spectrum IV antibiotics for possible sepsis and pneumonia, which were eventually discontinued and pneumonia was ruled out. Patient was transferred to medical floor in stable condition. She is asymptomatic today and is requesting to be discharged home. She is hemodynamically stable and will be discharged home with outpatient cardiology and PCP follow-up. Smoking cessation was reinforced, along with the risks associated with worsening COPD, CAD, risk of stroke and multiple cancers and patient verbalized understanding. Time spent discussing smoking cessation with patient: 3 to 10 minutes - Time Spent with Patient Total time spent providing and/or coordinating discharge services: Greater than 30 minutes (45 min) - Constitutional Vitals: Temp Pulse Resp BP Pulse Ox 98.1 F 116 17 117/62 100 10/18/17 10:52 10/18/17 10:52 10/18/17 10:52 10/18/17 10:52 10/18/17 10:52 General appearance: Present: A&O X 3, answers questions appropriately - Cardiovascular Cardiovascular exam: Present: RRR, +S1, +S2. Absent: diastolic murmur, gallop, rubs, systolic murmur - VTE Reasons for not Prescribing Prophylaxis: Not indicated-Anticoagulated or INR therapeutic
[2017-10-20 08:20] LABS: Mycoplasma pneumoniae IgG 1.2 U/L (<=0.09)
== END 2017-10-18 14:15 | disposition home or self-care (01) | DRG 710 ==
LOC: EMEROO 19:58 → SUATTDRO 10-15 00:40 → ICNU 10-15 00:40 → 2ANU 10-17 13:53
PROVIDERS: ADMIT Internal Medicine; ATTEND Internal Medicine

== ENCOUNTER 2017-11-06 13:58 | Observation (INO) ==
[2017-11-06] MEDS ORDERED: Nitroglycerin 0.4 MG TAB.SUBL SL PRN (14:38)
[2017-11-06 14:48] LABS: Basophils % 0.3 %; Eosinophils # 0.1 K/mcL (0.0-0.6); Eosinophils % 2.8 %; Hemoglobin 12.1 g/dL (11.5-15.4); Immature Granulocytes % 0.5 % (0-4); Lymphocytes # 0.4 K/mcL (0.6-4.6); Lymphocytes % 10.3 %; Mean Corpuscular HGB Conc 33.6 g/dL (31.6-35.5); Mean Corpuscular Hemoglobin 31.6 pg (28.0-33.3); Mean Platelet Volume 9.6 fL (9.4-12.4); Monocytes # 0.3 K/mcL (0.0-1.3); Monocytes % 7.5 %; Neutrophils # 3.1 K/mcL (1.6-8.9); Nucleated Red Blood Cells 0.5 /100 WBC (0); Platelet Count 273 K/mcL (140-400); Red Blood Count 3.83 M/mcL (3.82-4.97); Segmented Neutrophils % 78.6 %
[2017-11-06] MEDS ORDERED: *HR* LORazepam 2 MG/ML VIAL ONE (14:53)
[2017-11-06] MEDS ORDERED: *HR* LORazepam 2 MG/ML VIAL IVP ONE (14:53)
[2017-11-06 14:55] LABS: BUN/Creatinine Ratio 7 (6-26); Blood Urea Nitrogen 5 mg/dL (6-20); Calcium 9.4 mg/dL (8.6-10.3); Carbon Dioxide 26 mEq/L (23-29); Chloride 103 mEq/L (98-107); Glucose 112 mg/dL (70-105); Osmolality,Calculated 284 (280-300); Potassium 2.8 mEq/L (3.5-5.1); Sodium 138 mEq/L (136-145); eGFR For African Americans > 60 (> 60); eGFR For Non-African Americans > 60 (> 60)
--- NOTE | 2017-11-06 15:00 | Emergency Department Note ---
Disposition Clinical Impression: Unstable angina, Difficulty breathing, Anxiety Disposition: Admitted As Inpatient Condition: Fair Time of Disposition: 17:02 SOB HPI - General Chief Complaint: ED Shortness of Breath/Dyspnea Stated Complaint: MIRIAM Time Seen by Provider: 11/06/17 13:59 Source: patient Limitations: no limitations Nursing Notes Reviewed: Yes Vital Signs Reviewed: Yes - History of Present Illness Patient is a 47-year-old female complains of chest and back pain with shortness of breath worsening over the past 3 days. Patient states her chest pain is mid substernal chest pressure without radiation 8/10 in intensity, and constant. Patient states she has a recent history of stent and anterior part of her heart test 2 weeks ago. Patient states she has shortness of breath and has a history of COPD as well. Patient states she has been having associated diaphoresis when the pain started. Patient states she initially thought she was coming out bronchitis, but symptoms worsen to mimic her recent anginal equivalent of symptoms that started when she had her stent. Patient states she started having episodes of vomiting that started one day ago times for bouts. And again today times for bouts. Patient denies any hematemesis. - Related Data Home Medications Medication Instructions Recorded Confirmed Trazodone HCl 100 mg PO HS 09/11/17 11/06/17 hydrOXYzine HCl [Hydroxyzine HCl] 25 mg PO BID PRN 09/11/17 11/06/17 Buspirone HCl [Buspar] 10 mg PO TID 10/15/17 11/06/17 Duloxetine HCl [Cymbalta] 60 mg PO DAILY 10/15/17 11/06/17 Melatonin/Pyridoxine HCl (B6) 3 mg PO HS 10/15/17 11/06/17 [Melatonin 3 mg Tablet] Omeprazole [PriLOSEC] 40 mg PO DAILY 10/15/17 11/06/17 Oxycodone HCl/Acetaminophen 1 tab PO TID PRN 10/15/17 11/06/17 [Percocet 10-325 mg Tablet] Tizanidine HCl [Zanaflex] 4 mg PO TID PRN 10/15/17 11/06/17 Atorvastatin Calcium [Lipitor] 20 mg PO HS 11/06/17 11/06/17 Clopidogrel [Plavix] 75 mg PO DAILY 11/06/17 11/06/17 Gabapentin [Neurontin] 800 mg PO TID 11/06/17 11/06/17 SUMAtriptan Succinate [Imitrex] 100 mg PO Q2H PRN MDD 200 mg 11/06/17 11/06/17 Previous Rx's Medication Instructions Recorded Albuterol Sulfate [Ventolin Hfa] 2 puff IH Q4-6H PRN #1 hfa.aer.ad 09/06/17 Aspirin 81 mg PO DAILY #30 tab.chew 10/18/17 Nitroglycerin 0.4 mg SL Q5MIN PRN #30 tab.subl 10/18/17 Allergies Allergy/AdvReac Type Severity Reaction Status Date / Time morphine Allergy Itching Verified 10/14/17 20:00 Constitutional: Reports: weakness. Denies: fever, chills Eyes: Denies: vision change ENT ED: Reports: congestion Cardiovascular: Reports: chest pain, dyspnea on exertion. Denies: palpitations Respiratory: Denies: cough Gastrointestinal: Reports: nausea, vomiting Past Medical History - Past Medical History Attestation: Yes The following information was validated with the patient. Source: patient, nursing notes reviewed Medical history: Reports: COPD, hypertension, other Surgical history: Reports: cholecystectomy, hysterectomy, other Psychiatric history: Reports: anxiety, depression, PTSD ORTHOTIC/PROSTHETIC CLINICIAN history: Reports: no ORTHOTIC/PROSTHETIC CLINICIAN history - Social History Smoking Status: Light tobacco smoker Smokeless Tobacco Status: No Alcohol use: Reports: none Drug use: Reports: none Physical Exam Vital Signs Temperature 98.3 F 11/06/17 14:07 Pulse Rate 96 11/06/17 14:07 Respiratory Rate 20 11/06/17 14:07 Blood Pressure 173/121 11/06/17 14:07 O2 Sat by Pulse Oximetry 100 11/06/17 14:07 Temperature 98.3 F 11/06/17 14:07 Pulse Rate 110 11/06/17 14:53 Respiratory Rate 28 11/06/17 14:53 Blood Pressure 156/93 11/06/17 14:53 O2 Sat by Pulse Oximetry 100 11/06/17 14:53 Oxygen Delivery Oxygen Delivery Room Air CONSTITUTIONAL: A 47-year-old female who is; A&O X 3, who appears in acute distress with diaphoresis, with shallow breathing and diaphoresis. Patient has conversational dyspnea and can state to words before having her take a breath HEAD: Normocephalic; atraumatic EYES: PERRL, no scleral icterus NOSE: The nose is normal in appearance without rhinorrhea NECK: No JVD or distended neck veins RESP: Normal chest excursion with respiration; breath sounds clear and equal bilaterally; no wheezes, rhonchi, or rales CARD: Regular rhythm, rapid rate without murmurs, rub or gallop Chest: No reproducible chest wall tenderness to palpation ABD: Non-distended; non-tender, soft, without rigidity, rebound or guarding,no pulsatile mass CHEST: No pain with palpation SKIN: Normal for age and race; warm and dry without diaphoresis ; no apparent lesions EXTREMITIES: Pulses are 2 plus and equal times 4 extremities, no peripheral edema or calf muscle pain - General Limitations: no limitations General appearance: alert Course - Reevaluation(s) Reevaluation #1: Repeat EKG ordered for worsening chest pain symptoms. First nitroglycerin given at 1420 hrs. No effect on reevaluation. Patient appears very anxious and has a history of anxiety, she will be given a dose of Ativan to see if this helps reduce her pain symptoms which may be exacerbated by anxiety. Time: 14:59 Reevaluation #2: Patient's doing well. She is in the bedside commode and has no complaints at this time Time: 15:15 Reevaluation #3: Patient having diaphoresis and complaining of chest pain again, and rates the pain as 8/10. Ordered 50 g of fentanyl. EKG ordered Time: 16:21 Vital Signs Temperature 98.3 F 11/06/17 14:07 Pulse Rate 96 11/06/17 14:07 Respiratory Rate 20 11/06/17 14:07 Blood Pressure 173/121 11/06/17 14:07 O2 Sat by Pulse Oximetry 100 11/06/17 14:07 Temperature 98.9 F 11/06/17 19:31 Pulse Rate 101 11/06/17 19:31 Respiratory Rate 17 11/06/17 19:31 Blood Pressure 171/107 11/06/17 19:31 O2 Sat by Pulse Oximetry 96 11/06/17 19:31 Oxygen Delivery Oxygen Delivery Room Air Shortness of Breath/Dyspnea - MDM Narrative Medical decision making narrative: 47-year-old female comes in with chest pain difficulty breathing acute onset and is status post cardiac stent 2 weeks ago. Patient concern for possible ACS /TX, aortic dissection, or PE. Patient is given nitroglycerin but did not respond to nitroglycerin. The pain got worse. Repeat EKGs were taken for each complaining of worsening chest pain which showed no evolution of lateral lead ST depression from V3 to V6. She complained that her back hurt worse than her her sternum. Due to high concern for aortic dissection at that time, the Patient was sent for a CTA of the chest and abdomen, which came back negative for abnormalities. Incidentally patient' s CT of the chest showed suprahilar and infrahilar nodules will require further investigation. After patient came back from CT she states her pain was still worsening, and was so fentanyl was ordered to treat her pain. My attending Dr. Finley has been in discussion with cardiology, Dr. Roberts, see his note for complete discussion. Patient will be admitted for further evaluation. Patient understands and agrees to decision for admission. Patient's lab work was negative for elevated troponin, but was positive for hypokalemia at 2.8, WBC of 4.0. Patient was placed on a potassium supplementation [address] Torres the hospitalist has accepted the patient for admission at 1654 hrs. in stable condition and pain under control with fentanyl. Patient has a history of bad anxiety which she was given Ativan for, that also helped her pain. - Lab Data Lab results reviewed: Yes I reviewed the patient's lab results. Lab results narrative: Short CBC 11/06/17 Range/Units 14:30 WBC 4.0 L (4.3-11.1) K/mcL Hgb 12.1 (11.5-15.4) g/dL Hct 36.0 (35.3-44.9) % Plt Count 273 (140-400) K/mcL Neutrophils # 3.1 (1.6-8.9) K/mcL BMP 11/06/17 Range/Units 14:30 Sodium 138 (136-145) mEq/L Potassium 2.8 L (3.5-5.1) mEq/L Chloride 103 (98-107) mEq/L Carbon Dioxide 26 (23-29) mEq/L BUN 5 L (6-20) mg/dL Creatinine 0.67 (0.60-1.20) mg/dL Glucose 112 H (70-105) mg/dL Calcium 9.4 (8.6-10.3) mg/dL Cardiac Enzymes 11/06/17 Range/Units 14:30 Troponin I < 0.03 (< 0.04) ng/mL Result diagrams: 11/06/17 17:37 11/06/17 14:30 Lab Results 11/06/17 11/06/17 11/06/17 Range/Units 14:30 14:30 14:30 WBC 4.0 L (4.3-11.1) K/mcL RBC 3.83 (3.82-4.97) M/mcL Hgb 12.1 (11.5-15.4) g/dL Hct 36.0 (35.3-44.9) % MCV 94.0 (83.0-100.0) fL MCH 31.6 (28.0-33.3) pg MCHC 33.6 (31.6-35.5) g/dL RDW 15.0 H (11.5-14.5) % Plt Count 273 (140-400) K/mcL MPV 9.6 (9.4-12.4) fL Immature Gran % 0.5 (0-4) % Seg Neutrophils % 78.6 % Lymphocytes % 10.3 % Monocytes % 7.5 % Eosinophils % 2.8 % Basophils % 0.3 % Neutrophils # 3.1 (1.6-8.9) K/mcL Lymphocytes # 0.4 L (0.6-4.6) K/mcL Monocytes # 0.3 (0.0-1.3) K/mcL Eosinophils # 0.1 (0.0-0.6) K/mcL Basophils # 0.0 (0.0-0.2) K/mcL Nucleated RBCs/100 WBC 0.5 H (0) /100 WBC Sodium 138 (136-145) mEq/L Potassium 2.8 L (3.5-5.1) mEq/L Chloride 103 (98-107) mEq/L Carbon Dioxide 26 (23-29) mEq/L BUN 5 L (6-20) mg/dL Creatinine 0.67 (0.60-1.20) mg/dL Est GFR ( Amer) > 60 (> 60) Est GFR (Non-Af Amer) > 60 (> 60) BUN/Creatinine Ratio 7 (6-26) Glucose 112 H (70-105) mg/dL Calculated Osmolality 284 (280-300) Lactic Acid 1.9 (0.5-2.2) mmol/L Calcium 9.4 (8.6-10.3) mg/dL Troponin I (< 0.04) ng/mL B-Natriuretic Peptide (Less than 100) pg/mL 11/06/17 11/06/17 Range/Units 14:30 14:30 WBC (4.3-11.1) K/mcL RBC (3.82-4.97) M/mcL Hgb (11.5-15.4) g/dL Hct (35.3-44.9) % MCV (83.0-100.0) fL MCH (28.0-33.3) pg MCHC (31.6-35.5) g/dL RDW (11.5-14.5) % Plt Count (140-400) K/mcL MPV (9.4-12.4) fL Immature Gran % (0-4) % Seg Neutrophils % % Lymphocytes % % Monocytes % % Eosinophils % % Basophils % % Neutrophils # (1.6-8.9) K/mcL Lymphocytes # (0.6-4.6) K/mcL Monocytes # (0.0-1.3) K/mcL Eosinophils # (0.0-0.6) K/mcL Basophils # (0.0-0.2) K/mcL Nucleated RBCs/100 WBC (0) /100 WBC Sodium (136-145) mEq/L Potassium (3.5-5.1) mEq/L Chloride (98-107) mEq/L Carbon Dioxide (23-29) mEq/L BUN (6-20) mg/dL Creatinine (0.60-1.20) mg/dL Est GFR ( Amer) (> 60) Est GFR (Non-Af Amer) (> 60) BUN/Creatinine Ratio (6-26) Glucose (70-105) mg/dL Calculated Osmolality (280-300) Lactic Acid (0.5-2.2) mmol/L Calcium (8.6-10.3) mg/dL Troponin I < 0.03 (< 0.04) ng/mL B-Natriuretic Peptide 919 H (Less than 100) pg/mL - Radiology Data Radiology results reviewed: Yes I reviewed the patient's radiology results. Chest X-Ray 11/06/17 14:19 IMPRESSION: No active cardiopulmonary disease D/ / Alfredo Jarvis MD / Alfredo Jarvis MD Interpreting Provider: Alfredo Jarvis MD Head CT 11/06/17 14:26 IMPRESSION: Negative CT brain with no acute intracranial abnormality. D/ / Amanda Galeano MD / Amanda Galeano MD Interpreting Provider: Amanda Galeano MD Chest CTA 11/06/17 15:29 IMPRESSION: 1. Unremarkable appearance of the aorta with no evidence of dissection or other significant abnormality. 2. Two right upper lobe cavitary nodules as measured above which are nonspecific but likely represent infectious/inflammatory process. 3. Few incidental and chronic/postsurgical findings as described including moderate centrilobular emphysema. D/ / Amanda Galeano MD / Amanda Galeano MD Interpreting Provider: Amanda Galeano MD Abdomen/Pelvis CTA 11/06/17 15:30 IMPRESSION: 1. Unremarkable appearance of the aorta with no evidence of dissection or other significant abnormality. 2. Two right upper lobe cavitary nodules as measured above which are nonspecific but likely represent infectious/inflammatory process. 3. Few incidental and chronic/postsurgical findings as described including moderate centrilobular emphysema. D/ / Amanda Galeano MD / Amanda Galeano MD Interpreting Provider: Amanda Galeano MD - EKG Data EKG attestation: Yes I reviewed and interpreted this EKG. EKG results narrative: EKG taken 08/2018 at 1705 hrs. shows sinus rhythm at a rate of [address] depressions in V3 and V4 V5 and V6. T-wave inversions in V2 V3 and aVF. These can be seen on previous EKG taken 10/24/2017. However, today's EKG has T-wave inversions in V2 Attestation Statement - Attestation Attestation: I, Shaheed Finley, examined this patient and my medical decision-making was reviewed with the [employer]/PA/Advanced Practice Nurse/Resident Physician. I agree with the documented findings, disposition and treatment plan as described except to the extent set forth below. 47-year-old female presents emergency Department with concerns of difficulty in breathing, chest pain, headache. Patient states symptoms have been intermittent over the past few days, worsening today. Patient has a history of cardiac disease with a stent placed 1 month ago. Patient was very anxious on initial evaluation. Her BP was elevated at 176/123 with associated chest pain and headache. Patient had no focal neurologic deficits. EKG showed a normal sinus rhythm with a rate of 71 with deep inverted T waves in leads V3 through V6. It had similar morphology to previous EKG however the T waves were more deeply inverted this time. Because of the patient's headache and EKG changes, CT of the head was ordered, this was negative for acute changes or intracranial hemorrhage. Chest pain improved in the emergency department however is unclear if this occurred after the nitroglycerin or Ativan that was ordered. AP improved after administration of nitroglycerin. I spoke with Dr. Cardenas at 1528 after multiple pages, who agreed to evaluate the patient in the emergency department. Patient complained of chest pain radiating to her back and thus I ordered CT of the chest abdomen and pelvis to evaluate for dissection. CTA was negative for acute dissection. Patient will be admitted to the hospital for further care and evaluation of her chest pain and elevated blood pressure.
[2017-11-06] MEDS ORDERED: *HR* FentaNYL (PF) 100 MCG/2 ML VIAL IVP ONE (16:23)
[2017-11-06] MEDS ORDERED: *HR* Heparin 5,000 UNIT/ML VIAL IVP ONE ×2 (17:08→20:16)
[2017-11-06] MEDS ORDERED: *HR* Heparin 5,000 UNIT/ML VIAL IVP PRN ×3 (17:08→20:16)
[2017-11-06] MEDS ORDERED: Heparin 25,000 UNIT/500 ML D5W 25,000 UNIT/500 ML BAG IVC SCH ×2 (17:15→20:30)
[2017-11-06] MEDS ORDERED: tiZANidine 4 MG TABLET PO PRN (17:55)
[2017-11-06] MEDS ORDERED: SUMAtriptan succinate 50 MG TABLET PO PRN (17:55)
[2017-11-06] MEDS ORDERED: hydrOXYzine pamoate 25 MG CAPSULE PO PRN (17:55)
[2017-11-06] MEDS ORDERED: Naloxone 0.4 MG/ML INJ IVP PRN (17:57)
[2017-11-06 18:02] LABS: Hematocrit 34.2 % (35.3-44.9); Hemoglobin 11.7 g/dL (11.5-15.4); Mean Corpuscular HGB Conc 34.2 g/dL (31.6-35.5); Mean Corpuscular Hemoglobin 32.3 pg (28.0-33.3); Mean Corpuscular Volume 94.5 fL (83.0-100.0); Mean Platelet Volume 9.7 fL (9.4-12.4); Platelet Count 246 K/mcL (140-400); Red Blood Count 3.62 M/mcL (3.82-4.97); Red Cell Distribution Width 15.1 % (11.5-14.5)
[2017-11-06 18:04] LABS: INR 1.3
[2017-11-06 18:07] LABS: Activated Partial Thrombo Time 34.6 Seconds (26.0-36.0)
[2017-11-06] MEDS ORDERED: *HR* Heparin 5,000 UNIT/ML VIAL ONE (18:43)
[2017-11-06] MEDS: Nitroglycerin 1 INCH/GM PACKET TP SCH (19:02)
--- NOTE | 2017-11-06 19:44 | Internal Med History&Physical ---
<Deep Mcgovern - Last Filed: 11/06/17 19:53> Date of Encounter: 11/06/17 Time of Encounter: 19:00 Assessment and Plan (1) Unstable angina Current visit: Yes Status: Acute Chest pain and dyspnea for the last few days. She recently had an LHC and PTCA with drug-eluting stent to mid LAD 75% lesion Additionally reporting URI symptoms concerning for influenza as her is also flu positive. D/t to presentation and recent stenting there is some concern for occlusion of new stent -Continue ASA, plavix, statin -Heparin gtt -continuous tele, spo2 monitoring -rapid flu, respiratory infection panel to r/o flu -Nitro paste for chest pain -Morphine IVP for chest pain -consult cardio- Spoke with Dr. Blake, cardio will see the patient - cardiac enzymes x 2 q 6 hr - Metoprolol 12.5 mg PO BID - O2 by NC to keep SpO2 greater than 92% - 2D Echo (2) COPD with acute exacerbation Current visit: Yes Status: Acute Presents today with dyspnea, cough, wheezing and URI symptoms, I suspect an acute exacerbation of COPD. -Duonebs Q4hr (3) Elevated brain natriuretic peptide (BNP) level Current visit: Yes Status: Chronic (4) Hypokalemia Current visit: Yes Status: Acute secondary to N/V x3 days. Potassium of 2.8. She received 10meq IVPB in the ED. However, she is refusing any additional IV potassium. -give 60mg PO potassium now -recheck potassium at 2200 -BMP in the am -Continuous tele (5) HTN (hypertension) Current visit: Yes Status: Chronic Htn with BP now in the 170's, does not take anything for BP. Start metoprolol 5mg IVP q6hr PRN for SBP greater than 160 -12.5mg metoprolol PO BID, first dose now Qualifiers: Hypertension type: essential hypertension Qualified Code(s): I10 - Essential (primary) hypertension (6) DVT prophylaxis Current visit: Yes Status: Acute Heparin gtt Internal Medicine - H&P: HPI Chief complaint: chest pain, dyspnea, N/V and hypokalemia Admitted From: Home Plans for Post Hospital Care: Home History of present illness: Ms. Bonilla is a 47 year old female COPD, hypertension who presents to [facility] today with chest pain with radiation to her back and worsening shortness of breath over the last 3 days. The patient states that her chest pain is midsternal in 8 out of 10 in intensity and describes it as constant and sharp. 2 weeks ago she underwent PTCA of the LAD d/t 75% occlusion. Additionally, the patient has a history of COPD as well. She reports she has been experiencing chills, nonproductive cough, body aches and pains, nausea and vomiting 3 days. She reports her is experiencing the same symptoms and was recently diagnosed with influenza Past Med Surg Social Fam HX - Past Medical History Medical history: COPD, hypertension, other Psychiatric history: anxiety, depression, PTSD - Past Surgical History Surgical History: cholecystectomy, hysterectomy, other - Social History Smoking Status: Light tobacco smoker Smokeless Tobacco Status: No Alcohol use: none Drug use: none - Family History Mother Living Status: Still Living Hx Family Cardiac Disorders: Yes (cabg, chf, htn) Hx Family Respiratory Disorders: Yes (emphysema) Hx Family Endocrine Disorder: Yes (dm) Father Living Status: Still Living Hx Family Cardiac Disorders: Yes (heart disease) Internal Medicine - H&P: Meds Albuterol Sulfate [Ventolin Hfa] 2 puff IH Q4-6H PRN #1 hfa.aer.ad 09/06/17 [Rx] Trazodone HCl 100 mg PO HS 09/11/17 [History] hydrOXYzine HCl [Hydroxyzine HCl] 25 mg PO BID PRN 09/11/17 [History] Buspirone HCl [Buspar] 10 mg PO TID 10/15/17 [History] Duloxetine HCl [Cymbalta] 60 mg PO DAILY 10/15/17 [History] Melatonin/Pyridoxine HCl (B6) [Melatonin 3 mg Tablet] 3 mg PO HS 10/15/17 [ History] Omeprazole [PriLOSEC] 40 mg PO DAILY 10/15/17 [History] Oxycodone HCl/Acetaminophen [Percocet 10-325 mg Tablet] 1 tab PO TID PRN [History] Tizanidine HCl [Zanaflex] 4 mg PO TID PRN 10/15/17 [History] Aspirin 81 mg PO DAILY #30 tab.chew 10/18/17 [Rx] Nitroglycerin 0.4 mg SL Q5MIN PRN #30 tab.subl 10/18/17 [Rx] Atorvastatin Calcium [Lipitor] 20 mg PO HS 11/06/17 [History] Clopidogrel [Plavix] 75 mg PO DAILY 11/06/17 [History] Gabapentin [Neurontin] 800 mg PO TID 11/06/17 [History] SUMAtriptan Succinate [Imitrex] 100 mg PO Q2H PRN MDD 200 mg 11/06/17 [History] 3 Allergy/AdvReac Type Severity Reaction Status Date / Time morphine Allergy Itching Verified 10/14/17 20:00 All Systems PM: A 10-system review of systems was performed and is negative for pertinent findings except as documented above in the HPI. Review of systems: REVIEW OF SYSTEMS GENERAL: Negative for any nausea, vomiting, fevers, or weight loss. Positive for chills NEUROLOGIC: Negative for any blurry vision, blind spots, double vision, facial asymmetry, dysphagia, dysarthria, hemiparesis, hemisensory deficits, vertigo, ataxia. HEENT: Negative for any head trauma, neck trauma, neck stiffness, photophobia, phonophobia, sinusitis, rhinitis. Positive for sore throat CARDIAC: Positive for chest pain with radiation to the mid back, dyspnea at rest and on exertion, lightheadedness, dizziness PULMONARY: Negative for any wheezing, COPD, or TB exposure. Positive for dyspnea and a non productive cough GASTROINTESTINAL: Negative for any abdominal pain, bright red blood per rectum, melena. Positive for N/V x3 days GENITOURINARY: Negative for any dysuria, hematuria, incontinence. INTEGUMENTARY: Negative for any rashes, cuts, insect bites. RHEUMATOLOGIC: Negative for any joint pains, photosensitive rashes, history of vasculitis or kidney problems. HEMATOLOGIC: Negative for any abnormal bruising, frequent infections or bleeding. - Constitutional Vitals: Temp Pulse Resp BP Pulse Ox 97.8 F 92 16 153/103 100 11/06/17 17:43 11/06/17 17:43 11/06/17 17:43 11/06/17 17:43 11/06/17 17:43 General appearance: Present: mild distress, A&O X 3, answers questions appropriately - Head Head exam: Present: atraumatic, normocephalic - Eye Eye exam: Present: PERRL, conjuntiva pink, sclera anicteric Pupils: Present: PERRL - Neck Neck exam general surgery: Present: supple, trachea midline. Absent: lymphadenopathy - Respiratory Respiratory exam: Present: CTAB, rhonchi, wheezes. Absent: accessory muscle use , rales - Cardiovascular Cardiovascular exam: Present: RRR, +S1, +S2. Absent: diastolic murmur, gallop, rubs, systolic murmur - GI/Abdominal GI/Abdominal exam: Present: normal bowel sounds, soft, no peritoneal signs. Absent: distended, tenderness - Extremities Exam Extremities exam: Present: warm, radial pulses palpable and symmetrical. Absent : calf tenderness, cyanotic, pedal edema - Neurological Exam Neurological exam: Present: CN II-XII intact, oriented X3, no focal deficits. Absent: pronater drift, facial droop, speech deficit - Skin Skin exam: Present: dry, intact Additional comments: clatrent Internal Med - H&P Results - Labs CBC & Chem 7: 11/06/17 17:37 11/06/17 14:30 Labs: Short CBC 11/06/17 Range/Units 17:37 WBC 3.6 L (4.3-11.1) K/mcL Hgb 11.7 (11.5-15.4) g/dL Hct 34.2 L (35.3-44.9) % Plt Count 246 (140-400) K/mcL Cardiac Enzymes 11/06/17 Range/Units 18:24 Troponin I < 0.03 (< 0.04) ng/mL - EKG Data -: EKG Interpreted by Myself EKG shows normal: sinus rhythm Rate: normal - EKG Data When compared to previous EKG: there is no significant change EKG comments: Sinus rhythm with st abnormalities in V2-V6. However, they were present on prior EKGs as well. No changes 11/06/17 20:02 - Impressions Impressions Chest X-Ray 11/06/17 14:19 IMPRESSION: No active cardiopulmonary disease D/ / Alfredo Jarvis MD / Alfredo Jarvis MD Interpreting Provider: Alfredo Jarvis MD Head CT 11/06/17 14:26 IMPRESSION: Negative CT brain with no acute intracranial abnormality. D/ / Amanda Galeano MD / Amanda Galeano MD Interpreting Provider: Amanda Galeano MD Chest CTA 11/06/17 15:29 IMPRESSION: 1. Unremarkable appearance of the aorta with no evidence of dissection or other significant abnormality. 2. Two right upper lobe cavitary nodules as measured above which are nonspecific but likely represent infectious/inflammatory process. 3. Few incidental and chronic/postsurgical findings as described including moderate centrilobular emphysema. D/ / Amanda Galeano MD / Amanda Galeano MD Interpreting Provider: Amanda Galeano MD Abdomen/Pelvis CTA 11/06/17 15:30 IMPRESSION: 1. Unremarkable appearance of the aorta with no evidence of dissection or other significant abnormality. 2. Two right upper lobe cavitary nodules as measured above which are nonspecific but likely represent infectious/inflammatory process. 3. Few incidental and chronic/postsurgical findings as described including moderate centrilobular emphysema. D/ / Amanda Galeano MD / Amanda Galeano MD Interpreting Provider: Amanda Galeano MD Cervical Spine CT 11/06/17 16:33 IMPRESSION: No acute osseous abnormality of the cervical spine. Postsurgical changes in the lower cervical spine. Intact hardware. No fracture, subluxation, or prevertebral soft tissue swelling. Bilateral C5-C6 neural foraminal narrowing. D/ / 11/06/2017 17:22:17 Lora Farris MD / silva Interpreting Provider: Lora Farris MD <Balaji Shah - Last Filed: 11/07/17 07:18> Date of Encounter: 11/06/17 Internal Medicine - H&P: HPI History of present illness: Ms. Bonilla is a 47 year old female All Systems PM: A 10-system review of systems was performed and is negative for pertinent findings except as documented above in the HPI. - Constitutional Vitals: Temp Pulse Resp BP Pulse Ox 98.3 F 81 16 110/74 95 11/07/17 07:09 11/07/17 07:09 11/07/17 07:09 11/07/17 07:09 11/07/17 07:09 Internal Med - H&P Results - Labs CBC & Chem 7: 11/07/17 00:47 11/07/17 00:47 Labs: Short CBC 11/06/17 11/07/17 Range/Units 17:37 00:47 WBC 3.6 L 3.3 L (4.3-11.1) K/mcL Hgb 11.7 10.8 L (11.5-15.4) g/dL Hct 34.2 L 31.6 L (35.3-44.9) % Plt Count 246 240 (140-400) K/mcL BMP 11/07/17 11/07/17 00:47 00:47 Sodium 138 Potassium 3.2 L 3.3 L Chloride 106 Carbon Dioxide 26 BUN 5 L Creatinine 0.59 L Glucose 94 Calcium 8.9 Cardiac Enzymes 11/06/17 11/07/17 Range/Units 18:24 00:47 Troponin I < 0.03 0.03 (< 0.04) ng/mL - Attending Attestation I have personally performed a face to face evaluation on this patient. I have reviewed and agree with the care plan provided by ANIYA Mcgovern. History and Exam by me shows: Ms. Bonilla is a 47 year old female COPD, hypertension, who recently had NSTEMI with [facility] s/p PCI presents to [facility] today with chest pain with radiation to her back and worsening shortness of breath over the last 3 days. She also c/o cough with expectoration and hoarseness of voice Gen: A, A, O x3 Chest: Diminished BS b/l, No crackles No rales Heart: S1S2 + RRR No murmurs a/p 1. Acute chest pain 2. Recent CAD s/p PCI cont heparin gtt trend on trop Card consulted 3. Acute bronchitis on empirical abx check resp viral panel
[2017-11-06] MEDS ORDERED: *HR* Metoprolol 5 MG/5 ML VIAL IVP PRN (20:07)
[2017-11-06] MEDS ORDERED: *HR* Morphine 2 MG/ML SYRINGE IVP PRN (20:27)
[2017-11-06] MEDS: Melatonin 3 MG TABLET PO SCH (21:34)
[2017-11-06] MEDS: Gabapentin 400 MG CAPSULE PO SCH (21:34)
[2017-11-06] MEDS: traZODone 50 MG TABLET PO SCH (21:35)
[2017-11-06] MEDS: Ipratropium/Albuterol Neb 3 ML IH SCH ×2 (22:44→23:03)
[2017-11-07 01:10] LABS: Hematocrit 31.6 % (35.3-44.9); Hemoglobin 10.8 g/dL (11.5-15.4); Mean Corpuscular HGB Conc 34.2 g/dL (31.6-35.5); Mean Corpuscular Hemoglobin 32.2 pg (28.0-33.3); Mean Corpuscular Volume 94.3 fL (83.0-100.0); Mean Platelet Volume 9.9 fL (9.4-12.4); Platelet Count 240 K/mcL (140-400); Red Blood Count 3.35 M/mcL (3.82-4.97); Red Cell Distribution Width 15.3 % (11.5-14.5)
[2017-11-07 01:15] LABS: INR 1.3; Prothrombin Time 13.8 Seconds (9.4-12.1)
[2017-11-07 01:18] LABS: Activated Partial Thrombo Time 48.7 Seconds (26.0-36.0)
[2017-11-07] MEDS: *HR* Heparin 5,000 UNIT/ML VIAL IVP PRN ×2 (01:42→10:33)
[2017-11-07 02:32] LABS: BUN/Creatinine Ratio 8 (6-26); Blood Urea Nitrogen 5 mg/dL (6-20); Calcium 8.9 mg/dL (8.6-10.3); Carbon Dioxide 26 mEq/L (23-29); Chloride 106 mEq/L (98-107); Glucose 94 mg/dL (70-105); Osmolality,Calculated 283 (280-300); Potassium 3.3 mEq/L (3.5-5.1); Sodium 138 mEq/L (136-145); eGFR For African Americans > 60 (> 60); eGFR For Non-African Americans > 60 (> 60)
[2017-11-07] MEDS: Ipratropium/Albuterol Neb 3 ML IH SCH ×6 (03:42→23:24)
[2017-11-07] MEDS: Nitroglycerin 1 INCH/GM PACKET TP SCH ×2 (06:23→12:30)
--- NOTE | 2017-11-07 09:17 | Electrocardiograph Report ---
[facility] Test Date: 2017-11-06 Pat Name: Judy Bonilla Department: 104 Room: 3B24 Gender: F [place] Guide: : 1970 Requested By: Shaheed Finley Order Number: [id number] Reading MD: Onur Dasilva MD Measurements Intervals [place] Rate: 71 P: 47 VT: 137 QRS: 53 QRSD: 86 T: 198 QT: 595 QTc: 618 Interpretive Statements SINUS RHYTHM ST DEVIATION AND MARKED T-WAVE ABNORMALITY, CONSIDER ANTEROLATERAL ISCHEMIA ST DEVIATION AND MODERATE T-WAVE ABNORMALITY, CONSIDER INFERIOR ISCHEMIA These T changes are present 10/24/17 Electronically Signed On 11-07-2017 9:16:12 EST by Onur Dasilva MD
[2017-11-07] MEDS: *HR* OxyCODONE/APAP 10/325 TABLET PO PRN ×2 (09:25→18:38)
[2017-11-07] MEDS: Gabapentin 400 MG CAPSULE PO SCH ×3 (09:25→21:25)
[2017-11-07] MEDS: Aspirin 81 MG TAB.CHEW PO SCH (09:25)
--- NOTE | 2017-11-07 13:43 | Cardiology Consult Note ---
<Gm Maguire - Last Filed: 11/07/17 13:39> Assessment and Plan (1) Chest pain Current Visit: No Status: Acute Atypical chest pain symptoms. Chest pain with deep inspiration and on palpation. EKG shows SR with no acute ST changes. Troponin negative x3. CTA negative for PE or dissection. Check limited TTE. IF no acute change no further testing recommended at this time. Noted to have b/p elevation up to 157/100, now improving. Potassium 2.8. Replacement given. Qualifiers: Chest pain type: unspecified Qualified Code(s): R07.9 - Chest pain, unspecified (2) CAD (coronary artery disease) Current Visit: Yes Status: Acute S/p recent PCI with ARIANA and PTCA to the mLAD and POBA to the 1st Dx artery. Missed doses of brilinta after procedure. Noted to not be taking any medications that were prescribed. She reports she is now compliant with medications. Continue asa, plavix, and statin. Reports bb held due to low blood pressure. Agree with restarting. Qualifiers: Coronary Disease-Associated Artery/Lesion type: [place] artery [place] vs. transplanted heart: [place] heart Associated angina: without angina Qualified Code(s): I25.10 - Atherosclerotic heart disease of [place] coronary artery without angina pectoris (3) HTN (hypertension) Current Visit: Yes Status: Chronic B/p up to 150/110. Metoprolol added back to regimen. B/p now acceptable. Qualifiers: Hypertension type: essential hypertension Qualified Code(s): I10 - Essential (primary) hypertension Discussion w patient/family: The assessment and plan as outlined above was discussed with the patient and/or family members who expressed understanding and agreement. All questions were answered. Thank you for involving us in the care of your patient. Please call with any questions. History of Present Illness Consult date: 11/07/17 Requesting physician: aBlaji Shah Consult reason: Chest pain Chief complaint: Chest pain History of present illness: Ms. Bonilla is a 47 year old female with a past medical history of CAD s/p recent PCI,nicotine abuse, and HTN, who presented with midsternal chest pain radiating to her back. Her pain was similar but not as severe as to what she felt prior to previous stent. It was noted she continued to have pleuritic chest pain after her recent LHC. She reports BLL pneumonia and ARDS requiring intubation last June. Since that time she has pain and tenderness with deep inspiration. Her pain is now resolved except for pain with palpation. She denies SOB. She is noted to have elevated blood pressure up to 175/100. States that her metoprolol was discontinued one week ago for hypotension. She denies difficulty taking medications. It is noted that after her LHC and PCI to the mLAD and POBA to the 1st Dx on 10/15/17 she missed several doses of brilinta. She was evaluated in the office for this and loaded on plavix . She denies missed doses of medications since that time. Past Med Surg Social Fam HX - Past Medical History Attestation: Yes The following information was validated with the patient. Medical history: COPD, coronary artery disease, hypertension, other Psychiatric history: anxiety, depression, PTSD - Past Surgical History Surgical History: cholecystectomy, hysterectomy, other - Social History Smoking Status: Light tobacco smoker Smokeless Tobacco Status: No Alcohol use: none Drug use: none - Family History Mother Living Status: Still Living Hx Family Cardiac Disorders: Yes (cabg, chf, htn) Hx Family Respiratory Disorders: Yes (emphysema) Hx Family Endocrine Disorder: Yes (dm) Father Name: Myles Bonilla Living Status: Still Living Hx Family Cardiac Disorders: Yes (heart disease) Medications and Allergies Albuterol Sulfate [Ventolin Hfa] 2 puff IH Q4-6H PRN #1 hfa.aer.ad 09/06/17 [Rx] Trazodone HCl 100 mg PO HS 09/11/17 [History] hydrOXYzine HCl [Hydroxyzine HCl] 25 mg PO BID PRN 09/11/17 [History] Buspirone HCl [Buspar] 10 mg PO TID 10/15/17 [History] Duloxetine HCl [Cymbalta] 60 mg PO DAILY 10/15/17 [History] Melatonin/Pyridoxine HCl (B6) [Melatonin 3 mg Tablet] 3 mg PO HS 10/15/17 [ History] Omeprazole [PriLOSEC] 40 mg PO DAILY 10/15/17 [History] Oxycodone HCl/Acetaminophen [Percocet 10-325 mg Tablet] 1 tab PO TID PRN [History] Tizanidine HCl [Zanaflex] 4 mg PO TID PRN 10/15/17 [History] Aspirin 81 mg PO DAILY #30 tab.chew 10/18/17 [Rx] Nitroglycerin 0.4 mg SL Q5MIN PRN #30 tab.subl 10/18/17 [Rx] Atorvastatin Calcium [Lipitor] 20 mg PO HS 11/06/17 [History] Clopidogrel [Plavix] 75 mg PO DAILY 11/06/17 [History] Gabapentin [Neurontin] 800 mg PO TID 11/06/17 [History] SUMAtriptan Succinate [Imitrex] 100 mg PO Q2H PRN MDD 200 mg 11/06/17 [History] 3 Allergy/AdvReac Type Severity Reaction Status Date / Time morphine Allergy Itching Verified 10/14/17 20:00 All Systems Review: A 10-system review of systems was performed and is negative for pertinent findings except as documented above in the HPI. Physical Examination Vital Signs, Last 4 Hours Temp Pulse Resp BP Pulse Ox 11/07/17 11:12 97.9 F 71 18 129/83 97 General: Conversant, No Apparent Distress HEENT: Atraumatic, Normocephaly, Mucus Membranes Moist Neck: No JVD, Normal carotid pulses Cardiac: Reg Rate and Rhythm, Normal S1 and S2, No Murmur Lungs: Normal Breath Sounds, No Wheeze, Rales, Rhonchi Neuro: Alert and responsive, No focal deficits noted Abdomen: Soft, Non-Tender Skin: No rashes noted on visualized skin Musculoskeletal: Other (Reproducible chest wall pain. ) Extremities: No Clubbing, No Cyanosis, No Edema, Normal Pulses Results 11/07/17 00:47 11/07/17 00:47 Lab Results 11/06/17 11/06/17 11/06/17 17:37 17:37 18:24 WBC 3.6 L Hgb 11.7 Hct 34.2 L Plt Count 246 INR 1.3 APTT 34.6 Sodium Potassium Chloride Carbon Dioxide BUN Creatinine Glucose Calcium Troponin I < 0.03 11/07/17 11/07/17 11/07/17 00:47 00:47 00:47 WBC Hgb Hct Plt Count INR 1.3 APTT 48.7 H Sodium Potassium 3.2 L Chloride Carbon Dioxide BUN Creatinine Glucose Calcium Troponin I 0.03 11/07/17 11/07/17 11/07/17 00:47 00:47 06:00 WBC 3.3 L Hgb 10.8 L Hct 31.6 L Plt Count 240 INR APTT Sodium 138 Potassium 3.3 L Chloride 106 Carbon Dioxide 26 BUN 5 L Creatinine 0.59 L Glucose 94 Calcium 8.9 Troponin I 0.03 11/07/17 08:46 WBC Hgb Hct Plt Count INR APTT 56.9 H Sodium Potassium Chloride Carbon Dioxide BUN Creatinine Glucose Calcium Troponin I - Imaging and Cardiology Echo: report reviewed Cardiac cath: report reviewed Consult Discharge Plan - Plan Referrals: Joey Rg DO [Primary Care Provider] - 11/29/17 9:30 am <Rama Kirkland - Last Filed: 11/07/17 16:43> Date of Encounter: 11/07/17 Time of Encounter: 08:00 - Attending Attestation I examined this patient and my medical decision-making was reviewed with the BIG DATA HADOOP DEVELOPER. I agree with the documented findings, disposition and treatment plan as described. Patient presents with atypical chest pain, pleuritic symptoms that have been present since her hospitalization in June 2017 when she was diagnosed with ARDS. Thus far, cardiac testing has been negative. Troponins negative, no new ECG changes, echo with normal LVEF, CTA negative for PE. She denies missing any doses of plavix. Only notable finding is elevated BP on admission - metoprolol added back to her regimen. No further cardiac testing is indicated. Symptoms may warrant a Pulmonary evaluation. Will sign off. Recommend outpatient follow up with her primary Print Binding And Finishing Worker. Assessment and Plan Discussion w patient/family: The assessment and plan as outlined above was discussed with the patient and/or family members who expressed understanding and agreement. All questions were answered. Thank you for involving us in the care of your patient. Please call with any questions. History of Present Illness History of present illness: Ms. Bonilla is a 47 year old female All Systems Review: A 10-system review of systems was performed and is negative for pertinent findings except as documented above in the HPI. Physical Examination Vital Signs, Last 4 Hours Temp Pulse Resp BP Pulse Ox 11/07/17 15:26 97.7 F 63 18 113/70 96 Results 11/07/17 00:47 11/07/17 00:47 Lab Results 11/06/17 11/06/17 11/06/17 17:37 17:37 18:24 WBC 3.6 L Hgb 11.7 Hct 34.2 L Plt Count 246 INR 1.3 APTT 34.6 Sodium Potassium Chloride Carbon Dioxide BUN Creatinine Glucose Calcium Troponin I < 0.03 11/07/17 11/07/17 11/07/17 00:47 00:47 00:47 WBC Hgb Hct Plt Count INR 1.3 APTT 48.7 H Sodium Potassium 3.2 L Chloride Carbon Dioxide BUN Creatinine Glucose Calcium Troponin I 0.03 11/07/17 11/07/17 11/07/17 00:47 00:47 06:00 WBC 3.3 L Hgb 10.8 L Hct 31.6 L Plt Count 240 INR APTT Sodium 138 Potassium 3.3 L Chloride 106 Carbon Dioxide 26 BUN 5 L Creatinine 0.59 L Glucose 94 Calcium 8.9 Troponin I 0.03 11/07/17 08:46 WBC Hgb Hct Plt Count INR APTT 56.9 H Sodium Potassium Chloride Carbon Dioxide BUN Creatinine Glucose Calcium Troponin I
--- NOTE | 2017-11-07 17:23 | Internal Med Progress Note ---
Date of Encounter: 11/07/17 Time of Encounter: 09:35 - Assessment and plan (1) CAD (coronary artery disease) Current Visit: Yes Status: Acute Assessment and plan: With recent PCI with ARIANA and PTCA to the mid LAD and PUVA to the first diagonal artery. Patient reports that she did miss doses of her Brilinta after her procedure and was not taking any medications that were prescribed. She reports that now she is adherent to her medication regimen. Continue aspirin, Plavix, statin. Continue beta lopez. Qualifiers: Coronary Disease-Associated Artery/Lesion type: [place] artery [place] vs. transplanted heart: [place] heart Associated angina: without angina Qualified Code(s): I25.10 - Atherosclerotic heart disease of [place] coronary artery without angina pectoris (2) COPD with acute exacerbation Current Visit: Yes Status: Acute Assessment and plan: Mild exacerbation. Patient with wheezing posteriorly, she was likely has a viral illness with hoarse voice and productive cough. She has no fever or leukocytosis, no need for antibiotics at this time. She has faint wheezing in posterior bases. She is not requiring any supplemental oxygen yet. We will continue to monitor, oxygen as needed to titrate to maintain sats greater than 92%. Monitor labs and patient condition and vital signs Add Claritin and Flonase, Mucinex for viral symptoms. (3) DVT prophylaxis Current Visit: Yes Status: Acute Assessment and plan: Patient is on a heparin drip. 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 She denies any chest pain since last night. Patient reports recent illness with productive cough horse voice for the last 2 days. Most likely viral in nature. Will add Claritin and Flonase, patient is agreeable. He denies any headache or blurred vision, no dizziness. She denies chest pain since last night, no shortness of breath. She denies any nausea vomiting diarrhea or abdominal pain. - Constitutional Vitals: Temp Pulse Resp BP Pulse Ox 97.7 F 63 18 113/70 96 11/07/17 15:26 11/07/17 15:26 11/07/17 15:26 11/07/17 15:26 11/07/17 15:26 General appearance: Present: mild distress, A&O X 3, pleasant, no acute distress , answers questions appropriately - Head Head exam: Present: atraumatic, normal inspection, normocephalic - Eye Eye exam: Present: normal appearance, conjuntiva pink, sclera anicteric - Neck Neck exam general surgery: Present: supple, trachea midline. Absent: lymphadenopathy, tenderness - Respiratory Respiratory exam: Present: chest wall tenderness, CTAB. Absent: accessory muscle use, rales, rhonchi, wheezes - Cardiovascular Cardiovascular exam: Present: RRR, +S1, +S2. Absent: diastolic murmur, gallop, rubs, systolic murmur - GI/Abdominal GI/Abdominal exam: Present: normal bowel sounds, soft. Absent: distended, hepatomegaly, tenderness - Extremities Exam Extremities exam: Present: normal capillary refill, normal inspection, warm, radial pulses palpable and symmetrical. Absent: calf tenderness, cyanotic, joint swelling, pedal edema, tenderness - Neurological Exam Neurological exam: Present: alert, CN II-XII intact, oriented X3, no focal deficits. Absent: facial droop, speech deficit - Skin Skin exam: Present: dry, intact, normal color, warm. Absent: rash Internal Medicine: Result - Labs CBC & Chem 7: 11/07/17 00:47 11/07/17 00:47 Labs: Short CBC 11/06/17 11/07/17 Range/Units 17:37 00:47 WBC 3.6 L 3.3 L (4.3-11.1) K/mcL Hgb 11.7 10.8 L (11.5-15.4) g/dL Hct 34.2 L 31.6 L (35.3-44.9) % Plt Count 246 240 (140-400) K/mcL BMP 11/07/17 11/07/17 00:47 00:47 Sodium 138 Potassium 3.2 L 3.3 L Chloride 106 Carbon Dioxide 26 BUN 5 L Creatinine 0.59 L Glucose 94 Calcium 8.9 Cardiac Enzymes 11/06/17 11/07/17 11/07/17 Range/Units 18:24 00:47 06:00 Troponin I < 0.03 0.03 0.03 (< 0.04) ng/mL - ABG Interpretation ABG results: PT/INR, D-dimer PT 13.8 Seconds (9.4-12.1) H 11/07/17 00:47 - Impressions Impressions Echocardiogram 11/07/17 07:00 Impressions: LVEF 60%. Normal LV chamber size, wall thickness and function. Normal right ventricular structure and function. No evidence of pulmonary hypertension. No significant valvular dysfunction. Previously described segmental wall motion abnormalities have normalized. Left Ventricular Wall Motion: Rest Echo Findings All wall segments showed normal motion. Findings: Study Quality * Technically adequate exam. ECG Findings * Normal sinus rhythm. Left Ventricle * LVEF 60%. * Normal LV chamber size, wall thickness and function. Right Ventricle * Normal right ventricular structure and function. Left Atrium * Normal left atrial size. Right Atrium * Normal right atrial size. Interatrial Septum * No evidence of PFO by color Doppler. Aortic Valve * Aortic valve not well visualized. * No aortic regurgitation. * No aortic stenosis. Mitral Valve * Normal mitral valve structure and function. * No mitral regurgitation. * No mitral stenosis. Tricuspid Valve * Normal tricuspid valve structure and function. * Trace tricuspid regurgitation. * No evidence of pulmonary hypertension. Pulmonic Valve * Normal pulmonic valve structure and function. * No pulmonic regurgitation. Aorta * Normally sized aortic root. Pericardium * The pericardium appears normal. IVC * Normal IVC dimensions and inspiratory collapse. Pulmonary Artery * Normal visualized portions of the main pulmonary artery. Consult Discharge Plan - Plan Referrals: Joey Rg DO [Primary Care Provider] - 11/29/17 9:30 am
--- NOTE | 2017-11-07 18:35 | Electrocardiograph Report ---
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
--- NOTE | 2017-11-07 18:36 | Electrocardiograph Report ---
[place] [address] Test Date: 2017-11-06 Pat Name: Judy Bonilla Department: 113 Room: 3B24 Gender: F Switching Operator: : 1970 Requested By: Deep Mcgovern Order Number: [id number] Reading MD: Jennifer Cerna Measurements Intervals [place] Rate: 97 P: 37 AL: 127 QRS: 38 QRSD: 85 T: 218 QT: 447 QTc: 502 Interpretive Statements SINUS RHYTHM ST DEVIATION AND MARKED T-WAVE ABNORMALITY, CONSIDER ANTEROLATERAL ISCHEMIA ST DEVIATION AND MODERATE T-WAVE ABNORMALITY, CONSIDER INFERIOR ISCHEMIA Electronically Signed On 11-07-2017 18:35:26 EST by Jennifer Cerna
[2017-11-07] MEDS: Loratadine 10 MG TABLET PO SCH (18:38)
[2017-11-07] MEDS: traZODone 50 MG TABLET PO SCH (21:23)
[2017-11-07] MEDS: Melatonin 3 MG TABLET PO SCH (21:25)
[2017-11-07] MEDS: Fluticasone Propionate Nasal 50 MCG/SPRAY BOTTLE NS SCH (22:12)
[2017-11-08] MEDS: *HR* OxyCODONE/APAP 10/325 TABLET PO PRN ×2 (02:22→10:53)
[2017-11-08] MEDS: Ipratropium/Albuterol Neb 3 ML IH SCH ×3 (03:53→11:37)
[2017-11-08 05:25] LABS: Basophils % 0.4 %; Eosinophils # 0.2 K/mcL (0.0-0.6); Eosinophils % 6.8 %; Hematocrit 29.4 % (35.3-44.9); Hemoglobin 9.7 g/dL (11.5-15.4); Immature Granulocytes % 0.4 % (0-4); Lymphocytes % 40.7 %; Mean Corpuscular Hemoglobin 32.1 pg (28.0-33.3); Mean Corpuscular Volume 97.4 fL (83.0-100.0); Mean Platelet Volume 9.7 fL (9.4-12.4); Monocytes # 0.3 K/mcL (0.0-1.3); Neutrophils # 0.9 K/mcL (1.6-8.9); Platelet Count 178 K/mcL (140-400); Red Blood Count 3.02 M/mcL (3.82-4.97); Red Cell Distribution Width 15.8 % (11.5-14.5); Segmented Neutrophils % 37.7 %
[2017-11-08] MEDS: Nitroglycerin 1 INCH/GM PACKET TP SCH (05:27)
[2017-11-08 05:48] LABS: BUN/Creatinine Ratio 16 (6-26); Blood Urea Nitrogen 11 mg/dL (6-20); Calcium 8.7 mg/dL (8.6-10.3); Carbon Dioxide 28 mEq/L (23-29); Chloride 108 mEq/L (98-107); Glucose 80 mg/dL (70-105); Osmolality,Calculated 288 (280-300); Potassium 3.3 mEq/L (3.5-5.1); Sodium 140 mEq/L (136-145); eGFR For African Americans > 60 (> 60); eGFR For Non-African Americans > 60 (> 60)
[2017-11-08] MEDS: Aspirin 81 MG TAB.CHEW PO SCH (08:32)
[2017-11-08] MEDS: Gabapentin 400 MG CAPSULE PO SCH (08:32)
[2017-11-08 08:33] LABS: % Iron Saturation 8 % (15-50); Iron 25 mcg/dL (50-170); Transferrin 221 mg/dL (203-362)
[2017-11-08] MEDS: Loratadine 10 MG TABLET PO SCH (08:33)
[2017-11-08] MEDS: Fluticasone Propionate Nasal 50 MCG/SPRAY BOTTLE NS SCH (08:36)
[2017-11-08 09:52] LABS: Folate 6.2 ng/mL (3.0-16.0)
--- NOTE | 2017-11-08 10:37 | Discharge Summary ---
Date of Encounter: 11/08/17 Time of Encounter: 08:45 - Discharge Diagnosis (1) CAD (coronary artery disease) Priority: Primary Status: Acute Comments: With recent (2 weeks ago) PCI with ARIANA and PTCA to the mid LAD and PUVA to the first diagonal artery. Patient reports that she did miss doses of her Brilinta after her procedure and was not taking any medications that were prescribed. She reports that now she is adherent to her medication regimen. Continue aspirin, Plavix, statin, BB. Qualifiers: Coronary Disease-Associated Artery/Lesion type: [place] artery [place] vs. transplanted heart: [place] heart Associated angina: without angina Qualified Code(s): I25.10 - Atherosclerotic heart disease of [place] coronary artery without angina pectoris (2) COPD with acute exacerbation Priority: Secondary Status: Acute Comments: Mild exacerbation. Patient with wheezing posteriorly, which has resolved today , she was likely has a viral illness with hoarse voice and productive cough. She has no fever, chills, or leukocytosis, no need for antibiotics at this time. She has faint wheezing in posterior bases. She is not requiring any supplemental oxygen. Add Claritin and Flonase, Mucinex for viral symptoms. (3) DVT prophylaxis Priority: Secondary Status: Acute Comments: Pt was on Heparin GTT, has been d/c'd. Pt is ambulatory. (4) Diabetes mellitus Priority: Secondary Status: Chronic Comments: Chronic. A1c 4.8 in July,. Continue diet and accucheck regimen at home. 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 Will send pt home with supplements to take daily. She will need to follow up with PCP for repeat labs. (6) Unstable angina Priority: Secondary Status: Chronic Comments: Pt denies chest pain since 2 days ago. Recent LHC and PTCA with ARIANA to mid LAD approximately 2 weeks ago. Pt was non-adherent to medication regimen after LHC. Pt has been seen by cardiology and they have signed off, no further testing required at this time. She will follow up in the office. Continue ASA, Plavix, BB, statin. (7) Elevated brain natriuretic peptide (BNP) level Priority: Secondary Status: Acute Comments: Most likely remains elevated from recent LHC and PTCA. Pt has no chest pain, SOB , N/v/diaphoresis. Continue home medications as stated above. (8) Iron deficiency anemia Priority: Secondary Status: Acute Comments: Iron 25, % saturation 8. Pt has been started on Ferrous Sulfate 325mg po BID. She will need to follow up with PCP for continued monitoring. Most likely from poor po intake. Qualifiers: Iron deficiency anemia type: unspecified iron deficiency Qualified Code(s) : D50.9 - Iron deficiency anemia, unspecified (9) Neutropenia Priority: Secondary Status: Acute Comments: Pt with neutropenia, most likely related to current viral illness. 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 Pt should follow up with PCP for redraw, if still neutropenic, pt should follow with oncology. Qualifiers: Neutropenia type: unspecified Qualified Code(s): D70.9 - Neutropenia, unspecified - Discharge Medications Prescriptions: Aspirin 81 mg PO DAILY #30 tab.chew Atorvastatin Calcium [Lipitor] 20 mg PO HS #30 tablet Ferrous Sulfate 325 mg PO BIDWM #60 tablet Fluticasone Propionate Nasal [Flonase] 50 mcg NS DAILY #1 bottle Loratadine [Claritin] 10 mg PO DAILY #30 capsule Metoprolol [Lopressor] 12.5 mg PO BID #15 tablet Potassium Chloride 20 meq PO BID #8 tab.er.prt Home Medications: Albuterol Sulfate [Ventolin Hfa] 2 puff IH Q4-6H PRN #1 hfa.aer.ad 09/06/17 [Rx] Trazodone HCl 100 mg PO HS 09/11/17 [History] hydrOXYzine HCl [Hydroxyzine HCl] 25 mg PO BID PRN 09/11/17 [History] Buspirone HCl [Buspar] 10 mg PO TID 10/15/17 [History] Duloxetine HCl [Cymbalta] 60 mg PO DAILY 10/15/17 [History] Melatonin/Pyridoxine HCl (B6) [Melatonin 3 mg Tablet] 3 mg PO HS 10/15/17 [ History] Omeprazole [PriLOSEC] 40 mg PO DAILY 10/15/17 [History] Oxycodone HCl/Acetaminophen [Percocet 10-325 mg Tablet] 1 tab PO TID PRN [History] Tizanidine HCl [Zanaflex] 4 mg PO TID PRN 10/15/17 [History] Nitroglycerin 0.4 mg SL Q5MIN PRN #30 tab.subl 10/18/17 [Rx] Clopidogrel [Plavix] 75 mg PO DAILY 11/06/17 [History] Gabapentin [Neurontin] 800 mg PO TID 11/06/17 [History] SUMAtriptan Succinate [Imitrex] 100 mg PO Q2H PRN MDD 200 mg 11/06/17 [History] Aspirin 81 mg PO DAILY #30 tab.chew 11/08/17 [Rx] Atorvastatin Calcium [Lipitor] 20 mg PO HS #30 tablet 11/08/17 [Rx] Ferrous Sulfate 325 mg PO BIDWM #60 tablet 11/08/17 [Rx] Fluticasone Propionate Nasal [Flonase] 50 mcg NS DAILY #1 bottle 11/08/17 [Rx] GuaiFENesin ER [Mucinex] 600 mg PO BID tbbp.12hr 11/08/17 [Rx] Loratadine [Claritin] 10 mg PO DAILY #30 capsule 11/08/17 [Rx] Metoprolol [Lopressor] 12.5 mg PO BID #15 tablet 11/08/17 [Rx] Potassium Chloride 20 meq PO BID #8 tab.er.prt 11/08/17 [Rx] Allergies/Adverse Reactions: 3 Allergy/AdvReac Type Severity Reaction Status Date / Time morphine Allergy Itching Verified 10/14/17 20:00 Procedures/tests Complete & Pending: Procedures Performed prior 72 hours Category Date Time Status EKG [ECG 12 lead ECG] [ECG] Stat Y 11/06/17 18:21 Completed EV echocardiogram Routine Y 11/07/17 07:00 Completed Date of admission: 11/06/17 16:59 Primary care physician: Joey Rg DO Discharging clinician: Tona Matthew Anticipated date of discharge: 11/08/17 - Patient Status Disposition: Home, Self-Care Condition: Good Functional capacity at discharge: independent ambulation Overall status at discharge: patient is progressing back to baseline - Discharge Instructions Follow Up With: Joey Rg DO [Primary Care Provider] - 11/29/17 9:30 am Additional Instructions: Please follow up with your PCP for a recheck and to discuss your neutropenia and anemia. Take your medications as directed. Return to the ER as needed for any other problems or concerns, or if your symptoms return or worsen. Resume your other medications, diet, and activity as tolerated. Increase your fluid intake and take a stool softener as iron supplements can be somewhat constipating. - Diet and Activity Activity: increase activity as tolerated Diet: advance to your usual diet Hospital course: Ms. Bonilla is a 47 year old female - Time Spent with Patient Total time spent providing and/or coordinating discharge services: - Constitutional Vitals: Temp Pulse Resp BP Pulse Ox 97.7 F 71 16 128/75 96 11/08/17 07:19 11/08/17 07:19 11/08/17 07:19 11/08/17 07:19 11/08/17 07:19 General appearance: Present: mild distress, A&O X 3, pleasant, no acute distress , answers questions appropriately - Head Head exam: Present: atraumatic, normal inspection, normocephalic - Eye Eye exam: Present: normal appearance, conjuntiva pink, sclera anicteric - Neck Neck exam general surgery: Present: normal inspection, supple, trachea midline. Absent: lymphadenopathy, tenderness - Respiratory Respiratory exam: Present: decreased breath sounds, CTAB. Absent: accessory muscle use, rales, respiratory distress, rhonchi, wheezes - Cardiovascular Cardiovascular exam: Present: RRR, +S1, +S2. Absent: diastolic murmur, gallop, rubs, systolic murmur - GI/Abdominal GI/Abdominal exam: Present: normal bowel sounds, soft. Absent: distended, hepatomegaly, tenderness - Extremities Exam Extremities exam: Present: normal capillary refill, normal inspection, warm, radial pulses palpable and symmetrical. Absent: calf tenderness, cyanotic, pedal edema, tenderness - Neurological Exam Neurological exam: Present: alert, oriented X3, no focal deficits. Absent: facial droop, speech deficit - Skin Skin exam: Present: dry, intact, normal color, warm. Absent: rash
[2017-11-08 11:52] VITALS: BP 118/77
== END 2017-11-08 13:14 | disposition home or self-care (01) ==
LOC: 3BNU 13:58 → EMEROO 13:58 → 3BNU 17:19
PROVIDERS: ADMIT Student in an Organized Health Care Education/Training Program; ATTEND Registered Nurse

== ENCOUNTER 2018-01-29 11:50 | Observation (INO) ==
[2018-01-29] MEDS ORDERED: Aspirin 81 MG TAB.CHEW PO ONE (12:11)
[2018-01-29] MEDS ORDERED: 0.9 % Sodium Chloride 500 ML IVC ONE (12:11)
[2018-01-29] MEDS ORDERED: Nitroglycerin 0.4 MG TAB.SUBL SL ONE (12:11)
--- NOTE | 2018-01-29 12:16 | Emergency Department Note ---
Disposition Clinical Impression: Chest pain Qualifiers: Chest pain type: unspecified Qualified Code(s): R07.9 - Chest pain, unspecified Disposition: Admitted As Inpatient Condition: Fair Time of Disposition: 18:57 Chest Pain HPI - General Chief Complaint: ED Chest Pain Stated Complaint: CP Time Seen by Provider: 01/29/18 12:02 Vital Signs Reviewed: Yes Nursing Notes Reviewed: Yes - History of Present Illness HPI Narrative: 47-year-old female complains of severe chest pain is started one hour ago. History of recent DC 2 months ago. Patient states that the pain came on suddenly and she sat down. She was ready in the hospital visiting her boyfriend on the third floor but to be elevated. Patient states that this is the same pattern of her anginal equivalent but more severe. Patient states the pain is left-sided nonreproducible, radiation to arms and shoulder. Severity scale (1-10): 10 - Related Data Home Medications Medication Instructions Recorded Confirmed hydrOXYzine HCl [Hydroxyzine HCl] 25 mg PO BID PRN 09/11/17 01/29/18 Oxycodone HCl/Acetaminophen 1 tab PO TID PRN 10/15/17 01/29/18 [Percocet 10-325 mg Tablet] Tizanidine HCl [Zanaflex] 4 mg PO TID PRN 10/15/17 01/29/18 Clopidogrel [Plavix] 75 mg PO DAILY 11/06/17 01/29/18 Gabapentin [Neurontin] 800 mg PO TID 11/06/17 01/29/18 Amitriptyline [Elavil] 25 mg PO HS 01/29/18 01/29/18 Amlodipine Besylate 2.5 mg PO QPM 01/29/18 01/29/18 Tiotropium Br/Olodaterol HCl 2 puff IH DAILY 01/29/18 01/29/18 [Stiolto Respimat Inhal [place]] amLODIPine [Norvasc] 5 mg PO QAM 01/29/18 01/29/18 Previous Rx's Medication Instructions Recorded Albuterol Sulfate [Ventolin Hfa] 2 puff IH Q4-6H PRN #1 hfa.aer.ad 09/06/17 Nitroglycerin 0.4 mg SL Q5MIN PRN #30 tab.subl 10/18/17 Aspirin 81 mg PO DAILY #30 tab.chew 11/08/17 Atorvastatin Calcium [Lipitor] 20 mg PO HS #30 tablet 11/08/17 Fluticasone Propionate Nasal 50 mcg NS DAILY #1 bottle 11/08/17 [Flonase] Allergies Allergy/AdvReac Type Severity Reaction Status Date / Time morphine Allergy Itching Verified 10/14/17 20:00 All systems ED: reviewed and negative except as stated. Review of Systems: As Per HPI Constitutional: Denies: fever, chills, weakness ENT ED: Denies: congestion Cardiovascular: Reports: chest pain. Denies: palpitations, dyspnea on exertion Respiratory: Reports: dyspnea. Denies: cough Gastrointestinal: Denies: abdominal pain, nausea, vomiting Musculoskeletal: Denies: back pain, neck pain Neurological: Denies: headache Chest Pain PMH - Past Medical History Medical history: Reports: COPD, coronary artery disease, hypertension, myocardial infarction, other Surgical history: Reports: cholecystectomy, hysterectomy, other Psychiatric history: Reports: anxiety, depression, PTSD DOCUMENT COORDINATOR history: Reports: no DOCUMENT COORDINATOR history - Social History Smoking Status: Current every day smoker Alcohol use: Reports: none Drug use: Reports: none Physical Exam Vital Signs Temperature 98.1 F 01/29/18 12:03 Pulse Rate 105 01/29/18 12:03 Respiratory Rate 25 01/29/18 12:03 Blood Pressure 188/123 01/29/18 12:03 O2 Sat by Pulse Oximetry 99 01/29/18 12:03 Temperature 98.1 F 01/29/18 12:03 Pulse Rate 105 01/29/18 12:03 Respiratory Rate 25 01/29/18 12:03 Blood Pressure 188/123 01/29/18 12:03 O2 Sat by Pulse Oximetry 100 01/29/18 12:12 Oxygen Delivery Oxygen Delivery Nasal Cannula CONSTITUTIONAL: Well-appearing; well-nourished; A&O X 3, in acute distress and panting with tachypnea at a rate of 25 breaths for minute but nondiaphoretic. Patient is afebrile, hypertensive at 188/123, tachycardic at 10 5 bpm, O2 sat 99 % on room air. HEAD: Normocephalic; atraumatic EYES: PERRL, no scleral icterus NOSE: The nose is normal in appearance without rhinorrhea NECK: No JVD or distended neck veins RESP: Normal chest excursion with respiration; breath sounds clear and equal bilaterally; no wheezes, rhonchi, or rales CARD: Regular rhythm, without murmurs, rub or gallop ABD: Non-distended; non-tender, soft, without rigidity, rebound or guarding,no pulsatile mass CHEST: No pain with palpation SKIN: Normal for age and race; warm and dry without diaphoresis ; no apparent lesions EXTREMITIES: Pulses are 2 plus and equal times 4 extremities, no peripheral edema or calf muscle pain - General General appearance: alert, in no apparent distress Course - Reevaluation(s) Reevaluation #1: First dose of nitroglycerin sublingual administered with no change in pain. Time: 12:30 Reevaluation #2: Patient's troponin is negative. Pain was reduced to 7/10 with 3 nitros SL. Nitro paste ordered, and 80 mcg of fentanyl Time: 13:03 Reevaluation #3: labetolol ordered for HTN. Vital Signs Temperature 98.1 F 01/29/18 12:03 Pulse Rate 105 01/29/18 12:03 Respiratory Rate 25 01/29/18 12:03 Blood Pressure 188/123 01/29/18 12:03 O2 Sat by Pulse Oximetry 99 01/29/18 12:03 Temperature 98.2 F 01/29/18 18:35 Pulse Rate 74 01/29/18 18:35 Respiratory Rate 15 01/29/18 18:35 Blood Pressure 154/97 01/29/18 18:35 O2 Sat by Pulse Oximetry 97 01/29/18 18:35 Oxygen Delivery Oxygen Delivery Nasal Cannula Chest Pain - [facility] Narrative Medical decision making narrative: ACS/DC, PE, Araceli syndrome. Patient's EKG was mildly ischemic in lateral leads, but this EKG was much improved from her previous. Patient's chest x-ray showed no clinical abnormalities. Patient's lab work was negative for any elevation of troponin or other clinically relevant lab abnormalities. However, patient continued to be in pain and pain was resistant to nitroglycerin trial, patient was then given one is Nitropaste as well as 80 g of fentanyl IV. The fentanyl did help for short time, but the patient's pain started to increase just before she was sent to her inpatient bed. IV normal saline was also initiated. Patient has a heart score of 6 and admission is highly recommended. Patient understands agrees to treatment plan for admission and trending of troponins with cardiology follow-up. Dr. Rodriguez the hospitalist has accepted patient for admission to telemetry bed. - Lab Data Lab results reviewed: Yes I reviewed the patient's lab results. Lab results narrative: Short CBC 01/29/18 01/29/18 Range/Units 15:25 12:07 WBC 7.0 6.3 (4.3-11.1) K/mcL Hgb 12.5 D 14.0 (11.5-15.4) g/dL Hct 37.6 41.2 (35.3-44.9) % Plt Count 210 222 (140-400) K/mcL Neutrophils # 4.2 (1.6-8.9) K/mcL BMP 01/29/18 Range/Units 12:07 Sodium 141 (136-145) mEq/L Potassium 3.6 (3.5-5.1) mEq/L Chloride 109 H (98-107) mEq/L Carbon Dioxide 24 (23-29) mEq/L BUN 4 L (6-20) mg/dL Creatinine 0.69 (0.60-1.20) mg/dL Glucose 94 (70-105) mg/dL Calcium 9.8 (8.6-10.3) mg/dL Cardiac Enzymes 01/29/18 01/29/18 Range/Units 15:25 12:07 Troponin I < 0.03 < 0.03 (< 0.04) ng/mL Result diagrams: 01/29/18 15:25 01/29/18 12:07 Lab Results 01/29/18 01/29/18 01/29/18 Range/Units 12:07 12:07 12:07 WBC 6.3 (4.3-11.1) K/mcL RBC 4.54 (3.82-4.97) M/mcL Hgb 14.0 (11.5-15.4) g/dL Hct 41.2 (35.3-44.9) % MCV 90.7 (83.0-100.0) fL MCH 30.8 (28.0-33.3) pg MCHC 34.0 (31.6-35.5) g/dL RDW 12.9 (11.5-14.5) % Plt Count 222 (140-400) K/mcL MPV 10.4 (9.4-12.4) fL Immature Gran % 0.2 (0-4) % Seg Neutrophils % 66.6 % Lymphocytes % 25.2 % Monocytes % 4.6 % Eosinophils % 2.9 % Basophils % 0.5 % Neutrophils # 4.2 (1.6-8.9) K/mcL Lymphocytes # 1.6 (0.6-4.6) K/mcL Monocytes # 0.3 (0.0-1.3) K/mcL Eosinophils # 0.2 (0.0-0.6) K/mcL Basophils # 0.0 (0.0-0.2) K/mcL PT 12.3 H (9.4-12.1) Seconds INR 1.1 APTT 29.3 (26.0-36.0) Seconds Sodium 141 (136-145) mEq/L Potassium 3.6 (3.5-5.1) mEq/L Chloride 109 H (98-107) mEq/L Carbon Dioxide 24 (23-29) mEq/L BUN 4 L (6-20) mg/dL Creatinine 0.69 (0.60-1.20) mg/dL Est GFR ( Amer) > 60 (> 60) Est GFR (Non-Af Amer) > 60 (> 60) BUN/Creatinine Ratio 6 (6-26) Glucose 94 (70-105) mg/dL Calculated Osmolality 289 (280-300) Calcium 9.8 (8.6-10.3) mg/dL Troponin I < 0.03 (< 0.04) ng/mL - Radiology Data Radiology results reviewed: Yes I reviewed the patient's radiology results. Chest X-Ray 01/29/18 12:11 IMPRESSION: No acute abnormality. D/ / 01/29/2018 14:29:23 Demetris Williamson MD / joann Interpreting Provider: Demetris Williamson MD - EKG Data EKG attestation: Yes I reviewed and interpreted this EKG. EKG results narrative: EKG taken 01/29/2018 at 1200 hrs. shows a sinus rhythm at a rate of 85 bpm with no acute ST elevations in any leads, but there is mild ST depression in V3, V4 and V5. Previous EKG for comparison looks much worse with more severe depressions and hyperacute inverted T waves. Heart Score - Score History: Highly Suspicious EKG: Non Specific repolarisation Disturbance Age: 45-65 Risk Factors: Equal/Greater than 3 risk factor or history of atherosclerotic disease Troponin: Less than normal limit HEART Score Total: 6
[2018-01-29 12:29] LABS: Basophils % 0.5 %; Eosinophils # 0.2 K/mcL (0.0-0.6); Eosinophils % 2.9 %; Hematocrit 41.2 % (35.3-44.9); Immature Granulocytes % 0.2 % (0-4); Lymphocytes # 1.6 K/mcL (0.6-4.6); Lymphocytes % 25.2 %; Mean Corpuscular Hemoglobin 30.8 pg (28.0-33.3); Mean Corpuscular Volume 90.7 fL (83.0-100.0); Mean Platelet Volume 10.4 fL (9.4-12.4); Monocytes # 0.3 K/mcL (0.0-1.3); Monocytes % 4.6 %; Neutrophils # 4.2 K/mcL (1.6-8.9); Platelet Count 222 K/mcL (140-400); Red Blood Count 4.54 M/mcL (3.82-4.97); Red Cell Distribution Width 12.9 % (11.5-14.5); Segmented Neutrophils % 66.6 %
[2018-01-29 12:35] LABS: INR 1.1; Prothrombin Time 12.3 Seconds (9.4-12.1)
[2018-01-29 12:38] LABS: Activated Partial Thrombo Time 29.3 Seconds (26.0-36.0)
[2018-01-29] MEDS ORDERED: Nitroglycerin 1 INCH/GM PACKET TP ONE (12:45)
[2018-01-29] MEDS ORDERED: *HR* FentaNYL (PF) 100 MCG/2 ML VIAL IVP ONE ×2 (12:46→15:16)
[2018-01-29 12:47] LABS: Troponin I < 0.03 ng/mL (< 0.04)
[2018-01-29 12:49] LABS: BUN/Creatinine Ratio 6 (6-26); Blood Urea Nitrogen 4 mg/dL (6-20); Calcium 9.8 mg/dL (8.6-10.3); Carbon Dioxide 24 mEq/L (23-29); Chloride 109 mEq/L (98-107); Glucose 94 mg/dL (70-105); Osmolality,Calculated 289 (280-300); Potassium 3.6 mEq/L (3.5-5.1); Sodium 141 mEq/L (136-145); eGFR For African Americans > 60 (> 60); eGFR For Non-African Americans > 60 (> 60)
[2018-01-29] MEDS ORDERED: *HR* Labetalol 100 MG/20 ML MDV IVP ONE (13:10)
--- NOTE | 2018-01-29 13:21 | Emergency Department Note ---
Disposition Clinical Impression: Chest pain Qualifiers: Chest pain type: unspecified Qualified Code(s): R07.9 - Chest pain, unspecified Disposition: Admitted As Inpatient Condition: Fair General Adult HPI - General Chief complaint: ED Chest Pain Stated complaint: CP Time Seen by Provider: 01/29/18 12:02 - History of Present Illness Pain Scale: 7 - Related Data Home Medications Medication Instructions Recorded Confirmed hydrOXYzine HCl [Hydroxyzine HCl] 25 mg PO BID PRN 09/11/17 01/29/18 Oxycodone HCl/Acetaminophen 1 tab PO TID PRN 10/15/17 01/29/18 [Percocet 10-325 mg Tablet] Tizanidine HCl [Zanaflex] 4 mg PO TID PRN 10/15/17 01/29/18 Clopidogrel [Plavix] 75 mg PO DAILY 11/06/17 01/29/18 Gabapentin [Neurontin] 800 mg PO TID 11/06/17 01/29/18 Amitriptyline [Elavil] 25 mg PO HS 01/29/18 01/29/18 Amlodipine Besylate 2.5 mg PO QPM 01/29/18 01/29/18 Tiotropium Br/Olodaterol HCl 2 puff IH DAILY 01/29/18 01/29/18 [Stiolto Respimat Inhal [place]] amLODIPine [Norvasc] 5 mg PO QAM 01/29/18 01/29/18 Previous Rx's Medication Instructions Recorded Albuterol Sulfate [Ventolin Hfa] 2 puff IH Q4-6H PRN #1 hfa.aer.ad 09/06/17 Nitroglycerin 0.4 mg SL Q5MIN PRN #30 tab.subl 10/18/17 Aspirin 81 mg PO DAILY #30 tab.chew 11/08/17 Atorvastatin Calcium [Lipitor] 20 mg PO HS #30 tablet 11/08/17 Fluticasone Propionate Nasal 50 mcg NS DAILY #1 bottle 11/08/17 [Flonase] Allergies Allergy/AdvReac Type Severity Reaction Status Date / Time morphine Allergy Itching Verified 10/14/17 20:00 Constitutional: Denies: fever, chills, weakness ENT ED: Denies: congestion Cardiovascular: Reports: chest pain. Denies: palpitations, dyspnea on exertion Respiratory: Reports: dyspnea. Denies: cough Gastrointestinal: Denies: abdominal pain, nausea, vomiting Musculoskeletal: Denies: back pain, neck pain Neurological: Denies: headache Past Medical History - Past Medical History Medical history: Reports: COPD, coronary artery disease, hypertension, myocardial infarction, other Surgical history: Reports: cholecystectomy, hysterectomy, other Psychiatric history: Reports: anxiety, depression, PTSD NATUROPATHIC DOCTOR history: Reports: no NATUROPATHIC DOCTOR history - Social History Smoking Status: Current every day smoker Smokeless Tobacco Status: No Alcohol use: Reports: none Drug use: Reports: none Physical Exam - General General appearance: alert, in no apparent distress Course Vital Signs Temperature 98.1 F 01/29/18 12:03 Pulse Rate 105 01/29/18 12:03 Respiratory Rate 25 01/29/18 12:03 Blood Pressure 188/123 01/29/18 12:03 O2 Sat by Pulse Oximetry 99 01/29/18 12:03 Temperature 98.2 F 01/29/18 18:35 Pulse Rate 74 01/29/18 18:35 Respiratory Rate 15 01/29/18 18:35 Blood Pressure 154/97 01/29/18 18:35 O2 Sat by Pulse Oximetry 97 01/29/18 18:35 Oxygen Delivery Oxygen Delivery Nasal Cannula Medical Decision Making - Lab Data Result diagrams: 01/29/18 15:25 01/29/18 12:07 Lab Results 01/29/18 01/29/18 01/29/18 Range/Units 12:07 12:07 12:07 WBC 6.3 (4.3-11.1) K/mcL RBC 4.54 (3.82-4.97) M/mcL Hgb 14.0 (11.5-15.4) g/dL Hct 41.2 (35.3-44.9) % MCV 90.7 (83.0-100.0) fL MCH 30.8 (28.0-33.3) pg MCHC 34.0 (31.6-35.5) g/dL RDW 12.9 (11.5-14.5) % Plt Count 222 (140-400) K/mcL MPV 10.4 (9.4-12.4) fL Immature Gran % 0.2 (0-4) % Seg Neutrophils % 66.6 % Lymphocytes % 25.2 % Monocytes % 4.6 % Eosinophils % 2.9 % Basophils % 0.5 % Neutrophils # 4.2 (1.6-8.9) K/mcL Lymphocytes # 1.6 (0.6-4.6) K/mcL Monocytes # 0.3 (0.0-1.3) K/mcL Eosinophils # 0.2 (0.0-0.6) K/mcL Basophils # 0.0 (0.0-0.2) K/mcL PT 12.3 H (9.4-12.1) Seconds INR 1.1 APTT 29.3 (26.0-36.0) Seconds Sodium 141 (136-145) mEq/L Potassium 3.6 (3.5-5.1) mEq/L Chloride 109 H (98-107) mEq/L Carbon Dioxide 24 (23-29) mEq/L BUN 4 L (6-20) mg/dL Creatinine 0.69 (0.60-1.20) mg/dL Est GFR ( Amer) > 60 (> 60) Est GFR (Non-Af Amer) > 60 (> 60) BUN/Creatinine Ratio 6 (6-26) Glucose 94 (70-105) mg/dL Calculated Osmolality 289 (280-300) Calcium 9.8 (8.6-10.3) mg/dL Troponin I < 0.03 (< 0.04) ng/mL Attestation Statement - Attestation Attestation: I examined this patient and my medical decision-making was reviewed with the Resident Physician. I agree with the documented findings, disposition and treatment plan as described except to the extent set forth below. Patient to the ED with a chief complaint of chest pain. Feels like prior MIs. Patient was seen in October and had a stent placed at that time. Patient crying on my evaluation. Lungs clear and heart regular. She is noted to be hypertensive in the 180s to 190s. Plan. The patient's EKG is improved from her prior EKG. She still having chest pain. It is improved with nitroglycerin. Starting Nitropaste at this time and giving labetalol. Admitted to the hospitalists for further workup. Her troponin is negative.
[2018-01-29] MEDS ORDERED: Naloxone 0.4 MG/ML INJ IVP PRN (13:49)
[2018-01-29] MEDS ORDERED: tiZANidine 4 MG TABLET PO PRN (13:51)
[2018-01-29] MEDS ORDERED: Nitroglycerin 0.4 MG TAB.SUBL SL PRN (13:51)
[2018-01-29] MEDS ORDERED: hydrOXYzine pamoate 25 MG CAPSULE PO PRN (13:51)
--- NOTE | 2018-01-29 13:57 | Internal Med History&Physical ---
Date of Encounter: 01/29/18 Time of Encounter: 13:56 Internal Medicine - H&P: HPI Chief complaint: chest pain Admitted From: Emergency Dept Plans for Post Hospital Care: Home History of present illness: Ms. Bonilla is a 47 year old female background history of hypertension, dyslipidemia, tobacco abuse, COPD, was recently hospitalized and underwent cardiac catheterization when she was placed in stents. This morning around 9:00 patient started complaining of persistent chest pain which was a left-sided precordial pain, radiating to left arm and jaw. Patient complains that the pain was excruciating in nature, persistent gets worse by movement and coughing and relieved by rest. She complains that the pain is similar to what she had a previous episode when she underwent cardiac catheterization. Patient denies vomiting, abdominal pain, diarrhea and dizziness. Workup in the emergency room: Patient was evaluated in the emergency room. Baseline labs were drawn. EKG was done. Reason for admission: Heart score: 3, chest pain to rule out ACS Past Med Surg Social Fam HX - Past Medical History Medical history: COPD, coronary artery disease, hypertension, myocardial infarction, other Psychiatric history: anxiety, depression, PTSD - Past Surgical History Surgical History: cholecystectomy, hysterectomy, other - Social History Smoking Status: Current every day smoker Smokeless Tobacco Status: No Alcohol use: none Drug use: none - Family History Mother Living Status: Still Living Hx Family Cardiac Disorders: Yes (cabg, chf, htn) Hx Family Respiratory Disorders: Yes (emphysema) Hx Family Endocrine Disorder: Yes (dm) Father Living Status: Still Living Hx Family Cardiac Disorders: Yes (heart disease) Internal Medicine - H&P: Meds Albuterol Sulfate [Ventolin Hfa] 2 puff IH Q4-6H PRN #1 hfa.aer.ad 09/06/17 [Rx] hydrOXYzine HCl [Hydroxyzine HCl] 25 mg PO BID PRN 09/11/17 [History] Oxycodone HCl/Acetaminophen [Percocet 10-325 mg Tablet] 1 tab PO TID PRN [History] Tizanidine HCl [Zanaflex] 4 mg PO TID PRN 10/15/17 [History] Nitroglycerin 0.4 mg SL Q5MIN PRN #30 tab.subl 10/18/17 [Rx] Clopidogrel [Plavix] 75 mg PO DAILY 11/06/17 [History] Gabapentin [Neurontin] 800 mg PO TID 11/06/17 [History] Aspirin 81 mg PO DAILY #30 tab.chew 11/08/17 [Rx] Atorvastatin Calcium [Lipitor] 20 mg PO HS #30 tablet 11/08/17 [Rx] Fluticasone Propionate Nasal [Flonase] 50 mcg NS DAILY #1 bottle 11/08/17 [Rx] Amitriptyline [Elavil] 25 mg PO HS 01/29/18 [History] Amlodipine Besylate 2.5 mg PO QPM 01/29/18 [History] Tiotropium Br/Olodaterol HCl [Stiolto Respimat Inhal [place]] 2 puff IH DAILY 04/11 [History] amLODIPine [Norvasc] 5 mg PO QAM 01/29/18 [History] 3 Allergy/AdvReac Type Severity Reaction Status Date / Time morphine Allergy Itching Verified 10/14/17 20:00 All Systems PM: A 10-system review of systems was performed and is negative for pertinent findings except as documented above in the HPI. - Constitutional Constitutional: no chills, no fever(s), no night sweats - EENT Eyes: no change in vision, no discharge, no pain, no photophobia Ears: no ear discharge, no ear pain, no tinnitus Nose, mouth and throat: no dysphagia, no nasal discharge, no neck pain, no sore throat - Cardiovascular Cardiovascular ROS IM: chest pain, no diaphoresis, no dyspnea, no lightheadedness, no palpitations, no syncope - Respiratory Respiratory: no cough, no dyspnea, no wheezing, no excessive phlegm production - Gastrointestinal Gastrointestinal: no abdominal pain, no diarrhea, no hematemesis, no hematochezia, no melena, no nausea, no vomiting - Genitourinary Genitourinary: no change in urinary stream, no dysuria, no flank pain, no hematuria - Musculoskeletal Musculoskeletal ROS IM: no numbness, no tingling - Integumentary Integumentary IM: no rash, no unusual bruising - Neurological Neurological ROS: no confusion, no convulsions, no focal weakness, no numbness, no tingling, no tremor(s) - Hematologic/Lymphatic Hematologic/Lymphatic: no easy bruising - Constitutional Vitals: Temp Pulse Resp BP Pulse Ox 98.1 F 89 17 148/107 100 01/29/18 12:03 01/29/18 12:49 01/29/18 12:49 01/29/18 12:49 01/29/18 12:54 General appearance: Present: A&O X 3, pleasant, no acute distress - Head Head exam: Present: atraumatic, normocephalic - Eye Eye exam: Present: PERRL, conjuntiva pink, sclera anicteric Pupils: Present: PERRL - Neck Neck exam general surgery: Present: supple, trachea midline. Absent: lymphadenopathy - Respiratory Respiratory exam: Present: CTAB. Absent: accessory muscle use, rales, rhonchi, wheezes - Cardiovascular Cardiovascular exam: Present: RRR, +S1, +S2. Absent: diastolic murmur, gallop, rubs, systolic murmur - GI/Abdominal GI/Abdominal exam: Present: normal bowel sounds, soft, no peritoneal signs. Absent: distended, tenderness - Extremities Exam Extremities exam: Present: warm, radial pulses palpable and symmetrical. Absent : calf tenderness, cyanotic, pedal edema - Neurological Exam Neurological exam: Present: CN II-XII intact, oriented X3, no focal deficits. Absent: pronater drift, facial droop, speech deficit - Skin Skin exam: Present: dry, intact Internal Med - H&P Results - Labs CBC & Chem 7: 01/29/18 12:07 01/29/18 12:07 - Assessment and plan (1) Chest pain Current Visit: Yes Status: Acute Assessment and plan: Admitted with chest pain: Plan: Admit as observation. Aspirin/statin/beta blockers/nitroglycerin. Cycle troponin. If troponin is negative then please consider other causes for the stress test. If patient chest pain get worse please call cardiology. I examined this patient in emergency department room #1. Plan of care extent to the patient. She verbalized understanding. Qualifiers: Chest pain type: unspecified Qualified Code(s): R07.9 - Chest pain, unspecified (2) HTN (hypertension) Current Visit: No Status: Chronic Assessment and plan: Will monitor patient's blood pressure very closely Qualifiers: Hypertension type: essential hypertension Qualified Code(s): I10 - Essential (primary) hypertension (3) COPD (chronic obstructive pulmonary disease) Current Visit: No Status: Acute Assessment and plan: Active cigarette smoker. Not an exacerbation of COPD. We will continue to monitor closely her respiratory status. Qualifiers: COPD type: unspecified COPD Qualified Code(s): J44.9 - Chronic obstructive pulmonary disease, unspecified (4) CAD (coronary artery disease) Current Visit: No Status: Acute Assessment and plan: Known to have a coronary artery disease Echocardiogram: 11/07/2017: EF 60%, normal LV chamber, no evidence of pulmonary hypertension. Cardiac catheter: 10/15/2017: PCI to mid LAD and POBA In the past patient has missed some normal anticoagulation after the stent placement. Patient has strong history of for noncompliance. Qualifiers: Coronary Disease-Associated Artery/Lesion type: [place] artery [place] vs. transplanted heart: [place] heart Associated angina: without angina Qualified Code(s): I25.10 - Atherosclerotic heart disease of [place] coronary artery without angina pectoris (5) Tobacco dependence Current Visit: No Status: Chronic Assessment and plan: Patient is actively using tobacco. She smokes every day. Last cigarette smoke for this morning when she got up at 5 AM. Patient denies any possibility that she will quit smoking in near future (6) DVT prophylaxis Current Visit: No Status: Acute Assessment and plan: Heparin Medical decision making: This patient has a moderate to severe risk of worsening in spite of being on appropriate medication due to the underlying complex comorbid condition. - Time Spent With Patient Total time spent is greater than 50% in coordination of care (as documented) at patient's floor/unit and/or counseling patient:
[2018-01-29] MEDS ORDERED: *HR* Heparin 5,000 UNIT/ML VIAL IVP ONE (15:16)
[2018-01-29] MEDS ORDERED: *HR* Heparin 5,000 UNIT/ML VIAL IVP PRN ×2 (15:16)
[2018-01-29] MEDS: *HR* OxyCODONE/APAP 10/325 TABLET PO PRN ×2 (15:29→20:58)
[2018-01-29] MEDS ORDERED: Heparin 25,000 UNIT/500 ML D5W 25,000 UNIT/500 ML BAG IVC SCH (15:30)
[2018-01-29 15:36] LABS: Hematocrit 37.6 % (35.3-44.9); Hemoglobin 12.5 g/dL (11.5-15.4); Mean Corpuscular HGB Conc 33.2 g/dL (31.6-35.5); Mean Corpuscular Hemoglobin 30.5 pg (28.0-33.3); Mean Corpuscular Volume 91.7 fL (83.0-100.0); Mean Platelet Volume 10.5 fL (9.4-12.4); Platelet Count 210 K/mcL (140-400)
[2018-01-29 15:43] LABS: INR 1.2; Prothrombin Time 12.9 Seconds (9.4-12.1)
[2018-01-29 15:46] LABS: Activated Partial Thrombo Time 29.9 Seconds (26.0-36.0)
[2018-01-29] MEDS: Gabapentin 400 MG CAPSULE PO SCH ×2 (17:32→20:58)
[2018-01-29] MEDS ORDERED: amLODIPine 5 MG TABLET PO SCH (18:00)
[2018-01-29] MEDS ORDERED: *HR* Heparin 5,000 UNIT/ML VIAL SQ SCH (22:00)
[2018-01-30] MEDS: *HR* OxyCODONE/APAP 10/325 TABLET PO PRN ×2 (01:57→09:32)
[2018-01-30 05:17] LABS: Basophils % 0.5 %; Eosinophils # 0.3 K/mcL (0.0-0.6); Eosinophils % 4.5 %; Hemoglobin 12.8 g/dL (11.5-15.4); Immature Granulocytes % 0.3 % (0-4); Lymphocytes # 2.7 K/mcL (0.6-4.6); Lymphocytes % 44.4 %; Mean Corpuscular HGB Conc 32.8 g/dL (31.6-35.5); Mean Corpuscular Hemoglobin 30.5 pg (28.0-33.3); Mean Corpuscular Volume 92.9 fL (83.0-100.0); Mean Platelet Volume 10.9 fL (9.4-12.4); Monocytes # 0.3 K/mcL (0.0-1.3); Monocytes % 5.5 %; Neutrophils # 2.8 K/mcL (1.6-8.9); Platelet Count 199 K/mcL (140-400); Red Cell Distribution Width 13.2 % (11.5-14.5); Segmented Neutrophils % 44.8 %
[2018-01-30 05:28] LABS: INR 1.1; Prothrombin Time 11.5 Seconds (9.4-12.1)
[2018-01-30 05:34] LABS: Alanine Aminotransferase 9 Units/L (7-52); Albumin/Globulin Ratio 1.5 (1.1-2.2); Alkaline Phosphatase 106 Units/L (34-104); Aspartate Amino Transferase 10 Units/L (13-39); BUN/Creatinine Ratio 12 (6-26); Bilirubin,Total 0.3 mg/dL (0.3-1.0); Blood Urea Nitrogen 8 mg/dL (6-20); Calcium 9.2 mg/dL (8.6-10.3); Carbon Dioxide 28 mEq/L (23-29); Chloride 107 mEq/L (98-107); Cholesterol 133 mg/dL (< 200); Globulin 2.7 g/dL (2.4-3.5); Glucose 83 mg/dL (70-105); HDL Cholesterol 33 mg/dL (40-59); LDL Cholesterol,Calculated 61 mg/dL (0-99); Osmolality,Calculated 291 (280-300); Phosphorous 4.5 mg/dL (2.7-4.5); Potassium 3.2 mEq/L (3.5-5.1); Sodium 142 mEq/L (136-145); Total Protein 6.7 g/dL (6.4-8.9); Triglycerides 196 mg/dL (< 150); eGFR For African Americans > 60 (> 60); eGFR For Non-African Americans > 60 (> 60)
[2018-01-30] MEDS ORDERED: (Tiotropium Br/Olodaterol Hcl [Stiolto Respimat Inhal IH SCH (09:00)
[2018-01-30] MEDS ORDERED: amLODIPine 5 MG TABLET PO SCH (09:00)
[2018-01-30] MEDS ORDERED: Aspirin 81 MG TAB.CHEW PO SCH (09:00)
[2018-01-30] MEDS: Gabapentin 400 MG CAPSULE PO SCH (09:26)
--- NOTE | 2018-01-30 10:01 | Cardiology Consult Note ---
Date of Encounter: 01/30/18 Time of Encounter: 08:45 Assessment and Plan (1) Chest pain Current Visit: Yes Status: Acute Per cardiology: -Reported atypical chest pain, occured at rest. -Possibly related to BP, BP on admission noted to be 188/123. -Denies current chest pain. -Troponins negative x4. -ECG with no acute ischemic changes, ECG improved from previous. -On asa, statin, plavix, heparin drip. -Denies missed doses of asa or plavix since last admission. -LHC 09/2017 with 75% mid LAD with ARIANA placed. Otherwise angiographically free of disease. -TTE 10/2017 with LVEF 60%, no segmental wall motion abnormalities. -Suspect chest pain related to HTN. Will add coreg. -Will stop heparin drip. Qualifiers: Chest pain type: unspecified Qualified Code(s): R07.9 - Chest pain, unspecified (2) HTN (hypertension) Current Visit: No Status: Chronic Per cardiology: -Known HTN. -Reports occasionally missing medications. -ON norvasc 5mg am and 2.5mg PM. -BP 180/110 on admisison. -Will add coreg. -Educated to keep BP and HR log at home. Qualifiers: Hypertension type: essential hypertension Qualified Code(s): I10 - Essential (primary) hypertension (3) Tobacco dependence Current Visit: No Status: Chronic Per cardiology: -Known tobacco abuse. -Smoking cessation eductaion reinforced. Discussion w patient/family: The assessment and plan as outlined above was discussed with the patient who expressed understanding and agreement. All questions were answered. Thank you for involving us in the care of your patient. Please call with any questions. Discussed and reviewed with . History of Present Illness Consult date: 01/29/18 Requesting physician: Carola Michel Consult reason: chest pain Chief complaint: chest pain History of present illness: Ms. Bonilla is a 47 year old female with a relevant past medical history of CAD s /p PCI, HTN, tobacco abuse. Patient presented to [facility] with complaints of chest pain. Patient reports she was visiting her fiance in the hospital when she had chest pain. Patient reports was sitting when chest pain occurred. Denies aggravating or alleviating factors. Denies exertional symptoms. Patient reports HTN at home. States BPs 180-200s systolic at home. Patient denies missed doses of asa or plavix. Reports occasioanlly missing BP meds. States has been trying to do better with medication compliance. Past Med Surg Social Fam HX - Past Medical History Attestation: Yes The following information was validated with the patient. Source: patient, old records reviewed Medical history: COPD, coronary artery disease, hypertension, myocardial infarction, other Psychiatric history: anxiety, depression, PTSD - Past Surgical History Surgical History: cholecystectomy, hysterectomy, other - Social History Smoking Status: Current every day smoker Smokeless Tobacco Status: No Alcohol use: none Drug use: none - Family History Mother Living Status: Still Living Hx Family Cardiac Disorders: Yes (cabg, chf, htn) Hx Family Respiratory Disorders: Yes (emphysema) Hx Family Endocrine Disorder: Yes (dm) Father Living Status: Still Living Hx Family Cardiac Disorders: Yes (heart disease) Medications and Allergies Albuterol Sulfate [Ventolin Hfa] 2 puff IH Q4-6H PRN #1 hfa.aer.ad 09/06/17 [Rx] hydrOXYzine HCl [Hydroxyzine HCl] 25 mg PO BID PRN 09/11/17 [History] Oxycodone HCl/Acetaminophen [Percocet 10-325 mg Tablet] 1 tab PO TID PRN [History] Tizanidine HCl [Zanaflex] 4 mg PO TID PRN 10/15/17 [History] Nitroglycerin 0.4 mg SL Q5MIN PRN #30 tab.subl 10/18/17 [Rx] Clopidogrel [Plavix] 75 mg PO DAILY 11/06/17 [History] Gabapentin [Neurontin] 800 mg PO TID 11/06/17 [History] Aspirin 81 mg PO DAILY #30 tab.chew 11/08/17 [Rx] Atorvastatin Calcium [Lipitor] 20 mg PO HS #30 tablet 11/08/17 [Rx] Fluticasone Propionate Nasal [Flonase] 50 mcg NS DAILY #1 bottle 11/08/17 [Rx] Amitriptyline [Elavil] 25 mg PO HS 01/29/18 [History] Amlodipine Besylate 2.5 mg PO QPM 01/29/18 [History] Tiotropium Br/Olodaterol HCl [Stiolto Respimat Inhal [place]] 2 puff IH DAILY 04/11 [History] amLODIPine [Norvasc] 5 mg PO QAM 01/29/18 [History] 3 Allergy/AdvReac Type Severity Reaction Status Date / Time morphine Allergy Itching Verified 10/14/17 20:00 All Systems Review: The remainder of the systems were reviewed and are negative - Cardiovascular Cardiovascular: as per HPI, chest pain at rest Physical Examination Vital Signs, Last 4 Hours Temp Pulse Resp BP Pulse Ox 01/30/18 09:33 155/111 01/30/18 06:55 98.2 F 82 16 159/113 99 General: Conversant, No Apparent Distress HEENT: Atraumatic, Normocephaly, Mucus Membranes Moist Neck: No JVD, Normal carotid pulses Cardiac: Reg Rate and Rhythm, Normal S1 and S2, No Murmur Lungs: Normal Breath Sounds, No Wheeze, Rales, Rhonchi Neuro: Alert and responsive, No focal deficits noted Abdomen: Soft, Non-Tender Skin: No rashes noted on visualized skin Musculoskeletal: No Chest Wall Tenderness Extremities: No Clubbing, No Cyanosis, No Edema, Normal Pulses Results 01/30/18 04:33 01/30/18 04:33 Lab Results 01/29/18 01/29/18 01/29/18 15:25 15:25 15:25 WBC 7.0 Hgb 12.5 D Hct 37.6 Plt Count 210 INR 1.2 APTT 29.9 Sodium Potassium Chloride Carbon Dioxide BUN Creatinine Glucose Calcium Magnesium Total Bilirubin AST ALT Alkaline Phosphatase Troponin I < 0.03 B-Natriuretic Peptide Impressions Chest X-Ray 01/29/18 12:11 IMPRESSION: No acute abnormality. D/ /29/2018 14:29:23 Demetris Williamson MD / joann Interpreting Provider: Demetris Williamson MD Active Medications Amitriptyline HCl (Elavil) 25 mg PO HS PEDRO Stop: 07/31/18 21:01 Last Admin: 01/29/18 20:57 Dose: 25 mg Amlodipine Besylate (Norvasc) 5 mg PO QAM PEDRO PRN Reason: Protocol Stop: 08/01/18 09:01 Last Admin: 01/30/18 09:25 Dose: 5 mg Amlodipine Besylate (Norvasc) 2.5 mg PO QPM PEDRO Stop: 07/31/18 18:01 Last Admin: 01/29/18 17:33 Dose: 2.5 mg Aspirin (Aspirin) 81 mg PO DAILY PEDRO Stop: 08/01/18 09:01 Last Admin: 01/30/18 09:26 Dose: 81 mg Atorvastatin Calcium (Lipitor) 20 mg PO HS PEDRO Stop: 07/31/18 21:01 Last Admin: 01/29/18 20:57 Dose: 20 mg Carvedilol (Coreg) 3.125 mg PO BIDWM PEDRO PRN Reason: Protocol Stop: 08/01/18 09:30 Last Admin: 01/30/18 09:49 Dose: 3.125 mg Clopidogrel Bisulfate (Plavix) 75 mg PO DAILY PEDRO Stop: 08/01/18 09:01 Last Admin: 01/30/18 09:26 Dose: 75 mg Gabapentin (Neurontin) 800 mg PO TID PEDRO Stop: 07/31/18 15:01 Last Admin: 01/30/18 09:26 Dose: 800 mg Hydralazine HCl (Hydralazine) 10 mg IVP Q6HR PRN PRN Reason: Hypertension Stop: 08/01/18 08:35 Last Admin: 01/30/18 09:32 Dose: 10 mg Hydroxyzine Pamoate (Hydroxyzine Pamoate) 25 mg PO BID PRN PRN Reason: Anxiety Last Admin: 01/29/18 17:58 Dose: 25 mg Naloxone HCl (Narcan) 0.4 mg IVP Q2MIN PRN PRN Reason: SEE COMMENTS Stop: 07/31/18 13:50 Nitroglycerin (Nitroglycerin) 0.4 mg SL Q5MIN PRN PRN Reason: Chest Pain Stop: 07/31/18 13:52 Last Admin: 01/29/18 14:53 Dose: 0.4 mg Oxycodone/Acetaminophen (Percocet 10/325) 1 each PO TID PRN PRN Reason: Pain Stop: 07/31/18 13:52 Last Admin: 01/30/18 09:32 Dose: 1 each Pharmacy Profile Note (Patient Taking Own Medication) 2 each IH DAILY PEDRO Stop: 08/01/18 09:01 Last Admin: 01/30/18 09:26 Dose: Not Given Potassium Chloride (Potassium Chloride) 20 meq PO BID PEDRO Stop: 08/01/18 09:01 Last Admin: 01/30/18 09:26 Dose: 20 meq Tizanidine HCl (Zanaflex) 4 mg PO TID PRN PRN Reason: Muscle Spasm Laboratory Tests 01/29/18 01/29/18 01/29/18 12:07 15:25 21:20 Hgb Creatinine Troponin I < 0.03 < 0.03 < 0.03 01/30/18 01/30/18 01/30/18 04:33 04:33 04:33 Hgb 12.8 Creatinine 0.68 Troponin I < 0.03 - Imaging and Cardiology Chest Xray: report reviewed Echo: report reviewed Cardiac cath: report reviewed - EKG Interpretation EKG results cardiology: personally reviewed (ECG with SR, HR 85. T wave inversions noted in leads V4 and V5), other (Telemetry reviewed with average HR previous 12 hours noted to be 72, SR. PVCs and PACs noted.) Consult Discharge Plan - Plan Referrals: Joey Rg DO [Primary Care Provider] -
--- NOTE | 2018-01-30 14:33 | Discharge Summary ---
- NOTES TO OUTPATIENT PROVIDER Notes to Outpatient Provider: Pt was admitted for chest pain, worse with movement and cough. Pt was evaluated by cardiology and they suspect that pain is due to uncontrolled HTN. Pt states that DBP >100 is normal for her. Coreg has been added and pt will need medication changes. She has been encouraged to keep a log of her bp and bring to visits. Orders not resulted at time of discharge: Pending orders 01/29/18 12:11 ECG 12 lead ECG [ECG] Stat Date of Encounter: 01/30/18 Time of Encounter: 10:20 - Discharge Diagnosis (1) Chest pain Priority: Primary Status: Acute Assessment and Plan: Pt denies chest pain. Troponins negative. EKG without signs of ischemia. Cardiology has evaluated pt and have signed off. Recommend better control of blood pressure, pain likely secondary to HTN. Follow with PCP and cardiology as scheduled. Qualifiers: Chest pain type: unspecified Qualified Code(s): R07.9 - Chest pain, unspecified (2) HTN (hypertension) Priority: Secondary Status: Chronic Assessment and Plan: Pt with uncontrolled hypertension. Reports that SBP > 100 is "normal for me." Coreg has been ordered by cardiology and controlled BP well until morning, will increase from 2.5mg po daily to 5mg po daily. Pt will need to keep a log of BP and share with PCP at visit for evaluation and any necessary medication changes. Qualifiers: Hypertension type: essential hypertension Qualified Code(s): I10 - Essential (primary) hypertension (3) DVT prophylaxis Priority: Secondary Status: Acute Assessment and Plan: Heparin SQ (4) Tobacco dependence Priority: Secondary Status: Chronic Assessment and Plan: Patient states that she smokes > 1 PPD. Pt states that she would like to stop smoking and suggested Chantix. First dose to be given here, will give rx for remainder. (5) COPD (chronic obstructive pulmonary disease) Priority: Secondary Status: Chronic Assessment and Plan: NO acute exacerbation. Pt with clear lungs and no respiratory distress or supplemental 02. Continue home medications. Chantix rx given at discharge. Qualifiers: COPD type: unspecified COPD Qualified Code(s): J44.9 - Chronic obstructive pulmonary disease, unspecified (6) CAD (coronary artery disease) Priority: Secondary Status: Acute Assessment and Plan: Known to have a coronary artery disease. Pt denies chest pain currently. Echocardiogram: 11/07/2017: EF 60%, normal LV chamber, no evidence of pulmonary hypertension. Cardiac catheter: 10/15/2017: PCI to mid LAD and POBA Qualifiers: Coronary Disease-Associated Artery/Lesion type: [place] artery [place] vs. transplanted heart: [place] heart Associated angina: without angina Qualified Code(s): I25.10 - Atherosclerotic heart disease of [place] coronary artery without angina pectoris Hospital course: Ms. Bonilla is a 47 year old female with past medical history including hypertension, hyperlipidemia, tobacco abuse, COPD, recent cardiac catheterization with stent placement. She was admitted for persistent chest pain, left-sided with radiation to left arm and jaw that became worse with movement and coughing. She reported that the pain is the same. She had when she had her LHC. She denies nausea, vomiting, diaphoresis, shortness of breath. Pt with recent LHC and stent placement. EKG is normal sinus rhythm without any ST changes. Patient has remained chest pain-free. She has been evaluated by cardiology who feels that the chest pain is related to her uncontrolled hypertension. Patient reports she normally has systolic blood pressure at or greater than 100. Norvasc 5mg po daily and Carvedilol 3.125mg po BID will be continued. We have encouraged her to keep a log of her BP to share with her PCP at her visits and to take her medications exactly as written and as scheduled. She denies chest pain and states that she wants to stop smoking. Chantix rx will be given for discharge. Pt is stable and ready for discharge. Discharge discussed with: patient, family - Time Spent with Patient Total time spent providing and/or coordinating discharge services: Less than 30 minutes - Discharge Medications Prescriptions: amLODIPine [Norvasc] 5 mg PO QPM #30 tablet Carvedilol [Coreg] 3.125 mg PO BIDWM #30 tablet Varenicline Tartrate [Chantix Starting Month SAGAR] 1 each PO AD #1 dosepack Home Medications: Albuterol Sulfate [Ventolin Hfa] 2 puff IH Q4-6H PRN #1 hfa.aer.ad 09/06/17 [Rx] hydrOXYzine HCl [Hydroxyzine HCl] 25 mg PO BID PRN 09/11/17 [History] Oxycodone HCl/Acetaminophen [Percocet 10-325 mg Tablet] 1 tab PO TID PRN [History] Tizanidine HCl [Zanaflex] 4 mg PO TID PRN 10/15/17 [History] Nitroglycerin 0.4 mg SL Q5MIN PRN #30 tab.subl 10/18/17 [Rx] Clopidogrel [Plavix] 75 mg PO DAILY 11/06/17 [History] Gabapentin [Neurontin] 800 mg PO TID 11/06/17 [History] Aspirin 81 mg PO DAILY #30 tab.chew 11/08/17 [Rx] Atorvastatin Calcium [Lipitor] 20 mg PO HS #30 tablet 11/08/17 [Rx] Fluticasone Propionate Nasal [Flonase] 50 mcg NS DAILY #1 bottle 11/08/17 [Rx] Amitriptyline [Elavil] 25 mg PO HS 01/29/18 [History] Tiotropium Br/Olodaterol HCl [Stiolto Respimat Inhal [place]] 2 puff IH DAILY 04/11 [History] amLODIPine [Norvasc] 5 mg PO QAM 01/29/18 [History] Carvedilol [Coreg] 3.125 mg PO BIDWM #30 tablet 01/30/18 [Rx] Varenicline Tartrate [Chantix Starting Month ] 1 each PO AD #1 dosepack 01/30 [Rx] amLODIPine [Norvasc] 5 mg PO QPM #30 tablet 01/30/18 [Rx] Allergies/Adverse Reactions: 3 Allergy/AdvReac Type Severity Reaction Status Date / Time morphine Allergy Itching Verified 10/14/17 20:00 Date of admission: 01/29/18 13:21 Primary care physician: Joey Rg DO Consults: 01/29/18 15:17 Consult to Cardiology [CONS] Routine Comment: Consulting Provider: Cardiology [facility] Reason for Consult: chest pain Call Completed: Yes Discharging clinician: Tona Matthew Anticipated date of discharge: 01/30/18 - Constitutional Vitals: Temp Pulse Resp BP Pulse Ox 98.1 F 107 18 139/81 96 01/30/18 11:29 01/30/18 11:29 01/30/18 11:29 01/30/18 11:29 01/30/18 11:29 General appearance: Present: cooperative, A&O X 3, pleasant, no acute distress, answers questions appropriately - Head Head exam: Present: atraumatic, normal inspection, normocephalic - Eye Eye exam: Present: normal appearance, conjuntiva pink, sclera anicteric - Neck Neck exam general surgery: Present: normal inspection, supple, trachea midline. Absent: lymphadenopathy - Respiratory Respiratory exam: Present: CTAB. Absent: accessory muscle use, rales, respiratory distress, rhonchi, wheezes - Cardiovascular Cardiovascular exam: Present: RRR, +S1, +S2. Absent: diastolic murmur, gallop, rubs, systolic murmur - GI/Abdominal GI/Abdominal exam: Present: normal bowel sounds, soft. Absent: distended, hepatomegaly, tenderness - Extremities Exam Extremities exam: Present: normal capillary refill, normal inspection, warm, radial pulses palpable and symmetrical. Absent: calf tenderness, cyanotic, pedal edema, tenderness - Neurological Exam Neurological exam: Present: alert, oriented X3, no focal deficits. Absent: facial droop, speech deficit - Skin Skin exam: Present: dry, intact, normal color, warm. Absent: rash - Patient Status Disposition: Home, Self-Care Condition: Good Functional capacity at discharge: independent ambulation Overall status at discharge: patient is back to baseline - Discharge Instructions Follow Up With: Joey Rg DO [Primary Care Provider] - Additional Instructions: Please follow up with your primary care provider. Call for an appointment within the next 7-10 days. Take your medications as directed. Your new prescriptions have been called into your pharmacy, please pick them up today. Resume your other home medications, activities and diet as tolerated. Return to the emergency department as needed for any other problems or concerns , or if your symptoms return or worsen. - Diet and Activity Activity: increase activity as tolerated Diet: low fat, low cholesterol
[2018-01-30 15:02] VITALS: BP 130/90
--- NOTE | 2018-01-30 16:28 | Electrocardiograph Report ---
[address] [place] [address] Test Date: 2018-01-29 Pat Name: Judy Bonilla Department: 102 Room: 3B47 Gender: F Mannequin Mounter: : 1970 Requested By: Kristopher Rodriguez Order Number: [id number] Reading MD: Rama Kirkland Measurements Intervals [place] Rate: 85 P: 74 SD: 136 QRS: 52 QRSD: 85 T: 0 QT: 341 QTc: 383 Interpretive Statements SINUS RHYTHM ST DEVIATION AND MODERATE T-WAVE ABNORMALITY, CONSIDER LATERAL ISCHEMIA [-0.1+ mV T WAVE IN I/aVL/V5/V6] ARTIFACT Electronically Signed On 01-30-2018 16:26:54 EDT by Rama Kirkland
== END 2018-01-30 16:20 | disposition home or self-care (01) ==
LOC: EMEROO 11:50 → 3BNU 11:50
PROVIDERS: ADMIT Internal Medicine; ATTEND Internal Medicine

== ENCOUNTER 2018-07-22 15:47 | Observation (INO) ==
[2018-07-22] MEDS ORDERED: Ipratropium/Albuterol Neb 3 ML IH ONE (15:53)
[2018-07-22] MEDS ORDERED: predniSONE 20 MG TABLET PO ONE (15:54)
--- NOTE | 2018-07-22 16:14 | Emergency Department Note ---
Disposition Clinical Impression: Acute exacerbation of chronic obstructive airways disease Chest pain Qualifiers: Chest pain type: unspecified Qualified Code(s): R07.9 - Chest pain, unspecified Disposition: Still a Patient Referrals: NONE,PCP [Primary Care Provider] - Forms: ED Satisfaction Letter General Adult HPI - General Chief complaint: ED Shortness of Breath/Dyspnea Stated complaint: shortness of breath Time Seen by Provider: 07/22/18 15:54 Source: patient, EMS Limitations: no limitations Nursing Notes Reviewed: Yes Vital Signs Reviewed: Yes - History of Present Illness HPI Narrative: 47-year-old female presents to the emergency department and playing of shortness of breath the last 2 days. Patient states it feels like a COPD exacerbation. Patient also reporting having chest pressure. States it radiates to left side of her arm. Reports history of myocardial infarction, but states that she does not really know what it felt like then. Patient not on oxygen at home. Pain Scale: 7 - Related Data Home Medications Medication Instructions Recorded Confirmed Amitriptyline [Elavil] 50 mg PO HS 03/02/18 03/02/18 Amlodipine Besylate 2.5 mg PO HS 03/02/18 03/02/18 Aspirin 81 mg PO DAILY 03/02/18 03/02/18 Atorvastatin Calcium [Lipitor] 20 mg PO HS 03/02/18 03/02/18 Carvedilol [Coreg] 6.25 mg PO BID 03/02/18 03/02/18 Clopidogrel [Plavix] 75 mg PO DAILY 03/02/18 03/02/18 Duloxetine HCl [Cymbalta] 60 mg PO DAILY 03/02/18 03/02/18 Fluticasone Propionate Nasal 1 spr NS DAILY PRN 03/02/18 03/02/18 [Flonase] Gabapentin [Neurontin] 800 mg PO TID 03/02/18 03/02/18 Omeprazole [PriLOSEC] 40 mg PO DAILY 03/02/18 03/02/18 OxyCODONE/APAP 10/325 [Percocet 1 tab PO Q8H PRN 03/02/18 03/02/18 10/325 MG] SUMAtriptan Succinate [Imitrex] 100 mg PO Q2H PRN 03/02/18 03/02/18 Tiotropium Br/Olodaterol HCl 2 puff IH DAILY 03/02/18 03/02/18 [Stiolto Respimat Inhal [place]] Tizanidine HCl 4 mg PO TID PRN 03/02/18 03/02/18 Trazodone HCl 100 mg PO HS 03/02/18 03/02/18 amLODIPine [Norvasc] 5 mg PO QAM 03/02/18 03/02/18 Previous Rx's Medication Instructions Recorded Doxycycline 100 mg PO DAILY 21 Days #28 capsule 03/02/18 Diclofenac Sodium [Voltaren] 100 gm TP DAILY #1 gel..gram. 03/16/18 Allergies Allergy/AdvReac Type Severity Reaction Status Date / Time isosorbide Allergy Headache Verified 07/22/18 16:00 morphine Allergy Itching Verified 07/22/18 16:00 All systems ED: reviewed and negative except as stated. Review of Systems: As Per HPI Constitutional: Denies: fever Cardiovascular: Reports: chest pain Respiratory: Reports: cough, dyspnea, wheezes. 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: no PARK ATTENDANT history - Social History Smoking Status: Current every day smoker Smokeless Tobacco Status: No Alcohol use: Reports: none Drug use: Reports: none Physical Exam - General Limitations: no limitations General appearance: alert, anxious - Head Head exam: normocephalic - Eye Eye exam: Present: EOMI - ENT ENT exam: normal oropharynx - Neck Neck exam: Present: trachea midline - Chest Chest inspection: Present: symmetric chest wall rise - Respiratory Respiratory exam: Present: wheezes, other (Inspiratory stridor) - Cardiovascular Cardiovascular exam: Present: tachycardia, normal heart sounds - Abdominal Exam Abdominal exam: Present: soft, Non-Tender. Absent: distention, guarding, rebound, rigidity - Extremities Exam Extremities exam: Present: normal capillary refill - Back Exam Back exam: Present: full ROM - Neurological Exam Neurological exam: Present: alert, oriented X3 - Psychiatric Psychiatric exam: Present: anxious - Skin Skin exam: Present: warm, dry, intact, normal color. Absent: rash Course Vital Signs Temperature 98.4 F 07/22/18 15:53 Pulse Rate 99 07/22/18 15:53 Respiratory Rate 20 07/22/18 15:53 Blood Pressure 155/109 07/22/18 15:53 O2 Sat by Pulse Oximetry 99 07/22/18 15:53 Temperature 98.4 F 07/22/18 15:53 Pulse Rate 99 07/22/18 15:53 Respiratory Rate 28 07/22/18 16:12 Blood Pressure 155/109 07/22/18 15:53 O2 Sat by Pulse Oximetry 98 07/22/18 16:12 Oxygen Delivery Oxygen Delivery Room Air Medical Decision Making - MDM Narrative Medical decision making narrative: 47-year-old female presents emergency department with concern for COPD exacerbation, chest tightness. Patient is not hypoxic. Not requiring oxygen via nasal cannula. However, she does appear to be very anxious and has decreased aeration throughout with wheezes. Patient given DuoNeb. After DuoNeb and steroids, Increased aeration, however, there is concern for respiratory stridor. Patient given racemic epinephrine. We are also obtaining troponin EKG as patient has history of coronary artery disease with stent placed. Chest x-ray that was obtained reveals no radiographic evidence of acute cardiopulmonary disease. Patient to be admitted to the hospitalist for further observation of both COPD exacerbation as well as chest tightness. Patient given aspirin here in the emergency department. EKG did not reveal any ischemic ST changes. Currently pending troponin. Vital Signs Temperature 98.4 F 07/22/18 15:53 Pulse Rate 99 07/22/18 15:53 Respiratory Rate 20 07/22/18 15:53 Blood Pressure 155/109 07/22/18 15:53 O2 Sat by Pulse Oximetry 99 07/22/18 15:53 Temperature 98.4 F 07/22/18 15:53 Pulse Rate 112 07/22/18 17:00 Respiratory Rate 28 07/22/18 17:00 Blood Pressure 137/112 07/22/18 17:00 O2 Sat by Pulse Oximetry 96 07/22/18 17:00 Oxygen Delivery Oxygen Delivery Room Air Chest X-Ray 07/22/18 15:54 IMPRESSION: No radiographic evidence of acute cardiopulmonary disease. D/ / Mitch Orona / Mitch Orona Interpreting Provider: Mitch Orona - Lab Data Result diagrams: 07/22/18 16:33 Lab Results 07/22/18 Range/Units 16:33 WBC 6.4 (4.3-11.1) K/mcL RBC 4.10 (3.82-4.97) M/mcL Hgb 12.6 (11.5-15.4) g/dL Hct 38.5 (35.3-44.9) % MCV 93.9 (83.0-100.0) fL MCH 30.7 (28.0-33.3) pg MCHC 32.7 (31.6-35.5) g/dL RDW 15.3 H (11.5-14.5) % Plt Count 231 (140-400) K/mcL MPV 9.7 (9.4-12.4) fL Immature Gran % 0.5 (0-4) % Seg Neutrophils % 72.2 % Lymphocytes % 20.7 % Monocytes % 4.7 % Eosinophils % 1.6 % Basophils % 0.3 % Neutrophils # 4.7 (1.6-8.9) K/mcL Lymphocytes # 1.3 (0.6-4.6) K/mcL Monocytes # 0.3 (0.0-1.3) K/mcL Eosinophils # 0.1 (0.0-0.6) K/mcL Basophils # 0.0 (0.0-0.2) K/mcL - EKG Data EKG #1 EKG attestation: Yes I reviewed and interpreted this EKG. EKG results narrative: 16:02 Heart rate 100 bpm, MI interval 125 ms, QRS duration 88 ms, QT 405 ms, otherwise . Sinus tachycardia with a ventricular rate of 100 bpm. No evidence of any ischemic ST changes.
[2018-07-22 16:49] LABS: Basophils % 0.3 %; Eosinophils # 0.1 K/mcL (0.0-0.6); Eosinophils % 1.6 %; Hematocrit 38.5 % (35.3-44.9); Hemoglobin 12.6 g/dL (11.5-15.4); Immature Granulocytes % 0.5 % (0-4); Lymphocytes # 1.3 K/mcL (0.6-4.6); Lymphocytes % 20.7 %; Mean Corpuscular HGB Conc 32.7 g/dL (31.6-35.5); Mean Corpuscular Hemoglobin 30.7 pg (28.0-33.3); Mean Corpuscular Volume 93.9 fL (83.0-100.0); Mean Platelet Volume 9.7 fL (9.4-12.4); Monocytes # 0.3 K/mcL (0.0-1.3); Monocytes % 4.7 %; Neutrophils # 4.7 K/mcL (1.6-8.9); Platelet Count 231 K/mcL (140-400); Red Cell Distribution Width 15.3 % (11.5-14.5); Segmented Neutrophils % 72.2 %
[2018-07-22] MEDS ORDERED: Racepinephrine Neb 0.5 ML VIAL IH ONE (16:53)
--- NOTE | 2018-07-22 16:58 | Emergency Department Note ---
Disposition Clinical Impression: Acute exacerbation of chronic obstructive airways disease Disposition: Still a Patient Referrals: NONE,PCP [Primary Care Provider] - Forms: ED Satisfaction Letter General Adult HPI - General Chief complaint: ED Shortness of Breath/Dyspnea Stated complaint: shortness of breath Time Seen by Provider: 07/22/18 15:54 Source: patient, EMS Limitations: no limitations Nursing Notes Reviewed: Yes Vital Signs Reviewed: Yes - History of Present Illness HPI Narrative: Attestation note I examined this patient and my medical decision-making was reviewed with the Resident Physician/COMMUNITY MENTAL HEALTH SOCIAL WORKER/PA. I agree with the documented findings, disposition and treatment plan as described except to the extent set forth below Patient seen with emergency medicine resident Edin Delacruz, please see copy of his note for details of this patient encounter Briefly: 47-year-old female smoker COPD nonhome O2 dependent presents with increasing cough shortness of breath fatigued. Comes in with the tight lungs bilateral expiratory wheezes sorry tachycardic but not hypoxic. Patient got triple DuoNeb steroids chest x-ray which showed no acute infiltrate developed small stridor getting a dose of racemic epinephrine patient will be admitted for COPD flare. Awaiting troponin. EKG shows no acute ischemic changes. Pain Scale: 7 - Related Data Home Medications Medication Instructions Recorded Confirmed Amitriptyline [Elavil] 50 mg PO HS 03/02/18 03/02/18 Amlodipine Besylate 2.5 mg PO HS 03/02/18 03/02/18 Aspirin 81 mg PO DAILY 03/02/18 03/02/18 Atorvastatin Calcium [Lipitor] 20 mg PO HS 03/02/18 03/02/18 Carvedilol [Coreg] 6.25 mg PO BID 03/02/18 03/02/18 Clopidogrel [Plavix] 75 mg PO DAILY 03/02/18 03/02/18 Duloxetine HCl [Cymbalta] 60 mg PO DAILY 03/02/18 03/02/18 Fluticasone Propionate Nasal 1 spr NS DAILY PRN 03/02/18 03/02/18 [Flonase] Gabapentin [Neurontin] 800 mg PO TID 03/02/18 03/02/18 Omeprazole [PriLOSEC] 40 mg PO DAILY 03/02/18 03/02/18 OxyCODONE/APAP 10/325 [Percocet 1 tab PO Q8H PRN 03/02/18 03/02/18 10/325 MG] SUMAtriptan Succinate [Imitrex] 100 mg PO Q2H PRN 03/02/18 03/02/18 Tiotropium Br/Olodaterol HCl 2 puff IH DAILY 03/02/18 03/02/18 [Stiolto Respimat Inhal [place]] Tizanidine HCl 4 mg PO TID PRN 03/02/18 03/02/18 Trazodone HCl 100 mg PO HS 03/02/18 03/02/18 amLODIPine [Norvasc] 5 mg PO QAM 03/02/18 03/02/18 Previous Rx's Medication Instructions Recorded Doxycycline 100 mg PO DAILY 21 Days #28 capsule 03/02/18 Diclofenac Sodium [Voltaren] 100 gm TP DAILY #1 gel..gram. 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 - Social History Smoking Status: Current every day smoker Smokeless Tobacco Status: No Alcohol use: Reports: none Drug use: Reports: none Physical Exam - General Limitations: no limitations General appearance: alert, in no apparent distress Course Vital Signs Temperature 98.4 F 07/22/18 15:53 Pulse Rate 99 07/22/18 15:53 Respiratory Rate 20 07/22/18 15:53 Blood Pressure 155/109 07/22/18 15:53 O2 Sat by Pulse Oximetry 99 07/22/18 15:53 Temperature 98.4 F 07/22/18 15:53 Pulse Rate 99 07/22/18 15:53 Respiratory Rate 28 07/22/18 16:12 Blood Pressure 155/109 07/22/18 15:53 O2 Sat by Pulse Oximetry 98 07/22/18 16:12 Oxygen Delivery Oxygen Delivery Room Air Medical Decision Making - Lab Data Result diagrams: 07/22/18 16:33 Lab Results 07/22/18 Range/Units 16:33 WBC 6.4 (4.3-11.1) K/mcL RBC 4.10 (3.82-4.97) M/mcL Hgb 12.6 (11.5-15.4) g/dL Hct 38.5 (35.3-44.9) % MCV 93.9 (83.0-100.0) fL MCH 30.7 (28.0-33.3) pg MCHC 32.7 (31.6-35.5) g/dL RDW 15.3 H (11.5-14.5) % Plt Count 231 (140-400) K/mcL MPV 9.7 (9.4-12.4) fL Immature Gran % 0.5 (0-4) % Seg Neutrophils % 72.2 % Lymphocytes % 20.7 % Monocytes % 4.7 % Eosinophils % 1.6 % Basophils % 0.3 % Neutrophils # 4.7 (1.6-8.9) K/mcL Lymphocytes # 1.3 (0.6-4.6) K/mcL Monocytes # 0.3 (0.0-1.3) K/mcL Eosinophils # 0.1 (0.0-0.6) K/mcL Basophils # 0.0 (0.0-0.2) K/mcL
[2018-07-22 17:04] LABS: BUN/Creatinine Ratio 11 (6-26); Blood Urea Nitrogen 9 mg/dL (6-20); Calcium 8.8 mg/dL (8.6-10.3); Carbon Dioxide 20 mEq/L (23-29); Chloride 113 mEq/L (98-107); Glucose 115 mg/dL (70-105); Osmolality,Calculated 294 (280-300); Potassium 3.4 mEq/L (3.5-5.1); Sodium 142 mEq/L (136-145); eGFR For Non-African Americans > 60 (> 60)
[2018-07-22] MEDS ORDERED: Aspirin 81 MG TAB.CHEW PO STA (17:05)
--- NOTE | 2018-07-22 17:52 | Emergency Department Note ---
Addendum entered and electronically signed by Tiana Giles 07/22/18 18:53: Patient admitted to hospitalist, Dr. Day but CTA chest pending. Sign out given to resident physician, Dr. Julio Cesar Irby who will review results of CTA chest and make recommendations as is necessary. Original Note: Disposition Clinical Impression: Acute exacerbation of chronic obstructive airways disease Chest pain Qualifiers: Chest pain type: unspecified Qualified Code(s): R07.9 - Chest pain, unspecified Disposition: Still a Patient Referrals: NONE,PCP [Primary Care Provider] - Forms: ED Satisfaction Letter General Adult HPI - General Chief complaint: ED Shortness of Breath/Dyspnea Stated complaint: shortness of breath Time Seen by Provider: 07/22/18 15:54 Source: patient, EMS Limitations: no limitations Nursing Notes Reviewed: Yes Vital Signs Reviewed: Yes - History of Present Illness HPI Narrative: Patient taken on at signout from resident physician Dr. Mora. Please see his note for full history of present illness, ROS, physical exam and initial MDM. Pain Scale: 7 - Related Data Home Medications Medication Instructions Recorded Confirmed Amitriptyline [Elavil] 50 mg PO HS 03/02/18 03/02/18 Amlodipine Besylate 2.5 mg PO HS 03/02/18 03/02/18 Aspirin 81 mg PO DAILY 03/02/18 03/02/18 Atorvastatin Calcium [Lipitor] 20 mg PO HS 03/02/18 03/02/18 Carvedilol [Coreg] 6.25 mg PO BID 03/02/18 03/02/18 Clopidogrel [Plavix] 75 mg PO DAILY 03/02/18 03/02/18 Duloxetine HCl [Cymbalta] 60 mg PO DAILY 03/02/18 03/02/18 Fluticasone Propionate Nasal 1 spr NS DAILY PRN 03/02/18 03/02/18 [Flonase] Gabapentin [Neurontin] 800 mg PO TID 03/02/18 03/02/18 Omeprazole [PriLOSEC] 40 mg PO DAILY 03/02/18 03/02/18 OxyCODONE/APAP 10/325 [Percocet 1 tab PO Q8H PRN 03/02/18 03/02/18 10/325 MG] SUMAtriptan Succinate [Imitrex] 100 mg PO Q2H PRN 03/02/18 03/02/18 Tiotropium Br/Olodaterol HCl 2 puff IH DAILY 03/02/18 03/02/18 [Stiolto Respimat Inhal [place]] Tizanidine HCl 4 mg PO TID PRN 03/02/18 03/02/18 Trazodone HCl 100 mg PO HS 03/02/18 03/02/18 amLODIPine [Norvasc] 5 mg PO QAM 03/02/18 03/02/18 Previous Rx's Medication Instructions Recorded Doxycycline 100 mg PO DAILY 21 Days #28 capsule 03/02/18 Diclofenac Sodium [Voltaren] 100 gm TP DAILY #1 gel..gram. 03/16/18 Allergies Allergy/AdvReac Type Severity Reaction Status Date / Time isosorbide Allergy Headache Verified 07/22/18 16:00 morphine Allergy Itching Verified 07/22/18 16:00 Review of Systems: Patient taken on at signout from resident physician Dr. Delacruz. Please see his note for full history of present illness, ROS, physical exam and initial MDM. Constitutional: Denies: fever Cardiovascular: Reports: chest pain Respiratory: Reports: cough, dyspnea, wheezes. Denies: hemoptysis Gastrointestinal: Denies: abdominal pain, nausea, vomiting Genitourinary: Denies: urgency, dysuria, frequency Past Medical History - Past Medical History Medical history: Reports: COPD, coronary artery disease, hypertension, myocardial infarction, other Surgical history: Reports: cholecystectomy, hysterectomy, other Psychiatric history: Reports: anxiety, depression, PTSD LINE MAINTAINER history: Reports: no LINE MAINTAINER history - Social History Smoking Status: Current every day smoker Smokeless Tobacco Status: No Alcohol use: Reports: none Drug use: Reports: none Physical Exam - General Limitations: no limitations General appearance: alert, anxious Course Vital Signs Temperature 98.4 F 07/22/18 15:53 Pulse Rate 99 07/22/18 15:53 Respiratory Rate 20 07/22/18 15:53 Blood Pressure 155/109 07/22/18 15:53 O2 Sat by Pulse Oximetry 99 07/22/18 15:53 Temperature 98.4 F 07/22/18 15:53 Pulse Rate 105 07/22/18 17:30 Respiratory Rate 28 07/22/18 17:30 Blood Pressure 144/103 07/22/18 17:30 O2 Sat by Pulse Oximetry 94 07/22/18 17:30 Oxygen Delivery Oxygen Delivery Room Air Medical Decision Making - MDM Narrative Medical decision making narrative: Patient taken on at signout from resident physician Dr. Mora. Please see his note for full history of present illness, ROS, physical exam and initial MDM. Patient continues to be short of breath with dyspnea with deep inhalation but deemed low risk for pulmonary embolism. D-dimer ordered. Suspect this is likely exacerbation of her COPD. Patient continues to feel short of breath and therefore will be admitted to the hospital for further management. - Lab Data Result diagrams: 07/22/18 16:33 07/22/18 16:33 Lab Results 07/22/18 07/22/18 07/22/18 Range/Units 16:33 16:33 16:33 WBC 6.4 (4.3-11.1) K/mcL RBC 4.10 (3.82-4.97) M/mcL Hgb 12.6 (11.5-15.4) g/dL Hct 38.5 (35.3-44.9) % MCV 93.9 (83.0-100.0) fL MCH 30.7 (28.0-33.3) pg MCHC 32.7 (31.6-35.5) g/dL RDW 15.3 H (11.5-14.5) % Plt Count 231 (140-400) K/mcL MPV 9.7 (9.4-12.4) fL Immature Gran % 0.5 (0-4) % Seg Neutrophils % 72.2 % Lymphocytes % 20.7 % Monocytes % 4.7 % Eosinophils % 1.6 % Basophils % 0.3 % Neutrophils # 4.7 (1.6-8.9) K/mcL Lymphocytes # 1.3 (0.6-4.6) K/mcL Monocytes # 0.3 (0.0-1.3) K/mcL Eosinophils # 0.1 (0.0-0.6) K/mcL Basophils # 0.0 (0.0-0.2) K/mcL Sodium 142 (136-145) mEq/L Potassium 3.4 L (3.5-5.1) mEq/L Chloride 113 H (98-107) mEq/L Carbon Dioxide 20 L (23-29) mEq/L BUN 9 (6-20) mg/dL Creatinine 0.83 (0.60-1.20) mg/dL Est GFR ( Amer) > 60 (> 60) Est GFR (Non-Af Amer) > 60 (> 60) BUN/Creatinine Ratio 11 (6-26) Glucose 115 H (70-105) mg/dL Calculated Osmolality 294 (280-300) Calcium 8.8 (8.6-10.3) mg/dL Troponin I < 0.03 (< 0.04) ng/mL
[2018-07-22] MEDS ORDERED: Isovue-370 500 ML INFUS..BTL IV ONE (18:03)
[2018-07-22] MEDS ORDERED: tiZANidine 4 MG TABLET PO PRN (20:00)
[2018-07-22] MEDS ORDERED: SUMAtriptan succinate 50 MG TABLET PO PRN (20:00)
[2018-07-22] MEDS ORDERED: Ketorolac 30 MG/ML VIAL IVP ONE (20:02)
[2018-07-22] MEDS ORDERED: Potassium Chloride Elixir 20 MEQ/15 ML UDC PO ONE (20:02)
--- NOTE | 2018-07-22 20:26 | Internal Med History&Physical ---
Date of Encounter: 07/22/18 Time of Encounter: 20:23 Internal Medicine - H&P: HPI Chief complaint: SOB Admitted From: Home Plans for Post Hospital Care: Home History of present illness: Judy Bonilla is a 47 year old woman who is an active smoker with COPD and coronary artery disease s/p ME in September 2017 w/ stent placement who presents to the ER complaining of increasing shortness of breath and wheezing that started today coupled with chest tightness. She states that last night she had a bit of a sore throat with odynophagia but no fever or chills. Today she developed dyspnea which was poorly responsive to her home nebulizer therapy so she came to the ER. She received triple nebulizer treatment which has helped and is on supplemental oxygen. Her EKG did not show ischemic changes and her troponi n was negative. CTA ruled out PE and showed extensive emphysematous changes; no focal consolidations on my review. She is admitted for further management. She continues to have occasional mid-sternal chest tightness and becomes dyspneic PMHx: As above. Surgical history remarkable for hysterectomy. SHx: Smoker, denies illicit drug use. FHx: HTN in father. Review of systems: All systems reviewed and negative except as listed above in the HPI. Past Med Surg Social Fam HX - Past Medical History Medical history: COPD, coronary artery disease, hypertension, myocardial infarction, other Additional medical history: ARDS Psychiatric history: anxiety, depression, PTSD - Past Surgical History Surgical History: cholecystectomy, hysterectomy, other Additional surgical history: heart stents - Social History Smoking Status: Current every day smoker Smokeless Tobacco Status: No Alcohol use: none Drug use: none - Family History Mother Living Status: Still Living Hx Family Cardiac Disorders: Yes (cabg, chf, htn) Hx Family Respiratory Disorders: Yes (emphysema) Hx Family Endocrine Disorder: Yes (dm) Father Living Status: Still Living Hx Family Cardiac Disorders: Yes (heart disease) Internal Medicine - H&P: Meds Amitriptyline [Elavil] 50 mg PO HS 03/02/18 [History] Amlodipine Besylate 2.5 mg PO HS 03/02/18 [History] Aspirin 81 mg PO DAILY 03/02/18 [History] Atorvastatin Calcium [Lipitor] 20 mg PO HS 03/02/18 [History] Carvedilol [Coreg] 6.25 mg PO BID 03/02/18 [History] Clopidogrel [Plavix] 75 mg PO DAILY 03/02/18 [History] Doxycycline 100 mg PO DAILY 21 Days #28 capsule 03/02/18 [Rx] Duloxetine HCl [Cymbalta] 60 mg PO DAILY 03/02/18 [History] Fluticasone Propionate Nasal [Flonase] 1 spr NS DAILY PRN 03/02/18 [History] Gabapentin [Neurontin] 800 mg PO TID 03/02/18 [History] Omeprazole [PriLOSEC] 40 mg PO DAILY 03/02/18 [History] OxyCODONE/APAP 10/325 [Percocet 10/325 MG] 1 tab PO Q8H PRN 03/02/18 [History] SUMAtriptan Succinate [Imitrex] 100 mg PO Q2H PRN 03/02/18 [History] Tiotropium Br/Olodaterol HCl [Stiolto Respimat Inhal [place]] 2 puff IH DAILY 03/02/18 [History] Tizanidine HCl 4 mg PO TID PRN 03/02/18 [History] Trazodone HCl 100 mg PO HS 03/02/18 [History] amLODIPine [Norvasc] 5 mg PO QAM 03/02/18 [History] Diclofenac Sodium [Voltaren] 100 gm TP DAILY #1 gel..gram. 03/16/18 [Rx] Allergy/AdvReac Type Severity Reaction Status Date / Time isosorbide Allergy Headache Verified 07/22/18 16:00 morphine Allergy Itching Verified 07/22/18 16:00 All Systems PM: A 10-system review of systems was performed and is negative for pertinent findings except as documented above in the HPI. - Constitutional Vitals: Temp Pulse Resp BP Pulse Ox 98 F 94 25 156/98 100 07/22/18 19:13 07/22/18 19:13 07/22/18 19:13 07/22/18 19:13 07/22/18 19:13 Exam: Vitals: Reviewed General: Well-developed white female sitting up in bed with mild respiratory discomfort. Skin: Warm and supple. HEENT: Moist mucous membranes. No conjunctivae pallor. Mild uvula erythema but no oropharyngeal exudate or petechiae. Neck: No lymphadenopathy. No JVD. No carotid bruits. No palpable thyroid. Chest: Normal thoracic expansion. Diminished breath sounds bilaterally with diffuse wheezes in both lung green. Heart: Normal S1 & S2; rhythmic. No rubs or murmurs. Abdomen: Non-distended, soft and non-tender to palpation. Extremities: No clubbing, cyanosis or edema. No calf tenderness. Normal distal pulses. Neurological: Awake, alert and oriented to person, place and time. No focal deficits. Psych: Affect appropriate. Internal Med - H&P Results - Labs CBC & Chem 7: 07/22/18 16:33 07/22/18 16:33 Labs: Short CBC 07/22/18 Range/Units 16:33 WBC 6.4 (4.3-11.1) K/mcL Hgb 12.6 (11.5-15.4) g/dL Hct 38.5 (35.3-44.9) % Plt Count 231 (140-400) K/mcL Neutrophils # 4.7 (1.6-8.9) K/mcL BMP 07/22/18 16:33 Sodium 142 Potassium 3.4 L Chloride 113 H Carbon Dioxide 20 L BUN 9 Creatinine 0.83 Glucose 115 H Calcium 8.8 Cardiac Enzymes 07/22/18 Range/Units 16:33 Troponin I < 0.03 (< 0.04) ng/mL - Impressions ITS Impressions Chest X-Ray 07/22/18 15:54 IMPRESSION: No radiographic evidence of acute cardiopulmonary disease. D/ / Mitch Orona / Mitch Orona Interpreting Provider: Mitch Orona Chest CTA 07/22/18 18:03 IMPRESSION: 1. No evidence of pulmonary embolism or acute pulmonary abnormality. 2. [id number] emphysematous changes, greater than expected for age. D/ / 07/22/2018 19:19:01 Pj Arguelles MD / magali Interpreting Provider: Pj Arguelles MD - Assessment and plan (1) Acute exacerbation of chronic obstructive airways disease Current Visit: Yes Status: Acute Assessment and plan: Concern for a viral trigger given the sore throat reported initially and lack of systemic signs of bacterial illness, no pneumonia. Will obtain an influenza swab. Start azithromycin 500mg daily and nebulizer q4hrs over the next 24hrs. Supplemental oxygen as needed. Steroids. PPI prophylaxis. (2) Chest pain Current Visit: Yes Status: Acute Assessment and plan: May be associated with coughing spells and chest tightness from bronchospasm rather than actual angina. Given her recent history of ME though, will continue to monitor troponins and place her on telemetry. Qualifiers: Chest pain type: unspecified Qualified Code(s): R07.9 - Chest pain, unspecified (3) CAD (coronary artery disease) Current Visit: Yes Status: Acute Assessment and plan: Will continue dual antiplatelet and stain therapy. Qualifiers: Coronary Disease-Associated Artery/Lesion type: [place] artery [place] vs. transplanted heart: [place] heart Associated angina: without angina Qualified Code(s): I25.10 - Atherosclerotic heart disease of [place] coronary artery without angina pectoris (4) Tobacco dependence Current Visit: Yes Status: Chronic Assessment and plan: Counseled extensively. Support provided. Resources made available. (5) DVT prophylaxis Current Visit: Yes Status: Acute Assessment and plan: SubQ heparin - Time Spent With Patient Total time spent is greater than 50% in coordination of care (as documented) at patient's floor/unit and/or counseling patient: Greater than 35 minutes
[2018-07-22] MEDS: Ipratropium/Albuterol Neb 3 ML IH SCH ×2 (21:48→23:59)
[2018-07-22] MEDS: *HR* Heparin 5,000 UNIT/ML VIAL SQ SCH (21:56)
[2018-07-22] MEDS: Gabapentin 400 MG CAPSULE PO SCH (21:56)
[2018-07-22] MEDS: Fluticasone Propionate Nasal 50 MCG/SPRAY BOTTLE NS SCH (21:56)
[2018-07-22] MEDS: traZODone 50 MG TABLET PO SCH (21:57)
[2018-07-23] MEDS: *HR* OxyCODONE/APAP 10/325 TABLET PO PRN ×3 (00:14→16:38)
[2018-07-23] MEDS: Ipratropium/Albuterol Neb 3 ML IH SCH ×6 (03:38→23:10)
[2018-07-23] MEDS: *HR* Heparin 5,000 UNIT/ML VIAL SQ SCH ×3 (05:59→20:59)
[2018-07-23] MEDS: Aspirin 81 MG TAB.CHEW PO SCH (07:35)
[2018-07-23] MEDS: predniSONE 20 MG TABLET PO SCH (07:35)
[2018-07-23] MEDS: Azithromycin 250 MG TABLET PO SCH (07:35)
[2018-07-23] MEDS: Gabapentin 400 MG CAPSULE PO SCH ×3 (07:35→20:59)
[2018-07-23] MEDS: amLODIPine 5 MG TABLET PO SCH (07:35)
[2018-07-23] MEDS: Nicotine 7 MG PATCH.TD24 TD SCH (07:36)
[2018-07-23] MEDS: Fluticasone Propionate Nasal 50 MCG/SPRAY BOTTLE NS SCH (07:36)
--- NOTE | 2018-07-23 13:20 | Internal Med Progress Note ---
Hospitalist Progress Note - Encounter Date of Encounter: 07/23/18 Time of Encounter: 10:40 - Subjective Interval History: Ms. Bonilla is 47-year-old female with a known past medical history of COPD, CAD, hypertension, [place] who is not on any home oxygen dependent presented to ER with cough, shortness of breath, chest discomfort and generalized body pains. She also had URI symptoms with hoarseness of voice. Her influenza A came back positive. Pt stated she is feeling better today. Denied any CP. Still has generalized body pains. No cough. - Exam Vitals: Temp Pulse Resp BP Pulse Ox 97.6 F 69 16 130/85 97 07/23/18 12:17 07/23/18 12:17 07/23/18 12:17 07/23/18 12:17 07/23/18 12:17 Exam: Gen: Alert, awake, Oriented to time,place and person Chest: Diminished breath sounds B/L,Mild wheezing, No crackles, No rales Heart: S1S2+ RRR No murmurs Abd: Soft, NT, BS +, No organomegaly Ext: No edema, pulses are palpable, No calf tenderness Neuro : Benign findings Skin: No rash. - Assessment and Plan (1) Bronchitis Current Visit: Yes Status: Acute Assessment and Plan: Purulent bronchitis Cont empirical abx Azithromycin (2) Influenza A Current Visit: Yes Status: Acute Assessment and Plan: started on Tamiflu (3) Acute exacerbation of chronic obstructive airways disease Current Visit: Yes Status: Acute Assessment and Plan: Triggered by influenza A viral infection continue symptomatic and supportive care continue nebulizer treatments wean her off the oxygen continue prophylactic antibiotic azithromycin continue short course of oral steroids (4) Chest pain Current Visit: Yes Status: Acute Assessment and Plan: Atypical CP due to Flu / URI and Cough Negative trop and normal EKG no further work up needed (5) CAD (coronary artery disease) Current Visit: Yes Status: Acute Assessment and Plan: Resumed home medications (6) Tobacco dependence Current Visit: Yes Status: Chronic Assessment and Plan: Counseled to quit smoking placed on nicotine patch - Time Spent with Patient Total time spent is greater than 50% in coordination of care (as documented) at patient's floor/unit and/or counseling patient: Internal Medicine: Result - Labs CBC & Chem 7: 07/22/18 16:33 07/22/18 16:33 Labs: Short CBC 07/22/18 Range/Units 16:33 WBC 6.4 (4.3-11.1) K/mcL Hgb 12.6 (11.5-15.4) g/dL Hct 38.5 (35.3-44.9) % Plt Count 231 (140-400) K/mcL Neutrophils # 4.7 (1.6-8.9) K/mcL BMP 07/22/18 16:33 Sodium 142 Potassium 3.4 L Chloride 113 H Carbon Dioxide 20 L BUN 9 Creatinine 0.83 Glucose 115 H Calcium 8.8 Cardiac Enzymes 07/22/18 07/22/18 Range/Units 16:33 22:05 Troponin I < 0.03 < 0.03 (< 0.04) ng/mL - ABG Interpretation ABG results: PT/INR, D-dimer D-Dimer 745 ng/mLFEU (0-500) H 07/22/18 17:37 - Impressions Impressions Chest X-Ray 07/22/18 15:54 IMPRESSION: No radiographic evidence of acute cardiopulmonary disease. D/ / Mitch Orona / Mitch Orona Interpreting Provider: Mitch Orona Chest CTA 07/22/18 18:03 IMPRESSION: 1. No evidence of pulmonary embolism or acute pulmonary abnormality. 2. [id number] emphysematous changes, greater than expected for age. D/ / 07/22/2018 19:19:01 Pj Arguelles MD / magali Interpreting Provider: Pj Arguelles MD Consult Discharge Plan - Plan Referrals: NONE,PCP [Primary Care Provider] - (4) Chest pain Qualifiers: Chest pain type: unspecified Qualified Code(s): R07.9 - Chest pain, unspecified (5) CAD (coronary artery disease) Qualifiers: Coronary Disease-Associated Artery/Lesion type: [place] artery [place] vs. transplanted heart: [place] heart Associated angina: without angina Qualified Code(s): I25.10 - Atherosclerotic heart disease of [place] coronary artery without angina pectoris
[2018-07-23] MEDS: traZODone 50 MG TABLET PO SCH (20:59)
[2018-07-23] MEDS: Menthol 9.1 MG LOZENGE PO PRN (20:59)
[2018-07-24] MEDS: *HR* OxyCODONE/APAP 10/325 TABLET PO PRN (01:16)
[2018-07-24] MEDS: Ipratropium/Albuterol Neb 3 ML IH SCH ×2 (05:54→08:18)
[2018-07-24] MEDS: *HR* Heparin 5,000 UNIT/ML VIAL SQ SCH (05:57)
[2018-07-24 07:15] VITALS: BP 172/104
[2018-07-24] MEDS: Nicotine 7 MG PATCH.TD24 TD SCH (08:19)
[2018-07-24] MEDS: amLODIPine 5 MG TABLET PO SCH (08:27)
[2018-07-24] MEDS: Gabapentin 400 MG CAPSULE PO SCH (08:27)
[2018-07-24] MEDS: Azithromycin 250 MG TABLET PO SCH (08:27)
[2018-07-24] MEDS: predniSONE 20 MG TABLET PO SCH (08:27)
[2018-07-24] MEDS: Aspirin 81 MG TAB.CHEW PO SCH (08:27)
[2018-07-24] MEDS: Fluticasone Propionate Nasal 50 MCG/SPRAY BOTTLE NS SCH (08:28)
[2018-07-24] MEDS: Menthol 9.1 MG LOZENGE PO PRN (08:29)
--- NOTE | 2018-07-24 09:16 | Discharge Summary ---
- NOTES TO OUTPATIENT PROVIDER Notes to Outpatient Provider: f/u with PCP in one week. Please quit smoking Date of Encounter: 07/24/18 Time of Encounter: 09:14 - Discharge Diagnosis (1) Bronchitis Priority: Primary Status: Acute (2) Influenza A Priority: Primary Status: Acute (3) Acute exacerbation of chronic obstructive airways disease Priority: Primary Status: Acute (4) Chest pain Priority: Secondary Status: Acute Qualifiers: Chest pain type: unspecified Qualified Code(s): R07.9 - Chest pain, unspecified (5) CAD (coronary artery disease) Priority: Secondary Status: Acute Qualifiers: Coronary Disease-Associated Artery/Lesion type: [place] artery [place] vs. transplanted heart: [place] heart Associated angina: without angina Qualified Code(s): I25.10 - Atherosclerotic heart disease of [place] coronary artery without angina pectoris (6) Tobacco dependence Priority: Secondary Status: Chronic Hospital course: Ms. Bonilla is 47-year-old female with a known past medical history of COPD, CAD, hypertension, [place] who is not on any home oxygen dependent presented to ER with cough, shortness of breath, chest discomfort and generalized body pains. She also had URI symptoms with hoarseness of voice. Her influenza A came back positive. She was started on empirical abx Azithromycin, Tamiflu and oral steroids. Her symptoms improved today. Remained afebrile. She is breathing comfortably on RA. - Time Spent with Patient Total time spent providing and/or coordinating discharge services: - Discharge Medications Prescriptions: Azithromycin [Zithromax] 250 mg PO DAILY #2 tablet Oseltamivir [Tamiflu] 75 mg PO BID #6 capsule predniSONE [PredniSONE] 40 mg PO DAILY #6 tablet Home Medications: Amitriptyline [Elavil] 50 mg PO HS 03/02/18 [History] Aspirin 81 mg PO DAILY 03/02/18 [History] Atorvastatin Calcium [Lipitor] 20 mg PO HS 03/02/18 [History] Clopidogrel [Plavix] 75 mg PO DAILY 03/02/18 [History] Duloxetine HCl [Cymbalta] 60 mg PO DAILY 03/02/18 [History] Fluticasone Propionate Nasal [Flonase] 1 spr NS DAILY PRN 03/02/18 [History] Gabapentin [Neurontin] 800 mg PO TID 03/02/18 [History] Omeprazole [PriLOSEC] 40 mg PO DAILY 03/02/18 [History] OxyCODONE/APAP 10/325 [Percocet 10/325 MG] 1 tab PO Q8H PRN 03/02/18 [History] SUMAtriptan Succinate [Imitrex] 100 mg PO Q2H PRN 03/02/18 [History] Tiotropium Br/Olodaterol HCl [Stiolto Respimat Inhal [place]] 2 puff IH DAILY 03/02/18 [History] Tizanidine HCl 4 mg PO TID PRN 03/02/18 [History] amLODIPine [Norvasc] 5 mg PO QAM 03/02/18 [History] Amlodipine Besylate 2.5 mg PO HS 07/23/18 [History] Carvedilol [Coreg] 6.25 mg PO BID 07/23/18 [History] Cholecalciferol (D-3) [Vitamin D] 1,000 unit PO DAILY 07/23/18 [History] Melatonin 10 mg PO HS 07/23/18 [History] Naproxen 500 mg PO DAILY PRN 07/23/18 [History] hydrOXYzine HCl [Hydroxyzine HCl] 25 mg PO TID PRN 07/23/18 [History] Azithromycin [Zithromax] 250 mg PO DAILY #2 tablet 07/24/18 [Rx] Oseltamivir [Tamiflu] 75 mg PO BID #6 capsule 07/24/18 [Rx] predniSONE [PredniSONE] 40 mg PO DAILY #6 tablet 07/24/18 [Rx] Allergies/Adverse Reactions: Allergy/AdvReac Type Severity Reaction Status Date / Time isosorbide Allergy Headache Verified 07/22/18 16:00 morphine Allergy Itching Verified 07/22/18 16:00 Date of admission: 07/22/18 18:47 Primary care physician: PCP NONE - Constitutional Vitals: Temp Pulse Resp BP Pulse Ox 97.7 F 63 17 172/104 100 07/24/18 07:10 07/24/18 07:10 07/24/18 08:19 07/24/18 07:10 07/24/18 08:19 General appearance: Present: no acute distress Exam: Gen: Alert, awake, Oriented to time,place and person Chest: Diminished breath sounds B/L,Mild wheezing, No crackles, No rales Heart: S1S2+ RRR No murmurs Abd: Soft, NT, BS +, No organomegaly Ext: No edema, pulses are palpable, No calf tenderness Neuro : Benign findings Skin: No rash. - Patient Status Disposition: Home, Self-Care Condition: Good Overall status at discharge: patient is back to baseline - Discharge Instructions Follow Up With: NONE,PCP [Primary Care Provider] - - Diet and Activity Activity: increase activity as tolerated Diet: low salt diet
--- NOTE | 2018-07-27 18:57 | Electrocardiograph Report ---
[place] [id number] Test Date: 2018-07-22 Pat Name: Judy Bonilla Department: [id number] Room: 3B Gender: F Manager Laboratory: : [id number] Requested By: Kang Michel Order Number: [id number] Reading MD: Brent Rooney Measurements Intervals [place] Rate: 100 P: 61 CA: 125 QRS: 49 QRSD: 88 T: 25 QT: 405 QTc: 523 Interpretive Statements Sinus tachycardia Prolonged QT interval Electronically Signed On 07-27-2018 18:56:09 EDT by Brent Rooney
== END 2018-07-24 10:28 | disposition home or self-care (01) ==
LOC: 3BNU 15:47 → EMEROOARM 15:47 → SUATTDRO 18:47 → 3BNU 18:55
PROVIDERS: ADMIT Internal Medicine; ATTEND Family Medicine